=== PATIENT | female | born 1940 | race Caucasian/White ===

== ENCOUNTER → 2016-08-02 | Outpatient (CLI) | payer MEDICARE, BC ==
[2016-08-02 09:20] LABS: ANION GAP 12 (5-19); BLOOD UREA NITROGEN 14 mg/dL (7-20); CALCIUM 9.6 mg/dL (8.4-10.2); CARBON DIOXIDE 32 mmol/L (22-30); CHLORIDE 98 mmol/L (98-107); CHOLESTEROL 204.48 mg/dL (0-200); CREATININE RESULT 0.84 mg/dL (0.52-1.25); Direct HDL 38 mg/dL (>40); GLUCOSE 94 mg/dL (75-110); POTASSIUM 4.8 mmol/L (3.6-5.0); SODIUM 141.7 mmol/L (137-145); TRIGLYCERIDES 200 mg/dL (<150)
[2016-08-02 09:31] LABS: DIRECT LDL 125 mg/dL (<100)
== END ==
LOC: OD 07:58
PROVIDERS: ATTEND Family Medicine
DX: E03.9 Hypothyroidism, unspecified (principal); E78.5 Hyperlipidemia, unspecified; I10 Essential (primary) hypertension; Z79.899 Other long term (current) drug therapy
CPT/HCPCS: 36415; 80048; 80061; 83036; 84443

== ENCOUNTER → 2017-08-07 | Outpatient (CLI) | payer MEDICARE, BC ==
[2017-08-07 13:15] LABS: ANION GAP 13 (5-19); BLOOD UREA NITROGEN 18 mg/dL (7-20); CALCIUM 9.9 mg/dL (8.4-10.2); CARBON DIOXIDE 30 mmol/L (22-30); CHLORIDE 99 mmol/L (98-107); CHOLESTEROL 260.67 mg/dL (0-200); GLUCOSE 93 mg/dL (75-110); POTASSIUM 4.9 mmol/L (3.6-5.0); SODIUM 142.2 mmol/L (137-145); TRIGLYCERIDES 251 mg/dL (<150)
[2017-08-07 13:26] LABS: DIRECT LDL 156 mg/dL (<100)
[2017-08-07 13:31] LABS: VLDL CHOLESTEROL 50.2 mg/dL (10-31)
== END ==
LOC: OD 12:01
PROVIDERS: ATTEND Family Medicine
DX: E03.9 Hypothyroidism, unspecified (principal); E78.5 Hyperlipidemia, unspecified; I10 Essential (primary) hypertension; Z79.899 Other long term (current) drug therapy
CPT/HCPCS: 36415; 80048; 80061; 83036; 84443

== ENCOUNTER → 2018-05-07 | Outpatient (CLI) | payer MEDICARE, BC ==
--- NOTE | 2018-05-07 12:23 | RADIOLOGY REPORT (SQ) ---
EXAM DESCRIPTION: HIP LEFT AP/LATERAL COMPLETED DATE/TIME: 05/07/2018 11:46 am REASON FOR STUDY: PAIN IN LEFT HIP M25.552 PAIN IN LEFT HIP COMPARISON: 12/14/2006 NUMBER OF VIEWS: Two views. TECHNIQUE: AP pelvis and additional frog-leg view of the left hip. LIMITATIONS: None. FINDINGS: MINERALIZATION: Mild osteopenia. LEFT HIP: No fracture or dislocation. Mild hip joint narrowing is suggested. RIGHT HIP: Mild hip joint narrowing is suggested. No fracture or dislocation. PUBIS AND ISCHIUM: No fracture. PELVIS: No fracture. SACRUM: No fracture or dislocation. No worrisome bone lesions. LOWER LUMBAR SPINE: Interval placement of hardware with fusion visualized lower lumbosacral spine. Neural stimulating catheter, new finding on the right. SOFT TISSUES: No findings. OTHER: No other significant finding. IMPRESSION: 1. Since the previous examination dated 12/14/2006, interval placement of hardware with fusion visualized lower lumbosacral spine. Neural stimulating catheter, on the right. 2. Mild degenerative changes at the hips. 3. No acute osseous findings. TECHNICAL DOCUMENTATION: JOB ID: [id number] [employer]- All Rights Reserved Reading location - IP/workstation name: [email or web address]
== END ==
LOC: OD 11:19
PROVIDERS: ATTEND Physician Assistant Medical
DX: M16.0 Bilateral primary osteoarthritis of hip (principal); M25.552 Pain in left hip

== ENCOUNTER → 2018-08-08 | Outpatient (CLI) | payer MEDICARE, BC ==
[2018-08-08 12:33] LABS: ANION GAP 9 (5-19); BLOOD UREA NITROGEN 14 mg/dL (7-20); CALCIUM 9.4 mg/dL (8.4-10.2); CARBON DIOXIDE 26 mmol/L (22-30); CHLORIDE 104 mmol/L (98-107); CHOLESTEROL 247.72 mg/dL (0-200); GLUCOSE 88 mg/dL (75-110); SODIUM 139.1 mmol/L (137-145); TRIGLYCERIDES 174 mg/dL (<150)
[2018-08-08 12:44] LABS: DIRECT LDL 164 mg/dL (<100)
[2018-08-08 12:46] LABS: VLDL CHOLESTEROL 34.8 mg/dL (10-31)
== END ==
LOC: OD 10:56
PROVIDERS: ATTEND Family Medicine
DX: E03.9 Hypothyroidism, unspecified (principal); E78.5 Hyperlipidemia, unspecified; I10 Essential (primary) hypertension; Z79.899 Other long term (current) drug therapy
CPT/HCPCS: 36415; 80048; 80061; 83036; 84443

== ENCOUNTER → 2019-02-26 | Outpatient (CLI) | payer MEDICARE, BC ==
[2019-02-26 11:40] LABS: ABSOLUTE EOSINOPHILS # (AUTO) 0.1 10^3/uL (0.0-0.6); ABSOLUTE LYMPHOCYTES (AUTO) 1.8 10^3/uL (0.5-4.7); ABSOLUTE MONOCYTES (AUTO) 0.4 10^3/uL (0.1-1.4); ABSOLUTE NEUT (AUTO) 3.2 10^3/uL (1.7-8.2); BASOPHILS % (AUTO) 0.6 % (0-2); EOSINOPHILS % (AUTO) 1.6 % (0-6); HEMOGLOBIN 12.6 g/dL (12.0-15.5); LYMPHOCYTES % (AUTO) 33.1 % (13-45); MEAN CORPUSCULAR HEMOGLOBIN 29.8 pg (27.0-33.4); MEAN CORPUSCULAR VOLUME 88 fl (80-97); MONOCYTES % (AUTO) 7.7 % (3-13); PLATELET COUNT 183 10^3/uL (150-450); RED BLOOD COUNT 4.23 10^6/uL (3.72-5.28); TOTAL CELLS COUNTED % (AUTO) 100 %; WHITE BLOOD COUNT 5.6 10^3/uL (4.0-10.5)
[2019-02-26 12:08] LABS: ANION GAP 10 (5-19); BLOOD UREA NITROGEN 13 mg/dL (7-20); CALCIUM 8.5 mg/dL (8.4-10.2); CARBON DIOXIDE 33 mmol/L (22-30); CHLORIDE 101 mmol/L (98-107); GLUCOSE 90 mg/dL (75-110); POTASSIUM 3.5 mmol/L (3.6-5.0); URIC ACID 9.4 mg/dL (2.5-7.5)
[2019-02-26 12:12] LABS: ERYTHROCYTE SEDIMENTATION RATE 21 mm/hr (0-30)
[2019-02-26 12:23] LABS: C-REACTIVE PROTEIN < 5.0 mg/L (<10.0)
--- NOTE | 2019-02-26 16:19 | EKG REPORT ---
SEVERITY:- BORDERLINE ECG - SINUS RHYTHM BORDERLINE T ABNORMALITIES, ANT-LAT LEADS : Confirmed by: Bebe Castillo MD 26-Feb-2019 16:17:15
[2019-02-28 07:16] LABS: CYCLIC CITRUL PEPTIDE IGG/A AB 7 units (0-19)
== END ==
LOC: OD 10:25
PROVIDERS: ATTEND Orthopaedic Surgery
DX: Z01.810 Encounter for preprocedural cardiovascular examination (principal); Z01.812 Encounter for preprocedural laboratory examination; Z01.818 Encounter for other preprocedural examination; Z01.89 Encounter for other specified special examinations; M25.50 Pain in unspecified joint
CPT/HCPCS: 36415; 80048; 84550; 85025; 85652; 86038; 86140; 86200; 86430; 93005; 93010

== ENCOUNTER 2019-09-01 18:10 | Inpatient (IN) | payer MEDICARE, BC ==
[2019-09-01] MEDS ORDERED: PIPERACILLIN/TAZOBACTAM 4.5 GM VIAL IV ONE (18:32)
[2019-09-01] MEDS ORDERED: NORMAL SALINE 1000 ML 1,000 ML IV ONE (18:34)
--- NOTE | 2019-09-01 18:37 | ER Document Report ---
ED Medical Screen (RME) - General Chief Complaint: Altered Mental Status Stated Complaint: FALL/ALTERED MENTAL STATUS Time Seen by Provider: 09/01/19 18:32 Primary Care Provider: CARLOS COLLINS DO [Primary Care Provider] - Follow up as needed Mode of Arrival: Medic Information source: Emergency Med Personnel Notes: 78-year-old female presented to ED for altered mental status generalized weakness and foul-smelling urine. She states she has been weak and unsteady for about 3 days. She states she slid out of her recliner today with just before coming to the emergency room. She is able to answer some questions appropriately. According to the family she was having some drainage from her left ear no drainage noted at this time. She does have rhonchi throughout. O2 sats are between 86 and 90. Patient was started on septic protocol. I have greeted and performed a rapid initial assessment of this patient. A comprehensive ED assessment and evaluation of the patient, analysis of test results and completion of medical decision making process will be conducted by an additional ED providers. TRAVEL OUTSIDE OF THE [place] IN LAST 30 DAYS: No - Related Data Allergies/Adverse Reactions: hydromorphone HCl [From Dilaudid] Allergy (Severe, Verified 01/26/16 09:58) too sleepy lisinopril [Lisinopril] Allergy (Severe, Verified 01/26/16 09:58) heart races Past Medical History - Past Medical History Cardiac Medical History: Reports: Hx Hypercholesterolemia, Hx Hypertension - on meds Denies: Hx Coronary Artery Disease, Hx Heart Attack Pulmonary Medical History: Denies: Hx Asthma, Hx Bronchitis, Hx COPD, Hx Pneumonia Neurological Medical History: Denies: Hx Cerebrovascular Accident, Hx Seizures Musculoskeltal Medical History: Reports Hx Arthritis - back, hips Past Surgical History: Reports: Hx Genitourinary Surgery - bladder sling, Hx Hysterectomy, Hx Orthopedic Surgery - left knee replace left shoulder repair - Immunizations Hx Diphtheria, Pertussis, Tetanus Vaccination: Yes Doctor's Discharge - Discharge Referrals: CARLOS COLLINS DO [Primary Care Provider] - Follow up as needed
[2019-09-01 19:18] LABS: HEMATOCRIT 38.7 % (36.0-47.0); MEAN CORPUSCULAR HEMOGLOBIN 29.7 pg (27.0-33.4); MEAN CORPUSCULAR HGB CONC 33.7 g/dL (32.0-36.0); MEAN CORPUSCULAR VOLUME 88 fl (80-97); PLATELET COUNT 163 10^3/uL (150-450); RED BLOOD COUNT 4.39 10^6/uL (3.72-5.28); RED CELL DISTRIBUTION WIDTH 13.9 % (11.5-14.0); WHITE BLOOD COUNT 16.5 10^3/uL (4.0-10.5)
[2019-09-01 19:24] LABS: VENOUS BLOOD BASE EXCESS 6.2 mmol/L; VENOUS BLOOD HCO3 32.1 mmol/L (20-32); VENOUS BLOOD PCO2 51.1 mmHg (35-63); VENOUS BLOOD PH 7.42 (7.30-7.42)
--- NOTE | 2019-09-01 19:34 | RADIOLOGY REPORT (SQ) ---
EXAM DESCRIPTION: CHEST SINGLE VIEW IMAGES COMPLETED DATE/TIME: 09/01/2019 6:17 pm REASON FOR STUDY: fever short of breath ams COMPARISON: None. EXAM PARAMETERS: NUMBER OF VIEWS: One view. TECHNIQUE: Single frontal radiographic view of the chest acquired. RADIATION DOSE: NA LIMITATIONS: None. FINDINGS: LUNGS AND PLEURA: No opacities, masses or pneumothorax. No pleural effusion. MEDIASTINUM AND HILAR STRUCTURES: No masses. Contour normal. HEART AND VASCULAR STRUCTURES: Heart normal in size. Normal vasculature. BONES: No acute findings. HARDWARE: Spinal stimulator wires are noted. OTHER: Moderate hiatal hernia. IMPRESSION: No acute cardiopulmonary disease. Moderate hiatal hernia. TECHNICAL DOCUMENTATION: JOB ID: [id number] [employer]- All Rights Reserved Reading location - IP/workstation name: [email or web address]
[2019-09-01 19:36] LABS: INTERNATIONAL RATION (INR) 0.97; PROTHROMBIN TIME 12.9 SEC (11.4-15.4)
[2019-09-01 19:37] LABS: ALBUMIN 4.2 g/dL (3.5-5.0); ALKALINE PHOSPHATASE 74 U/L (38-126); ANION GAP 11 (5-19); ASPARTATE AMINO TRANSFERASE 22 U/L (14-36); BILIRUBIN,DIRECT 0.1 mg/dL (0.0-0.4); BLOOD UREA NITROGEN 17 mg/dL (7-20); CARBON DIOXIDE 31 mmol/L (22-30); CHLORIDE 96 mmol/L (98-107); GLUCOSE 141 mg/dL (75-110); POTASSIUM 3.5 mmol/L (3.6-5.0); TOTAL PROTEIN 7.1 g/dL (6.3-8.2)
[2019-09-01 19:39] LABS: ABSOLUTE LYMPHOCYTES# (MANUAL) 0.7 10^3/uL (0.5-4.7); ABSOLUTE MONOCYTES # (MANUAL) 0.7 10^3/uL (0.1-1.4); BAND NEUTROPHILS % (MANUAL) 2 % (3-5); BASOPHILS % (MANUAL) 0 % (0-2); EOSINOPHILS % (MANUAL) 0 % (0-6); LYMPHOCYTES % (MANUAL) 3 % (13-45); MONOCYTES % (MANUAL) 4 % (3-13); SEGMENTED NEUTROPHILS % (MAN) 90 % (42-78); TOTAL CELLS COUNTED 100
[2019-09-01 19:42] LABS: PLATELET COMMENT ADEQUATE; TOXIC GRANULATION SLIGHT
[2019-09-01 20:03] LABS: APPEARANCE,URINE SLIGHTLY-CLOUDY; BILIRUBIN,URINE NEGATIVE (NEGATIVE); COLOR,URINE YELLOW; GLUCOSE, URINE NEGATIVE (NEGATIVE); KETONES,URINE NEGATIVE (NEGATIVE); PROTEIN,URINE NEGATIVE (NEGATIVE); URINE SPECIFIC GRAVITY 1.008; UROBILINOGEN,URINE NEGATIVE mg/dL (<2.0)
[2019-09-01] MEDS ORDERED: NORMAL SALINE IV ONE (20:50)
--- NOTE | 2019-09-01 20:58 | ER Document Report ---
Entered by STEPAN PHILLIPS SCRIBE 09/01/192047 Acting as scribe for:BJ CEE IV, MD ED General - General Chief Complaint: General Weakness Stated Complaint: WEAKNESS Time Seen by Provider: 09/01/19 18:32 Mode of Arrival: Medic Information source: Patient, Emergency Med Personnel Notes: This 78 year old female patient with a history of septic shock due to UTI brought in by EMS from home presents to the ED today with complaints of altered mental status, generalized weakness, and foul-smelling urine for the past x3 days. EMS reports that the patient was sitting in the recliner and slid out, so the patient's called EMS. According to EMS, patient has had similar symptoms in the past and was diagnosed with an UTI. EMS states that the patient was febrile with a temperature of 100.4, so they administered x975 mg Tylenol en route. Patient also reports poor appetite, left ear discharge, and a blister to the left forearm that was noticed today. TRAVEL OUTSIDE OF THE [place] IN LAST 30 DAYS: No - Related Data Allergies/Adverse Reactions: hydromorphone HCl [From Dilaudid] Allergy (Severe, Verified 01/26/16 09:58) too sleepy lisinopril [Lisinopril] Allergy (Severe, Verified 01/26/16 09:58) heart races Past Medical History - General Information source: Emergency Med Personnel - Social History Smoking Status: Never Smoker Cigarette use (# per day): No Chew tobacco use (# tins/day): No Smoking Education Provided: No Frequency of alcohol use: None Drug Abuse: None Lives with: Spouse/Significant other Family History: Reviewed & Not Pertinent Patient has suicidal ideation: No Patient has homicidal ideation: No - Past Medical History Cardiac Medical History: Reports: Hx Hypercholesterolemia, Hx Hypertension - on meds Musculoskeletal Medical History: Reports Hx Arthritis - back, hips Past Surgical History: Reports: Hx Genitourinary Surgery - bladder sling, Hx Hysterectomy, Hx Orthopedic Surgery - left knee replace left shoulder repair - Immunizations Hx Diphtheria, Pertussis, Tetanus Vaccination: Yes Hx Pneumococcal Vaccination: 04/17/13 Review of Systems - Review of Systems Constitutional: See HPI, Weakness EENT: See HPI, Ear discharge Cardiovascular: No symptoms reported Respiratory: No symptoms reported Gastrointestinal: See HPI, Poor appetite Genitourinary: See HPI, Other - Foul-smelling urine Female Genitourinary: No symptoms reported Musculoskeletal: No symptoms reported Skin: See HPI, Other - Blister Hematologic/Lymphatic: No symptoms reported Neurological/Psychological: See HPI, Other - Altered mental status -: Yes All other systems reviewed and negative Physical Exam - Vital signs Vitals: Resp Pulse Ox 14 96 09/01/19 18:20 09/01/19 18:20 Interpretation: Normal - General General appearance: Alert In distress: None - HEENT Head: Normocephalic, Atraumatic Eyes: Normal Pupils: PERRL - Respiratory Respiratory status: Other - 4L O2 via NC Chest status: Nontender Breath sounds: Normal Chest palpation: Normal - Cardiovascular Rhythm: Regular Heart sounds: Normal auscultation Murmur: No Friction rub: No Gallop: None auscultated - Abdominal Inspection: Normal Distension: No distension Bowel sounds: Normal Tenderness: Nontender - Abdomen soft Organomegaly: No organomegaly - Back Back: Normal, Nontender - Extremities General upper extremity: Normal inspection General lower extremity: Normal inspection. No: Edema - Neurological Neuro grossly intact: Yes - Psychological Associated symptoms: Normal affect, Normal mood - Skin Skin irregularity: Erythema - Vesicular rash noted to dorsal surface of left forearm with surrounding erythema and warmth. No weeping Course - Re-evaluation Re-evalutation: 09/01/19 21:02 Results of ED MSE discussed with patient. All questions were answered. Patient advised admission is recommended for treatment of UTI with IV antibiotics given the patient's history of septic shock secondary to UTI in the past. Patient agreed with plan for admission. - Vital Signs Vital signs: Temp Pulse Resp BP Pulse Ox 97.5 F 88 11 L 102/64 100 09/01/19 21:58 09/01/19 18:21 09/01/19 21:01 09/01/19 21:00 09/01/19 21:01 - Laboratory Result Diagrams: 09/01/19 18:44 09/01/19 18:44 Laboratory results interpreted by me: 09/01/19 09/01/19 09/01/19 18:44 18:44 18:44 WBC 16.5 H Seg Neuts % (Manual) 90 H Band Neutrophils % 2 L Lymphocytes % (Manual) 3 L Abs Neuts (Manual) 15.2 H VBG HCO3 32.1 H Potassium 3.5 L Chloride 96 L Carbon Dioxide 31 H Est GFR ( Amer) 50 L Est GFR (MDRD) Non-Af 41 L Glucose 141 H POC Glucose Urine Nitrite (Reflex) Leukocyte Esterase Rfl 09/01/19 09/01/19 19:19 19:45 WBC Seg Neuts % (Manual) Band Neutrophils % Lymphocytes % (Manual) Abs Neuts (Manual) VBG HCO3 Potassium Chloride Carbon Dioxide Est GFR ( Amer) Est GFR (MDRD) Non-Af Glucose POC Glucose 133 H Urine Nitrite (Reflex) POSITIVE H Leukocyte Esterase Rfl MODERATE H - Diagnostic Test Radiology reviewed: Reports reviewed Discharge - Discharge Clinical Impression: SIRS (systemic inflammatory response syndrome) UTI (urinary tract infection) Qualifiers: Urinary tract infection type: site unspecified Hematuria presence: without hematuria Qualified Code(s): N39.0 - Urinary tract infection, site not specified Condition: Good Disposition: ADMITTED INPATIENT Admitting Provider: Waldo (Hospitalist) Unit Admitted: Medical Floor I personally performed the services described in the documentation, reviewed and edited the documentation which was dictated to the scribe in my presence, and it accurately records my words and actions.
[2019-09-01] MEDS ORDERED: ONDANSETRON HCL INJ/PF 4 MG/2 ML SDV IV PRN (21:29)
[2019-09-01] MEDS ORDERED: MAG HYDROX/AL HYDROX/SIMETH SUSP 30 ML UDCUP PO PRN (21:29)
[2019-09-01] MEDS ORDERED: MAGNESIUM HYDROXIDE SUSP 30 ML UDCUP PO PRN (21:29)
[2019-09-01] MEDS ORDERED: HYDRALAZINE HCL INJ/PF 20 MG/1 ML SDV IV PRN (21:34)
[2019-09-01] MEDS ORDERED: GUAIFENESIN SYRP 200 MG/10 ML UDC PO PRN (21:34)
[2019-09-01] MEDS ORDERED: MORPHINE SULFATE 10 MG/ML INJ IV PRN ×3 (21:34)
[2019-09-01] MEDS: HEPARIN SOD (PORCINE) 5,000 UNIT/ML 1 ML VIAL SUBCUT SCH (22:12)
[2019-09-01] MEDS: NEOMY SULF/POLYMYX B SULF/HC OTIC SUSP 10 ML AS SCH (22:13)
[2019-09-01] MEDS: CEFTRIAXONE 1 GM/D5W RTU 1 GM/50 ML RTUPB IV SCH (22:14)
--- NOTE | 2019-09-01 22:15 | EKG REPORT ---
SEVERITY:- ABNORMAL ECG - SINUS RHYTHM INFERIOR INFARCT, AGE INDETERMINATE BORDERLINE R WAVE PROGRESSION, ANTERIOR LEADS : Confirmed by: Julia Palomo 01-Sep-2019 22:14:54
[2019-09-01] MEDS: DEXTROSE 5%-LACTATED RINGERS 1,000 ML IV PRN (23:34)
--- NOTE | 2019-09-02 00:10 | PDOC H&P ---
History of Present Illness Admission Date/PCP: 09/01/2019 21:02 CARLOS COLLINS DO Patient complains of: Generalized weakness History of Present Illness: ANA CABRERA is a 78 year old female who presented to the emergency room via EMS from home with a 3-day history of generalized weakness. Patient is mildly lethargic but admits that she has experienced progressive generalized weakness over the last 3 days becoming severe today, when she could no longer get out of her chair at home. Her weakness has been accompanied by a decrease in appetite and an increase in lethargy/somnolence. Her weakness has been associated with foul-smelling urine. She denies any other accompanying or associated signs and symptoms. She admits that she has experienced numerous prior episodes in the past with urinary tract infections often resulting in sepsis. She has not identified any aggravating or ameliorating factors for her generalized weakness. EMS documented a fever of 100.4 F upon their arrival at the scene. In the emergency room the patient has been afebrile, however she was noted to have an elevated white blood count at 16.5 and urinalysis significant for pyuria and a positive nitrite. The patient was treated with empiric antibiotics in the emergency room and subsequently admitted to the hospital for further evaluation and treatment. Past Medical History Cardiac Medical History: Reports: Hyperlipidema, Hypertension - on meds Denies: Coronary Artery Disease, Myocardial Infarction Pulmonary Medical History: Denies: Asthma, Bronchitis, Chronic Obstructive Pulmonary Disease (COPD), Pneumonia EENT Medical History: Denies: Cataracts, Ears - Hearing aids Neurological Medical History: Denies: Hemorrhagic CVA, Ischemic CVA, Seizures Endocrine Medical History: Denies: Diabetes Mellitus Type 1, Diabetes Mellitus Type 2, Hyperthyroidism, Hypothyroidism, Obesity Renal/ Medical History: Reports: Other - Frequent urinary tract infections Denies: Chronic Kidney Disease, Nephrolithiasis Malignancy Medical History: Reports: None GI Medical History: Denies: Cirrhosis, Crohn's Disease, Hepatitis, Ulcerative Colitis Musculoskeltal Medical History: Reports: Arthritis - back, hips Denies: Gout Skin Medical History: Denies: Eczema, Psoriasis Psychiatric Medical History: Denies: Alcohol Dependency, Substance Abuse, Tobacco Dependency Traumatic Medical History: Reports: None Hematology: Denies: Anemia, Bleeding Tendencies Infectious Medical History: Reports: None Past Surgical History Past Surgical History: Reports: Hysterectomy, Knee Replacement, Orthopedic Surgery - Left knee replacement, left shoulder repair Social History Information Source: Patient, Relative - Lives with: Spouse/Significant other Smoking Status: Never Smoker Electronic Cigarette use?: No Frequency of Alcohol Use: None Hx Recreational Drug Use: No Drugs: None Hx Prescription Drug Abuse: No - Advance Directive Resuscitation Status: Full Code Surrogate healthcare decision maker:: Umesh Cabrera Family History Family History: CAD - Aunts, DM - Mother, Hypertension - Father, Malignancy - Brother Parental Family History Reviewed: Yes Children Family History Reviewed: No Sibling(s) Family History Reviewed.: Yes Medication/Allergy Home Medications: Lansoprazole 30 mg PO DAILY 06/30/12 Pregabalin [Lyrica 50 mg Capsule] 50 mg PO QHS 06/30/12 Levothyroxine Sodium 25 mcg PO DAILY #30 tablet 01/18/15 Celecoxib [Celebrex 200 mg Capsule] 200 mg PO DAILY 12/29/15 Cetirizine HCl/Pseudoephedrine [Zyrtec-D 12 Hour Tablet] 1 tab.sr PO Q12 12/29/15 Hydralazine HCl 50 mg PO BID 12/29/15 Hydrochlorothiazide 50 mg PO DAILY 12/29/15 Irbesartan [Avapro] 300 mg PO QHS 12/29/15 Lorazepam [Ativan 0.5 mg Tablet] 0.5 mg PO Q4 PRN 12/29/15 Oxycodone HCl/Acetaminophen [Oxycodone-Acetaminophen 5-325] 1 tab PO TID PRN 12/29/15 Sennosides [Natural Laxative] 25 mg PO DAILY 01/26/16 Simethicone [Gas-X Ultra Strength] 180 mg PO DAILY PRN 01/26/16 Allergies/Adverse Reactions: hydromorphone HCl [From Dilaudid] Allergy (Severe, Verified 01/26/16 09:58) too sleepy lisinopril [Lisinopril] Allergy (Severe, Verified 01/26/16 09:58) heart races Review of Systems Constitutional: PRESENT: as per HPI, weakness, other - Poor appetite and poor oral intake Eyes: ABSENT: visual disturbances, other - Eye pain Ears: PRESENT: other - Discharge from left ear. ABSENT: hearing changes Nose, Mouth, and Throat: ABSENT: headache(s), sore throat Cardiovascular: ABSENT: chest pain, palpitations Respiratory: ABSENT: cough, dyspnea Gastrointestinal: ABSENT: abdominal pain, constipation, diarrhea, nausea, vomiting Genitourinary: PRESENT: other - Foul-smelling urine. ABSENT: dysuria, hematuria Musculoskeletal: PRESENT: as per HPI, back pain - Chronic, muscle weakness, ot her - Uses a walker to ambulate at home. ABSENT: joint swelling Integumentary: PRESENT: other - "Blisters" on left forearm started this morning. ABSENT: pruritus, rash Neurological: ABSENT: confusion, convulsions, focal weakness, memory loss, synco pe Psychiatric: ABSENT: anxiety, depression Endocrine: ABSENT: cold intolerance, heat intolerance Hematologic/Lymphatic: ABSENT: easy bleeding, easy bruising Allergic/Immunologic: ABSENT: seasonal rhinorrhea Physical Exam Vital Signs: Temp Pulse Resp BP Pulse Ox 98.8 F 88 12 119/78 100 09/01/19 19:48 09/01/19 18:21 09/01/19 19:01 09/01/19 19:00 09/01/19 19:01 Intake & Output 08/30/19 08/31/19 09/01/19 23:59 23:59 23:59 Intake Total 1000 Balance 1000 Weight 69.1 kg General appearance: PRESENT: no acute distress, cooperative Head exam: PRESENT: atraumatic, normocephalic Eye exam: PRESENT: conjunctiva pink. ABSENT: conjunctival injection, scleral icterus Ear exam: PRESENT: drainage - Minimal nonpurulent drainage noted in the left EAC.. ABSENT: bleeding Mouth exam: PRESENT: dry mucosa, neck supple Neck exam: ABSENT: thyromegaly, tracheal deviation Respiratory exam: PRESENT: clear to auscultation deja, symmetrical, unlabored Cardiovascular exam: PRESENT: RRR. ABSENT: clicks, gallop, rubs Pulses: PRESENT: normal radial pulses, normal dorsalis pedis pul Vascular exam: PRESENT: normal capillary refill. ABSENT: pallor GI/Abdominal exam: PRESENT: normal bowel sounds, soft Rectal exam: PRESENT: deferred Extremities exam: ABSENT: joint swelling, pedal edema Musculoskeletal exam: ABSENT: deformity, dislocation Neurological exam: PRESENT: altered - Mildly somnolent and lethargic but arousable, oriented to person, oriented to place, oriented to time, oriented to situation, CN II-XII grossly intact. ABSENT: motor sensory deficit Psychiatric exam: PRESENT: appropriate affect, normal mood Skin exam: PRESENT: dry, intact, warm, other - Non-erythematous superficial papular/bullous 1.0 to 1.5 cm in diameter lesions, some with confluence, limited to the dorsal surface of the left forearm consistent with a localized allergic response/contact dermatitis. ABSENT: jaundice, rash Results Laboratory Results: 09/01/19 18:44 09/01/19 18:44 09/01/19 09/01/19 09/01/19 18:44 18:44 18:44 WBC 16.5 H RBC 4.39 Hgb 13.0 Hct 38.7 MCV 88 MCH 29.7 MCHC 33.7 RDW 13.9 Plt Count 163 Seg Neutrophils % Not Reportable VBG pH 7.42 VBG pCO2 51.1 VBG HCO3 32.1 H VBG Base Excess 6.2 Sodium 138.1 Potassium 3.5 L Chloride 96 L Carbon Dioxide 31 H Anion Gap 11 BUN 17 Creatinine 1.25 Est GFR ( Amer) 50 L Glucose 141 H Lactic Acid Calcium 9.0 Total Bilirubin 1.0 AST 22 Alkaline Phosphatase 74 Total Protein 7.1 Albumin 4.2 Urine Color Urine Appearance Urine pH Ur Specific [place] Urine Protein Urine Glucose (UA) Urine Ketones Urine Blood Urine RBC (Auto) 09/01/19 09/01/19 18:44 19:45 WBC RBC Hgb Hct MCV MCH MCHC RDW Plt Count Seg Neutrophils % VBG pH VBG pCO2 VBG HCO3 VBG Base Excess Sodium Potassium Chloride Carbon Dioxide Anion Gap BUN Creatinine Est GFR ( Amer) Glucose Lactic Acid 2.1 Calcium Total Bilirubin AST Alkaline Phosphatase Total Protein Albumin Urine Color YELLOW Urine Appearance SLIGHTLY-CLOUDY Urine pH 5.0 Ur Specific [place] 1.008 Urine Protein NEGATIVE Urine Glucose (UA) NEGATIVE Urine Ketones NEGATIVE Urine Blood NEGATIVE Urine RBC (Auto) 0 Impressions: Chest X-Ray 09/01/19 18:32 IMPRESSION: No acute cardiopulmonary disease. Moderate hiatal hernia. Assessment and Plan - Diagnosis (1) UTI (urinary tract infection) Qualifiers: Urinary tract infection type: site unspecified Hematuria presence: without hematuria Qualified Code(s): N39.0 - Urinary tract infection, site not specified Is this a current diagnosis for this admission?: Yes (2) RAMANA (acute kidney injury) Is this a current diagnosis for this admission?: Yes (3) SIRS (systemic inflammatory response syndrome) Is this a current diagnosis for this admission?: Yes (4) Leukocytosis Qualifiers: Leukocytosis type: unspecified Qualified Code(s): D72.829 - Elevated white blood cell count, unspecified Is this a current diagnosis for this admission?: Yes (5) Chronic renal insufficiency, stage III (moderate) Is this a current diagnosis for this admission?: Yes (6) Chronic low back pain Qualifiers: Back pain laterality: unspecified Sciatica presence: unspecified whether sciatica present Qualified Code(s): M54.5 - Low back pain; G89.29 - Other chronic pain Is this a current diagnosis for this admission?: Yes (7) Hypothyroid Qualifiers: Hypothyroidism type: unspecified Qualified Code(s): E03.9 - Hypothyroidism, unspecified Is this a current diagnosis for this admission?: Yes (8) Hypertension Qualifiers: Hypertension type: essential hypertension Qualified Code(s): I10 - Essential (primary) hypertension Is this a current diagnosis for this admission?: Yes - Plan Summary Summary: Patient is admitted to the medical floor where she received routine supportive and symptomatic cares. She will be treated with IV antibiotics utilizing Rocephin 1 g daily. She will receive IV fluids using D5 LR at 167 mL/h x 12 hours. Serial lactic acid levels will be obtained. Neurochecks will be obtained every 4 hours initially. CBCs, metabolic profiles, magnesium levels and additional radiographic evaluations will be obtained as appropriate. She will receive Ativan 1 mg IV every 4 hours as needed for anxiety or restlessness. To receive morphine sulfate 2 to 4 mg IV every 2 hours as needed for pain using a sliding scale for dosing. She will be given a cardiac diet as tolerated. Oral fluid intake will be encouraged. Her home medications will be resumed, as appropriate, once her medication list has been verified and reconciled. - Time Time Spent with patient: 15-24 minutes Medications reviewed and adjusted accordingly: Yes Anticipated discharge: Home - Inpatient Certification Based on my medical assessment, after consideration of the patient's comorbidities, presenting symptoms, or acuity I expect that the services needed warrant INPATIENT care.: Yes I certify that my determination is in accordance with my understanding of Medicare's requirements for reasonable and necessary INPATIENT services [42 CFR 412.3e].: Yes Medical Necessity: Need Close Monitoring Due to Risk of Patient Decompensation, Need For IV Fluids, Need for Neurological Checks, Need for IV Antibiotics, Risk of Complication if Not Cared For in Hospital
[2019-09-02] MEDS: HEPARIN SOD (PORCINE) 5,000 UNIT/ML 1 ML VIAL SUBCUT SCH ×3 (05:43→22:03)
[2019-09-02] MEDS: PANTOPRAZOLE SODIUM 40 MG TABLET.DR PO SCH (05:43)
[2019-09-02] MEDS: ACETAMINOPHEN 325 MG TABLET PO PRN (05:43)
[2019-09-02] MEDS: DEXTROSE 5%-LACTATED RINGERS 1,000 ML IV PRN (05:44)
[2019-09-02 06:08] LABS: HEMOGLOBIN 11.8 g/dL (12.0-15.5); MEAN CORPUSCULAR HEMOGLOBIN 29.6 pg (27.0-33.4); MEAN CORPUSCULAR HGB CONC 33.7 g/dL (32.0-36.0); MEAN CORPUSCULAR VOLUME 88 fl (80-97); PLATELET COUNT 124 10^3/uL (150-450); RED BLOOD COUNT 3.99 10^6/uL (3.72-5.28); RED CELL DISTRIBUTION WIDTH 13.4 % (11.5-14.0)
[2019-09-02 06:45] LABS: FREE T3 2.7 pg/mL (2.77-5.27)
[2019-09-02 06:49] LABS: ANION GAP 10 (5-19); BLOOD UREA NITROGEN 17 mg/dL (7-20); CALCIUM 7.9 mg/dL (8.4-10.2); CARBON DIOXIDE 25 mmol/L (22-30); CHLORIDE 104 mmol/L (98-107); GLUCOSE 145 mg/dL (75-110); POTASSIUM 3.5 mmol/L (3.6-5.0)
[2019-09-02 06:59] LABS: THYROID STIMULATING HORMONE 0.24 uIU/mL (0.47-4.68)
[2019-09-02] MEDS: MAGNESIUM SULFATE/D5W 1 GM/100 ML RTUPB IV SCH ×3 (08:45→12:29)
[2019-09-02] MEDS: LORAZEPAM INJ 2 MG/1 ML VIAL IV PRN (08:47)
[2019-09-02] MEDS: NEOMY SULF/POLYMYX B SULF/HC OTIC SUSP 10 ML AS SCH ×3 (09:15→17:42)
[2019-09-02] MEDS: DOCUSATE SODIUM 100 MG CAPSULE PO SCH ×2 (09:15→17:42)
--- NOTE | 2019-09-02 13:32 | PDOC PROGRESS REPORT ---
Subjective Progress Note for:: 09/02/19 Reason For Visit: UTI,SIRS,RAMANA 09/02/2019 She admitted to the hospital last night for generalized weakness for the last 3 days as well as mildly lethargic. Possible UTI and possible cellulitis of the left upper extremity Physical Exam Vital Signs: Temp Pulse Resp BP Pulse Ox 98.2 F 84 19 107/81 100 09/02/19 11:46 09/02/19 11:46 09/02/19 11:46 09/02/19 11:46 09/02/19 11:46 Intake & Output 09/01/19 09/02/19 09/03/19 06:59 06:59 06:59 Intake Total 3343 436 Output Total 500 Balance 2843 436 Weight 70 kg General appearance: PRESENT: no acute distress Respiratory exam: PRESENT: clear to auscultation deja. ABSENT: rales, rhonchi, wheezes Cardiovascular exam: PRESENT: RRR. ABSENT: diastolic murmur, rubs, systolic murmur Extremities exam: PRESENT: +1 edema, other - Weeping oozing pustules of the left upper extremity over the brachial radialis. Also edema and redness Neurological exam: PRESENT: alert, awake, oriented to person, oriented to place, oriented to time, oriented to situation, CN II-XII grossly intact. ABSENT: motor sensory deficit Psychiatric exam: PRESENT: appropriate affect, normal mood. ABSENT: homicidal ideation, suicidal ideation Results Laboratory Results: 09/02/19 05:37 09/02/19 05:37 09/01/19 09/01/19 09/01/19 18:44 18:44 18:44 WBC 16.5 H RBC 4.39 Hgb 13.0 Hct 38.7 MCV 88 MCH 29.7 MCHC 33.7 RDW 13.9 Plt Count 163 Seg Neutrophils % Not Reportable VBG pH 7.42 VBG pCO2 51.1 VBG HCO3 32.1 H VBG Base Excess 6.2 Sodium 138.1 Potassium 3.5 L Chloride 96 L Carbon Dioxide 31 H Anion Gap 11 BUN 17 Creatinine 1.25 Est GFR ( Amer) 50 L Glucose 141 H Lactic Acid Calcium 9.0 Magnesium Total Bilirubin 1.0 AST 22 Alkaline Phosphatase 74 Total Protein 7.1 Albumin 4.2 TSH Free T3 pg/mL Urine Color Urine Appearance Urine pH Ur Specific [place] Urine Protein Urine Glucose (UA) Urine Ketones Urine Blood Urine RBC (Auto) 09/01/19 09/01/19 09/01/19 18:44 19:45 21:15 WBC RBC Hgb Hct MCV MCH MCHC RDW Plt Count Seg Neutrophils % VBG pH VBG pCO2 VBG HCO3 VBG Base Excess Sodium Potassium Chloride Carbon Dioxide Anion Gap BUN Creatinine Est GFR ( Amer) Glucose Lactic Acid 2.1 1.7 Calcium Magnesium Total Bilirubin AST Alkaline Phosphatase Total Protein Albumin TSH Free T3 pg/mL Urine Color YELLOW Urine Appearance SLIGHTLY-CLOUDY Urine pH 5.0 Ur Specific [place] 1.008 Urine Protein NEGATIVE Urine Glucose (UA) NEGATIVE Urine Ketones NEGATIVE Urine Blood NEGATIVE Urine RBC (Auto) 0 09/02/19 09/02/19 09/02/19 01:30 05:37 05:37 WBC 15.0 H RBC 3.99 Hgb 11.8 L Hct 35.0 L MCV 88 MCH 29.6 MCHC 33.7 RDW 13.4 Plt Count 124 L Seg Neutrophils % VBG pH VBG pCO2 VBG HCO3 VBG Base Excess Sodium Potassium Chloride Carbon Dioxide Anion Gap BUN Creatinine Est GFR ( Amer) Glucose Lactic Acid 1.9 2.1 Calcium Magnesium Total Bilirubin AST Alkaline Phosphatase Total Protein Albumin TSH Free T3 pg/mL Urine Color Urine Appearance Urine pH Ur Specific [place] Urine Protein Urine Glucose (UA) Urine Ketones Urine Blood Urine RBC (Auto) 09/02/19 09/02/19 09/02/19 05:37 05:37 10:52 WBC RBC Hgb Hct MCV MCH MCHC RDW Plt Count Seg Neutrophils % VBG pH VBG pCO2 VBG HCO3 VBG Base Excess Sodium 138.6 Potassium 3.5 L Chloride 104 Carbon Dioxide 25 Anion Gap 10 BUN 17 Creatinine 0.99 Est GFR ( Amer) > 60 Glucose 145 H Lactic Acid 2.1 Calcium 7.9 L Magnesium 1.1 L* Total Bilirubin AST Alkaline Phosphatase Total Protein Albumin TSH 0.24 L Free T3 pg/mL 2.70 L Urine Color Urine Appearance Urine pH Ur Specific [place] Urine Protein Urine Glucose (UA) Urine Ketones Urine Blood Urine RBC (Auto) Impressions: Chest X-Ray 09/01/19 18:32 IMPRESSION: No acute cardiopulmonary disease. Moderate hiatal hernia. Assessment and Plan - Diagnosis (1) Hypo-magnesium Is this a current diagnosis for this admission?: Yes (2) Cellulitis Is this a current diagnosis for this admission?: Yes (3) Chronic renal insufficiency, stage III (moderate) Is this a current diagnosis for this admission?: Yes (4) Leukocytosis Qualifiers: Leukocytosis type: unspecified Qualified Code(s): D72.829 - Elevated white blood cell count, unspecified Is this a current diagnosis for this admission?: Yes (5) SIRS (systemic inflammatory response syndrome) Is this a current diagnosis for this admission?: Yes (6) RAMANA (acute kidney injury) Is this a current diagnosis for this admission?: Yes (7) Bacteremia due to Gram-negative bacteria Is this a current diagnosis for this admission?: Yes (8) UTI (urinary tract infection) Qualifiers: Urinary tract infection type: site unspecified Hematuria presence: without hematuria Qualified Code(s): N39.0 - Urinary tract infection, site not specified Is this a current diagnosis for this admission?: Yes - Plan Summary Summary: Patient is admitted to the medical floor where she received routine supportive and symptomatic cares. She will be treated with IV antibiotics utilizing Rocephin 1 g daily. She will receive IV fluids using D5 LR at 167 mL/h x 12 hours. Serial lactic acid levels will be obtained. Neurochecks will be obtained every 4 hours initially. CBCs, metabolic profiles, magnesium levels and additional radiographic evaluations will be obtained as appropriate. She will receive Ativan 1 mg IV every 4 hours as needed for anxiety or restlessness. To receive morphine sulfate 2 to 4 mg IV every 2 hours as needed for pain using a sliding scale for dosing. She will be given a cardiac diet as tolerated. Oral fluid intake will be encouraged. Her home medications will be resumed, as appropriate, once her medication list has been verified and reconciled. 09/02/2019 Impression 98 5 pulse 78 blood pressure 122/76. Count is still elevated 15,000 sodium 138 potassium 3.5 BUN is 17 creatinine 0.99 Museum low at 1.1 TSH low at 0.24 Chest x-ray is negative Patient has a weeping oozing left upper extremity apparent cellulitis. Have ordered wound cultures and got add vancomycin. Nurse and I expressed some purulent material from her left upper extremity Patient has been getting magnesium replacements Patient is awake alert talking states that her arm started with just a small abrasion, evidently has been scratching and picking at it and it is worsened. UA does appear to be infected. Currently patient does not appear to be septic - Time Time Spent with patient: 25-34 minutes
[2019-09-02] MEDS ORDERED: VANCOMYCIN HCL 0 MG in DEXTROSE 5%-WATER 250 ML IV NR (18:15)
[2019-09-02] MEDS: VANCOMYCIN HCL 1,000 MG in DEXTROSE 5%-WATER 250 ML IV SCH (21:30)
[2019-09-02] MEDS: ONDANSETRON HCL INJ/PF 4 MG/2 ML SDV IV PRN (22:55)
[2019-09-02] MEDS: CEFTRIAXONE 1 GM/D5W RTU 1 GM/50 ML RTUPB IV SCH (23:31)
[2019-09-03] MEDS: LORAZEPAM INJ 2 MG/1 ML VIAL IV PRN ×2 (01:46→21:35)
[2019-09-03] MEDS: HEPARIN SOD (PORCINE) 5,000 UNIT/ML 1 ML VIAL SUBCUT SCH ×3 (05:39→21:32)
[2019-09-03] MEDS: PANTOPRAZOLE SODIUM 40 MG TABLET.DR PO SCH (05:40)
[2019-09-03] MEDS: ONDANSETRON HCL INJ/PF 4 MG/2 ML SDV IV PRN ×2 (05:42→07:49)
[2019-09-03 07:13] LABS: ABSOLUTE BASOPHILS # (AUTO) 0.1 10^3/uL (0.0-0.2); ABSOLUTE EOSINOPHILS # (AUTO) 0.1 10^3/uL (0.0-0.6); ABSOLUTE LYMPHOCYTES (AUTO) 1.5 10^3/uL (0.5-4.7); ABSOLUTE MONOCYTES (AUTO) 0.8 10^3/uL (0.1-1.4); ABSOLUTE NEUT (AUTO) 13.3 10^3/uL (1.7-8.2); BASOPHILS % (AUTO) 0.8 % (0-2); EOSINOPHILS % (AUTO) 0.3 % (0-6); HEMATOCRIT 31.5 % (36.0-47.0); HEMOGLOBIN 10.9 g/dL (12.0-15.5); LYMPHOCYTES % (AUTO) 9.7 % (13-45); MEAN CORPUSCULAR HEMOGLOBIN 29.7 pg (27.0-33.4); MEAN CORPUSCULAR HGB CONC 34.5 g/dL (32.0-36.0); MEAN CORPUSCULAR VOLUME 86 fl (80-97); MONOCYTES % (AUTO) 4.9 % (3-13); PLATELET COUNT 132 10^3/uL (150-450); RED BLOOD COUNT 3.66 10^6/uL (3.72-5.28); RED CELL DISTRIBUTION WIDTH 13.3 % (11.5-14.0); SEGMENTED NEUTROPHILS % (AUTO) 84.3 % (42-78); TOTAL CELLS COUNTED % (AUTO) 100 %; WHITE BLOOD COUNT 15.7 10^3/uL (4.0-10.5)
[2019-09-03 07:31] LABS: ANION GAP 7 (5-19); BLOOD UREA NITROGEN 10 mg/dL (7-20); CALCIUM 8.6 mg/dL (8.4-10.2); CARBON DIOXIDE 29 mmol/L (22-30); CHLORIDE 102 mmol/L (98-107); GLUCOSE 94 mg/dL (75-110); POTASSIUM 3.5 mmol/L (3.6-5.0)
[2019-09-03] MEDS: NEOMY SULF/POLYMYX B SULF/HC OTIC SUSP 10 ML AS SCH ×3 (09:54→18:05)
[2019-09-03] MEDS: DOCUSATE SODIUM 100 MG CAPSULE PO SCH ×2 (09:56→18:06)
[2019-09-03] MEDS ORDERED: MORPHINE SULFATE 10 MG/ML INJ IV PRN (14:34)
--- NOTE | 2019-09-03 14:34 | PDOC PROGRESS REPORT ---
Subjective Progress Note for:: 09/03/19 Subjective:: Patient feels well today but still having some pain in her left upper extremity with persistent purulent drainage. Denies fever or chills. Reason For Visit: UTI,SIRS,RAMANA Physical Exam Vital Signs: Temp Pulse Resp BP Pulse Ox 97.3 F 88 16 141/77 H 98 09/03/19 12:06 09/03/19 12:06 09/03/19 12:06 09/03/19 12:06 09/03/19 12:06 Intake & Output 09/02/19 09/03/19 09/04/19 06:59 06:59 06:59 Intake Total 3343 2292 Output Total 500 Balance 2843 2292 Weight 70 kg 70.4 kg General appearance: PRESENT: no acute distress, cooperative Neck exam: ABSENT: JVD Respiratory exam: PRESENT: symmetrical, unlabored. ABSENT: accessory muscle use, retraction, tachypnea GI/Abdominal exam: PRESENT: soft. ABSENT: rebound, rigid, tenderness Extremities exam: PRESENT: other - Redness in the left upper extremity stretch ing from biceps region to just proximal to the wrist. Induration noted in the middle of forearm with expression of purulent substance which drains when pressure is applied. Small pustules also present. Neurological exam: PRESENT: alert, awake, oriented to person, oriented to place, oriented to time, oriented to situation Results Laboratory Results: 09/03/19 06:55 09/03/19 06:55 09/03/19 09/03/19 09/03/19 06:55 06:55 10:33 WBC 15.7 H RBC 3.66 L Hgb 10.9 L Hct 31.5 L MCV 86 MCH 29.7 MCHC 34.5 RDW 13.3 Plt Count 132 L Seg Neutrophils % 84.3 H Sodium 137.5 Potassium 3.5 L Chloride 102 Carbon Dioxide 29 Anion Gap 7 BUN 10 Creatinine 0.83 Est GFR ( Amer) > 60 Glucose 94 Calcium 8.6 Magnesium 1.9 Free T4 1.75 09/01/19 19:45 Catheterized Urine Urine Culture - Final Klebsiella Pneumoniae Impressions: Chest X-Ray 09/01/19 18:32 IMPRESSION: No acute cardiopulmonary disease. Moderate hiatal hernia. Assessment and Plan - Diagnosis (1) Abscess of left upper extremity Is this a current diagnosis for this admission?: Yes (2) Cellulitis Is this a current diagnosis for this admission?: Yes (3) UTI due to Klebsiella species Is this a current diagnosis for this admission?: Yes (4) Hypo-magnesium Is this a current diagnosis for this admission?: Yes - Plan Summary Summary: Patient is admitted to the medical floor where she received routine supportive and symptomatic cares. She will be treated with IV antibiotics utilizing Rocephin 1 g daily. She will receive IV fluids using D5 LR at 167 mL/h x 12 hours. Serial lactic acid levels will be obtained. Neurochecks will be obtained every 4 hours initially. CBCs, metabolic profiles, magnesium levels and additional radiographic evaluations will be obtained as appropriate. She will receive Ativan 1 mg IV every 4 hours as needed for anxiety or restlessness. To receive morphine sulfate 2 to 4 mg IV every 2 hours as needed for pain using a sliding scale for dosing. She will be given a cardiac diet as tolerated. Oral fluid intake will be encouraged. Her home medications will be resumed, as appropriate, once her medication list has been verified and reconciled. 09/02/2019 Impression 98 5 pulse 78 blood pressure 122/76. Count is still elevated 15,000 sodium 138 potassium 3.5 BUN is 17 creatinine 0.99 Museum low at 1.1 TSH low at 0.24 Chest x-ray is negative Patient has a weeping oozing left upper extremity apparent cellulitis. Have ordered wound cultures and got add vancomycin. Nurse and I expressed some purulent material from her left upper extremity Patient has been getting magnesium replacements Patient is awake alert talking states that her arm started with just a small abrasion, evidently has been scratching and picking at it and it is worsened. UA does appear to be infected. Currently patient does not appear to be septic 09/03/2019 Vancomycin started yesterday evening in addition to ceftriaxone. However this morning leukocytosis still persist without any improvement. Erythema in left upper extremity seems to have improved however still clearly expressing purulence substance on palpation. Continue vancomycin for treatment of complicated left upper extremity cellulitis likely with abscess. Will consult orthopedics for possible incision and drainage. Continue to follow blood cultures. Continue ceftriaxone for treatment of Klebsiella UTI. Sensitivities reviewed. Continue to monitor CBC. - Time Time Spent with patient: Less than 15 minutes
--- NOTE | 2019-09-03 15:18 | PDOC CONSULTATION ---
Consultation Consult Date: 09/03/19 Attending physician:: ANDRE RUSSELL Provider Consulted: CARLOS COLLINS Consult reason:: left arm cellulitis History of Present Illness Admission Date/PCP: 09/01/19 21:37 FABIAN BLISS MD Patient complains of: Left arm swelling History of Present Illness: ANA FELTON is a 78 year old female who was originally made on 09/01/2019 with lethargy, generalized weakness and also was found to have urinary tract infection. Patient also noted to have decreased appetite. Over the past 48 hours she has developed redness and swelling of her left arm which has somewhat improved. Denies significant pain or discomfort of the left arm outside of the swelling. Pain 2/10. Denies numbness or tingling. Past Medical History Cardiac Medical History: Reports: Hyperlipidema, Hypertension - on meds Denies: Coronary Artery Disease, Myocardial Infarction Pulmonary Medical History: Denies: Asthma, Bronchitis, Chronic Obstructive Pulmonary Disease (COPD), Pneumonia EENT Medical History: Denies: Cataracts, Ears - Hearing aids Neurological Medical History: Denies: Hemorrhagic CVA, Ischemic CVA, Seizures Endocrine Medical History: Denies: Diabetes Mellitus Type 1, Diabetes Mellitus Type 2, Hyperthyroidism, Hypothyroidism, Obesity Renal/ Medical History: Reports: Other - Frequent urinary tract infections Denies: Chronic Kidney Disease, Nephrolithiasis Malignancy Medical History: Reports: None GI Medical History: Denies: Cirrhosis, Crohn's Disease, Hepatitis, Ulcerative Colitis Musculoskeltal Medical History: Reports: Arthritis - back, hips Denies: Gout Skin Medical History: Denies: Eczema, Psoriasis Psychiatric Medical History: Denies: Alcohol Dependency, Depression, Substance Abuse, Tobacco Dependency Traumatic Medical History: Reports: None Hematology: Denies: Anemia, Bleeding Tendencies Infectious Medical History: Reports: None Past Surgical History Past Surgical History: Reports: Hysterectomy, Knee Replacement, Orthopedic Surgery - Left knee replacement, left shoulder repair Social History Lives with: Spouse/Significant other Smoking Status: Never Smoker Electronic Cigarette use?: No Frequency of Alcohol Use: None Hx Recreational Drug Use: No Drugs: None Hx Prescription Drug Abuse: No - Advance Directive Resuscitation Status: Full Code Family History Family History: CAD - Aunts, DM - Mother, Hypertension - Father, Malignancy - Brother Parental Family History Reviewed: No Children Family History Reviewed: No Sibling(s) Family History Reviewed.: No Medication/Allergy Home Medications: Lansoprazole 25 mg PO Q6AM 06/30/12 Pregabalin [Lyrica 50 mg Capsule] 75 mg PO BID 06/30/12 Celecoxib [Celebrex 200 mg Capsule] 200 mg PO DAILY 12/29/15 Hydralazine HCl 50 mg PO BID 12/29/15 Hydrochlorothiazide 50 mg PO BID 12/29/15 Irbesartan [Avapro] 300 mg PO QHS 12/29/15 Oxycodone HCl/Acetaminophen [Oxycodone-Acetaminophen 5-325] 1 tab PO QIDP PRN 12/29/15 Sennosides [Natural Laxative] 25 mg PO DAILY 01/26/16 Atenolol [Tenormin] 25 mg PO DAILY 09/03/19 Fish Oil/Dha/Epa [Fish Oil 1,200 mg Fish Oil] 1 tab PO DAILY 09/03/19 Levothyroxine Sodium 0.05 mg PO Q6AM 09/03/19 Allergies/Adverse Reactions: hydromorphone HCl [From Dilaudid] Allergy (Severe, Verified 01/26/16 09:58) too sleepy lisinopril [Lisinopril] Allergy (Severe, Verified 01/26/16 09:58) heart races Review of Systems Constitutional: PRESENT: fatigue, weakness. ABSENT: chills, fever(s), headache(s), weight gain, weight loss Eyes: ABSENT: visual disturbances Ears: ABSENT: hearing changes Cardiovascular: ABSENT: chest pain, dyspnea on exertion, edema, orthropnea, palpitations Respiratory: ABSENT: cough, hemoptysis Gastrointestinal: ABSENT: abdominal pain, constipation, diarrhea, hematemesis, hematochezia, nausea, vomiting Genitourinary: PRESENT: as per HPI, difficulty urinating. ABSENT: dysuria, hematuria Musculoskeletal: PRESENT: as per HPI Integumentary: PRESENT: as per HPI. ABSENT: rash, wounds Neurological: ABSENT: abnormal gait, abnormal speech, confusion, dizziness, focal weakness, syncope Psychiatric: ABSENT: anxiety, depression, homidical ideation, suicidal ideation Endocrine: ABSENT: cold intolerance, heat intolerance, menstrual abnormalities, polydipsia, polyuria Hematologic/Lymphatic: ABSENT: easy bleeding, easy bruising, lymphadenopathy Physical Exam Vital Signs: Temp Pulse Resp BP Pulse Ox 97.3 F 88 16 141/77 H 98 09/03/19 12:06 09/03/19 12:06 09/03/19 12:06 09/03/19 12:06 09/03/19 12:06 Intake & Output 09/02/19 09/03/19 09/04/19 06:59 06:59 06:59 Intake Total 3343 2292 Output Total 500 Balance 2843 2292 Weight 70 kg 70.4 kg General appearance: PRESENT: no acute distress, well-developed, well-nourished Head exam: PRESENT: atraumatic, normocephalic Eye exam: PRESENT: conjunctiva pink, EOMI, PERRLA. ABSENT: scleral icterus Ear exam: PRESENT: normal external ear exam Mouth exam: PRESENT: moist, tongue midline Neck exam: PRESENT: full ROM. ABSENT: carotid bruit, JVD, lymphadenopathy, thyromegaly Respiratory exam: PRESENT: unlabored Cardiovascular exam: PRESENT: RRR. ABSENT: diastolic murmur, rubs, systolic murmur Pulses: PRESENT: normal dorsalis pedis pul, +2 pedal pulses bilateral Vascular exam: PRESENT: normal capillary refill GI/Abdominal exam: PRESENT: normal bowel sounds, soft. ABSENT: distended, guarding, mass, organolmegaly, rebound, tenderness Rectal exam: PRESENT: deferred Musculoskeletal exam: PRESENT: other - Left upper extremity: Erythema noted along the mid humerus extending to the wrist with associated swelling. Superficial skin lesion noted along the dorsal aspect of the midforearm with small skin changes. No expressible purulent drainage. Serosanguineous drainage noted. No palpable fluctuance. Full digit range of motion. CMC arthritis noted along the thumb with mild tenderness to palpation. Neurological exam: PRESENT: alert, awake, oriented to person, oriented to place, oriented to time, oriented to situation, CN II-XII grossly intact. ABSENT: motor sensory deficit Psychiatric exam: PRESENT: appropriate affect, normal mood. ABSENT: homicidal ideation, suicidal ideation Skin exam: PRESENT: dry, intact, warm. ABSENT: cyanosis, rash Results Laboratory Results: 09/03/19 06:55 09/03/19 06:55 09/03/19 09/03/19 09/03/19 06:55 06:55 10:33 WBC 15.7 H RBC 3.66 L Hgb 10.9 L Hct 31.5 L MCV 86 MCH 29.7 MCHC 34.5 RDW 13.3 Plt Count 132 L Seg Neutrophils % 84.3 H Sodium 137.5 Potassium 3.5 L Chloride 102 Carbon Dioxide 29 Anion Gap 7 BUN 10 Creatinine 0.83 Est GFR ( Amer) > 60 Glucose 94 Calcium 8.6 Magnesium 1.9 Free T4 1.75 09/01/19 19:45 Catheterized Urine Urine Culture - Final Klebsiella Pneumoniae Impressions: Chest X-Ray 09/01/19 18:32 IMPRESSION: No acute cardiopulmonary disease. Moderate hiatal hernia. Assessment & Plan - Diagnosis (1) Cellulitis Qualifiers: Site of cellulitis of extremity: upper extremity Laterality: left Is this a current diagnosis for this admission?: Yes Plan: On examination I was unable to express purulent drainage according to nursing staff the drainage has essentially subsided compared to yesterday and her erythema is also improved which is noted on demarcation of the extremity. Patient has no pain with wrist or elbow range of motion. Given these findings I feel this is likely underlying cellulitis and deep abscess is less likely diagnosis however there shortly the possibility that it does progress in the future at this point I have recommended clinical monitoring if symptoms worsen would suggest more advanced imaging. In the meantime we will obtain radiographs to confirm no evidence of osseous abnormality.
--- NOTE | 2019-09-03 16:00 | RADIOLOGY REPORT (SQ) ---
EXAM DESCRIPTION: FOREARM LEFT COMPLETED DATE/TIME: 09/03/2019 3:51 pm REASON FOR STUDY: arm swelling COMPARISON: None. NUMBER OF VIEWS: Two views. TECHNIQUE: Two radiographic images acquired of the left forearm, including elbow and wrist in at [address] one projection. LIMITATIONS: None. FINDINGS: MINERALIZATION: Normal. BONES: No acute fracture. No worrisome bone lesions. SOFT TISSUES: Soft tissue swelling the proximal forearm. 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 IMPRESSION: No fracture. Soft tissue swelling. Degenerative joint disease. TECHNICAL DOCUMENTATION: JOB ID: [id number] 2010 [employer]- All Rights Reserved Reading location - IP/workstation name: [email or web address]
[2019-09-03] MEDS: VANCOMYCIN HCL 1,000 MG in DEXTROSE 5%-WATER 250 ML IV SCH (18:05)
[2019-09-03] MEDS: ATENOLOL 50 MG TABLET PO SCH (21:12)
[2019-09-03] MEDS: HYDROCHLOROTHIAZIDE 25 MG TABLET PO SCH (21:33)
[2019-09-03] MEDS: PREGABALIN 75 MG CAPSULE PO SCH (21:33)
[2019-09-03] MEDS: HYDRALAZINE HCL 50 MG TABLET PO SCH (21:33)
[2019-09-03] MEDS: CEFTRIAXONE 1 GM/D5W RTU 1 GM/50 ML RTUPB IV SCH (21:34)
[2019-09-03] MEDS ORDERED: PREGABALIN 50 MG CAPSULE PO SCH (22:00)
[2019-09-04] MEDS: HEPARIN SOD (PORCINE) 5,000 UNIT/ML 1 ML VIAL SUBCUT SCH ×3 (05:51→21:16)
[2019-09-04 05:56] LABS: HEMATOCRIT 29.7 % (36.0-47.0); HEMOGLOBIN 10.2 g/dL (12.0-15.5); MEAN CORPUSCULAR HEMOGLOBIN 29.6 pg (27.0-33.4); MEAN CORPUSCULAR HGB CONC 34.3 g/dL (32.0-36.0); MEAN CORPUSCULAR VOLUME 86 fl (80-97); PLATELET COUNT 156 10^3/uL (150-450); RED BLOOD COUNT 3.44 10^6/uL (3.72-5.28); RED CELL DISTRIBUTION WIDTH 13.1 % (11.5-14.0); WHITE BLOOD COUNT 12.5 10^3/uL (4.0-10.5)
[2019-09-04] MEDS ORDERED: LEVOTHYROXINE SODIUM 0.025 MG TABLET PO SCH (06:00)
[2019-09-04] MEDS: PANTOPRAZOLE SODIUM 40 MG TABLET.DR PO SCH (07:00)
[2019-09-04] MEDS: LEVOTHYROXINE SODIUM 0.05 MG TABLET PO SCH (07:00)
[2019-09-04] MEDS: DOCUSATE SODIUM 100 MG CAPSULE PO SCH ×2 (10:09→17:27)
[2019-09-04] MEDS: HYDROCHLOROTHIAZIDE 25 MG TABLET PO SCH ×2 (10:09→21:17)
[2019-09-04] MEDS: ATENOLOL 50 MG TABLET PO SCH (10:10)
[2019-09-04] MEDS: PREGABALIN 75 MG CAPSULE PO SCH ×2 (10:10→21:17)
[2019-09-04] MEDS: HYDRALAZINE HCL 50 MG TABLET PO SCH ×2 (10:10→21:16)
[2019-09-04] MEDS: NEOMY SULF/POLYMYX B SULF/HC OTIC SUSP 10 ML AS SCH ×3 (10:13→17:27)
--- NOTE | 2019-09-04 14:06 | PDOC PROGRESS REPORT ---
Subjective Progress Note for:: 09/04/19 Subjective:: Patient was a little confused this morning as she thought she was going home. States that she had thought that somebody had mentioned that to her but may be she might have been dreaming. After discussion patient understand necessity of staying for more IV antibiotics. She denies any pain at this time. Denies fevers. Reason For Visit: UTI,SIRS,RAMANA Physical Exam Vital Signs: Temp Pulse Resp BP Pulse Ox 98.1 F 62 15 107/58 L 98 09/04/19 11:23 09/04/19 11:23 09/04/19 11:23 09/04/19 11:23 09/04/19 11:23 Intake & Output 09/03/19 09/04/19 09/05/19 06:59 06:59 06:59 Intake Total 2292 1018 Balance 2292 1018 Weight 70.4 kg 70.4 kg General appearance: PRESENT: no acute distress, cooperative Neck exam: ABSENT: JVD Extremities exam: PRESENT: other - Improvement of left arm erythema Neurological exam: PRESENT: alert, awake, oriented to person, oriented to place, oriented to time Results Laboratory Results: 09/04/19 04:54 09/03/19 06:55 09/04/19 04:54 WBC 12.5 H RBC 3.44 L Hgb 10.2 L Hct 29.7 L MCV 86 MCH 29.6 MCHC 34.3 RDW 13.1 Plt Count 156 09/02/19 13:10 Arm - Forearm Gram Stain - Final 09/02/19 13:10 Arm - Forearm Wound Culture - Final Mrsa (Meth Resis Staph Aureus) Impressions: Chest X-Ray 09/01/19 18:32 IMPRESSION: No acute cardiopulmonary disease. Moderate hiatal hernia. Forearm X-Ray 09/03/19 00:00 IMPRESSION: No fracture. Soft tissue swelling. Degenerative joint disease. Assessment and Plan - Diagnosis (1) Abscess of left upper extremity Is this a current diagnosis for this admission?: Yes (2) Cellulitis Qualifiers: Site of cellulitis of extremity: upper extremity Laterality: left Is this a current diagnosis for this admission?: Yes (3) UTI due to Klebsiella species Is this a current diagnosis for this admission?: Yes (4) Hypo-magnesium Is this a current diagnosis for this admission?: Yes - Plan Summary Summary: Patient is admitted to the medical floor where she received routine supportive and symptomatic cares. She will be treated with IV antibiotics utilizing Rocephin 1 g daily. She will receive IV fluids using D5 LR at 167 mL/h x 12 hours. Serial lactic acid levels will be obtained. Neurochecks will be obtained every 4 hours initially. CBCs, metabolic profiles, magnesium levels and additional radiographic evaluations will be obtained as appropriate. She will receive Ativan 1 mg IV every 4 hours as needed for anxiety or restlessness. To receive morphine sulfate 2 to 4 mg IV every 2 hours as needed for pain using a sliding scale for dosing. She will be given a cardiac diet as tolerated. Oral fluid intake will be encouraged. Her home medications will be resumed, as appropriate, once her medication list has been verified and reconciled. 09/02/2019 Impression 98 5 pulse 78 blood pressure 122/76. Count is still elevated 15,000 sodium 138 potassium 3.5 BUN is 17 creatinine 0.99 Museum low at 1.1 TSH low at 0.24 Chest x-ray is negative Patient has a weeping oozing left upper extremity apparent cellulitis. Have ordered wound cultures and got add vancomycin. Nurse and I expressed some purulent material from her left upper extremity Patient has been getting magnesium replacements Patient is awake alert talking states that her arm started with just a small ab rasion, evidently has been scratching and picking at it and it is worsened. UA does appear to be infected. Currently patient does not appear to be septic 09/03/2019 Vancomycin started yesterday evening in addition to ceftriaxone. However this morning leukocytosis still persist without any improvement. Erythema in left upper extremity seems to have improved however still clearly expressing purulence substance on palpation. Continue vancomycin for treatment of complicated left upper extremity cellulitis likely with abscess. Will consult orthopedics for possible incision and drainage. Continue to follow blood cultures. Continue ceftriaxone for treatment of Klebsiella UTI. Sensitivities reviewed. Continue to monitor CBC. 09/04/2019 Continue vancomycin and ceftriaxone. Vancomycin for MRSA coverage for complicated cellulitis and ceftriaxone for UTI. Evaluated by orthopedics and patient does not need I&D. Blood cultures remain negative. Leukocytosis improving. We will continue to monitor CBC. - Time Time Spent with patient: Less than 15 minutes - Inpatient Certification Medical Necessity: Need for IV Antibiotics
[2019-09-04] MEDS: VANCOMYCIN HCL 1,000 MG in DEXTROSE 5%-WATER 250 ML IV SCH (17:27)
[2019-09-04] MEDS: CEFTRIAXONE 1 GM/D5W RTU 1 GM/50 ML RTUPB IV SCH (21:17)
[2019-09-05] MEDS: HEPARIN SOD (PORCINE) 5,000 UNIT/ML 1 ML VIAL SUBCUT SCH ×2 (05:14→13:07)
[2019-09-05] MEDS: ACETAMINOPHEN 325 MG TABLET PO PRN (05:16)
[2019-09-05] MEDS: LEVOTHYROXINE SODIUM 0.05 MG TABLET PO SCH (05:16)
[2019-09-05] MEDS: PANTOPRAZOLE SODIUM 40 MG TABLET.DR PO SCH (05:17)
[2019-09-05 05:34] LABS: HEMATOCRIT 30.3 % (36.0-47.0); HEMOGLOBIN 10.3 g/dL (12.0-15.5); MEAN CORPUSCULAR HEMOGLOBIN 29.6 pg (27.0-33.4); MEAN CORPUSCULAR HGB CONC 34.1 g/dL (32.0-36.0); MEAN CORPUSCULAR VOLUME 87 fl (80-97); PLATELET COUNT 164 10^3/uL (150-450); RED BLOOD COUNT 3.49 10^6/uL (3.72-5.28); RED CELL DISTRIBUTION WIDTH 13.2 % (11.5-14.0); WHITE BLOOD COUNT 8.4 10^3/uL (4.0-10.5)
[2019-09-05] MEDS: PREGABALIN 75 MG CAPSULE PO SCH (10:02)
[2019-09-05] MEDS: HYDROCHLOROTHIAZIDE 25 MG TABLET PO SCH (10:02)
[2019-09-05] MEDS: HYDRALAZINE HCL 50 MG TABLET PO SCH (10:02)
[2019-09-05] MEDS: ATENOLOL 50 MG TABLET PO SCH (10:02)
[2019-09-05] MEDS: NEOMY SULF/POLYMYX B SULF/HC OTIC SUSP 10 ML AS SCH ×2 (10:02→13:42)
[2019-09-05] MEDS: DOCUSATE SODIUM 100 MG CAPSULE PO SCH (10:03)
[2019-09-05 12:35] VITALS: BP 131/54
--- NOTE | 2019-09-05 15:32 | PDOC DISCHARGE SUMMARY ---
Impression - Admit/DC Date/PCP Admission Date/Primary Care Provider: 09/01/19 21:37 FABIAN BLISS MD Discharge Date: 09/05/19 - Discharge Diagnosis (1) Abscess of left upper extremity Is this a current diagnosis for this admission?: Yes (2) Cellulitis Is this a current diagnosis for this admission?: Yes (3) UTI due to Klebsiella species Is this a current diagnosis for this admission?: Yes (4) Hypo-magnesium Is this a current diagnosis for this admission?: Yes - Assessment Summary: Patient is admitted to the medical floor where she received routine supportive and symptomatic cares. She will be treated with IV antibiotics utilizing Alvaro ephin 1 g daily. She will receive IV fluids using D5 LR at 167 mL/h x 12 hours. Serial lactic acid levels will be obtained. Neurochecks will be obtained every 4 hours initially. CBCs, metabolic profiles, magnesium levels and additional radiographic evaluations will be obtained as appropriate. She will receive Ativan 1 mg IV every 4 hours as needed for anxiety or restlessness. To receive morphine sulfate 2 to 4 mg IV every 2 hours as needed for pain using a sliding scale for dosing. She will be given a cardiac diet as tolerated. Oral fluid intake will be encouraged. Her home medications will be resumed, as appropriate, once her medication list has been verified and reconciled. 09/02/2019 Impression 98 5 pulse 78 blood pressure 122/76. Count is still elevated 15,000 sodium 138 potassium 3.5 BUN is 17 creatinine 0.99 Museum low at 1.1 TSH low at 0.24 Chest x-ray is negative Patient has a weeping oozing left upper extremity apparent cellulitis. Have ordered wound cultures and got add vancomycin. Nurse and I expressed some purulent material from her left upper extremity Patient has been getting magnesium replacements Patient is awake alert talking states that her arm started with just a small abrasion, evidently has been scratching and picking at it and it is worsened. UA does appear to be infected. Currently patient does not appear to be septic 09/03/2019 Vancomycin started yesterday evening in addition to ceftriaxone. However this morning leukocytosis still persist without any improvement. Erythema in left upper extremity seems to have improved however still clearly expressing purulence substance on palpation. Continue vancomycin for treatment of complicated left upper extremity cellulitis likely with abscess. Will consult orthopedics for possible incision and drainage. Continue to follow blood cultures. Continue ceftriaxone for treatment of Klebsiella UTI. Sensitivities reviewed. Continue to monitor CBC. 09/04/2019 Continue vancomycin and ceftriaxone. Vancomycin for MRSA coverage for complicated cellulitis and ceftriaxone for UTI. Evaluated by orthopedics and patient does not need I&D. Blood cultures remain negative. Leukocytosis improving. We will continue to monitor CBC. - Additional Information Resuscitation Status: Full Code Discharge Diet: As Tolerated Discharge Activity: Activity As Tolerated Referrals: FABIAN BLISS MD [Primary Care Provider] - 09/12/19 2:15 pm CARLOS COLLINS DO [ACTIVE STAFF] - 09/13/19 9:00 am Prescriptions: Amoxicillin/Potassium Clav [Augmentin 875-125 Tablet] 1 tab PO Q12 5 Days tablet Doxycycline Monohydrate 100 mg PO Q12 10 Days tablet Home Medications: Lansoprazole 25 mg PO Q6AM 06/30/12 Pregabalin [Lyrica 50 mg Capsule] 75 mg PO BID 06/30/12 Celecoxib [Celebrex 200 mg Capsule] 200 mg PO DAILY 12/29/15 Hydralazine HCl 50 mg PO BID 12/29/15 Hydrochlorothiazide 50 mg PO BID 12/29/15 Irbesartan [Avapro] 300 mg PO QHS 12/29/15 Oxycodone HCl/Acetaminophen [Oxycodone-Acetaminophen 5-325] 1 tab PO QIDP PRN 12/29/15 Sennosides [Natural Laxative] 25 mg PO DAILY 01/26/16 Atenolol [Tenormin] 25 mg PO DAILY 09/03/19 Fish Oil/Dha/Epa [Fish Oil 1,200 mg Fish Oil] 1 tab PO DAILY 09/03/19 Levothyroxine Sodium 0.05 mg PO Q6AM 09/03/19 Amoxicillin/Potassium Clav [Augmentin 875-125 Tablet] 1 tab PO Q12 5 Days tablet 09/05/19 Doxycycline Monohydrate 100 mg PO Q12 10 Days tablet 09/05/19 History of Present Illiness History of Present Illness: According to admitting provider: ANA FELTON is a 78 year old female who presented to the emergency room via EMS from home with a 3-day history of generalized weakness. Patient is mildly lethargic but admits that she has experienced progressive generalized weakness over the last 3 days becoming severe today, when she could no longer get out of her chair at home. Her weakness has been accompanied by a decrease in appetite and an increase in lethargy/somnolence. Her weakness has been associated with foul-smelling urine. She denies any other accompanying or associated signs and symptoms. She admits that she has experienced numerous prior episodes in the past with urinary tract infections often resulting in sepsis. She has not identified any aggravating or ameliorating factors for her generalized weakness. EMS documented a fever of 100.4 F upon their arrival at the scene. In the emergency room the patient has been afebrile, however she was noted to have an elevated white blood count at 16.5 and urinalysis significant for pyuria and a positive nitrite. The patient was treated with empiric antibiotics in the emergency room and subsequently admitted to the hospital for further evaluation and treatment. Hospital Course Hospital Course: Patient was admitted to the hospital for treatment of cellulitis in the left arm which was extending from just above her left wrist to her left upper arm. She was also diagnosed with a urinary tract infection. Urine cultures grew K lebsiella. She was treated with ceftriaxone for the UTI. Blood culture was negative. Ergas the patient cellulitis, patient was noted to have complicated cellulitis with purulence. Orthopedics was consulted for evaluation of patient for possible I&D but deemed that patient did not require I&D. Treatment was continued with vancomycin IV. Culture has obtained from wound was not a deep tissue culture was read as superficial but did however grow MRSA. Given purulent cellulitis, patient was discharged with doxycycline and Augmentin to complete duration of antibiotic treatment. Physical Exam Vital Signs: Temp Pulse Resp BP Pulse Ox 98.4 F 50 L 16 131/54 H 94 09/05/19 12:32 09/05/19 12:32 09/05/19 12:32 09/05/19 12:32 09/05/19 12:32 Intake & Output 09/04/19 09/05/19 09/06/19 06:59 06:59 06:59 Intake Total 1018 780 863 Balance 1018 780 620 Weight 70.4 kg 71.5 kg General appearance: PRESENT: no acute distress, cooperative Neurological exam: PRESENT: alert, awake Results Laboratory Results: WBC 8.4 10^3/uL (4.0-10.5) 09/05/19 04:45 RBC 3.49 10^6/uL (3.72-5.28) L 09/05/19 04:45 Hgb 10.3 g/dL (12.0-15.5) L 09/05/19 04:45 Hct 30.3 % (36.0-47.0) L 09/05/19 04:45 MCV 87 fl (80-97) 09/05/19 04:45 MCH 29.6 pg (27.0-33.4) 09/05/19 04:45 MCHC 34.1 g/dL (32.0-36.0) 09/05/19 04:45 RDW 13.2 % (11.5-14.0) 09/05/19 04:45 Plt Count 164 10^3/uL (150-450) 09/05/19 04:45 Lymph % (Auto) 9.7 % (13-45) L 09/03/19 06:55 [place] % (Auto) 4.9 % (3-13) 09/03/19 06:55 Eos % (Auto) 0.3 % (0-6) 09/03/19 06:55 Baso % (Auto) 0.8 % (0-2) 09/03/19 06:55 Absolute Neuts (auto) 13.3 10^3/uL (1.7-8.2) H 09/03/19 06:55 Absolute Lymphs (auto) 1.5 10^3/uL (0.5-4.7) 09/03/19 06:55 Absolute Monos (auto) 0.8 10^3/uL (0.1-1.4) 09/03/19 06:55 Absolute Eos (auto) 0.1 10^3/uL (0.0-0.6) 09/03/19 06:55 Absolute Basos (auto) 0.1 10^3/uL (0.0-0.2) 09/03/19 06:55 Total Counted 100 09/01/19 18:44 Seg Neutrophils % 84.3 % (42-78) H 09/03/19 06:55 Seg Neuts % (Manual) 90 % (42-78) H 09/01/19 18:44 Band Neutrophils % 2 % (3-5) L 09/01/19 18:44 Lymphocytes % (Manual) 3 % (13-45) L 09/01/19 18:44 Atypical Lymphs % 1 % (0) 09/01/19 18:44 Monocytes % (Manual) 4 % (3-13) 09/01/19 18:44 Eosinophils % (Manual) 0 % (0-6) 09/01/19 18:44 Basophils % (Manual) 0 % (0-2) 09/01/19 18:44 Abs Neuts (Manual) 15.2 10^3/uL (1.7-8.2) H 09/01/19 18:44 Abs Lymphs (Manual) 0.7 10^3/uL (0.5-4.7) 09/01/19 18:44 Abs Monocytes (Manual) 0.7 10^3/uL (0.1-1.4) 09/01/19 18:44 Absolute Eos (Manual) 0.0 10^3/uL (0.0-0.6) 09/01/19 18:44 Abs Basophils (Manual) 0.0 10^3/uL (0.0-0.2) 09/01/19 18:44 Toxic Granulation SLIGHT 09/01/19 18:44 Platelet Comment ADEQUATE 09/01/19 18:44 PT 12.9 SEC (11.4-15.4) 09/01/19 18:44 INR 0.97 09/01/19 18:44 VBG pH 7.42 (7.30-7.42) 09/01/19 18:44 VBG pCO2 51.1 mmHg (35-63) 09/01/19 18:44 VBG HCO3 32.1 mmol/L (20-32) H 09/01/19 18:44 VBG Base Excess 6.2 mmol/L 09/01/19 18:44 Sodium 137.5 mmol/L (137-145) 09/03/19 06:55 Potassium 3.5 mmol/L (3.6-5.0) L 09/03/19 06:55 Chloride 102 mmol/L (98-107) 09/03/19 06:55 Carbon Dioxide 29 mmol/L (22-30) 09/03/19 06:55 Anion Gap 7 (5-19) 09/03/19 06:55 BUN 10 mg/dL (7-20) 09/03/19 06:55 Creatinine 0.83 mg/dL (0.52-1.25) 09/03/19 06:55 Est GFR ( Amer) > 60 (>60) 09/03/19 06:55 Est GFR (MDRD) Non-Af > 60 (>60) 09/03/19 06:55 Glucose 94 mg/dL (75-110) 09/03/19 06:55 POC Glucose 133 mg/dL (70-110) H 09/01/19 19:19 Lactic Acid 2.1 mmol/L (0.7-2.1) 09/02/19 10:52 Calcium 8.6 mg/dL (8.4-10.2) 09/03/19 06:55 Magnesium 1.9 mg/dL (1.6-2.3) 09/03/19 06:55 Total Bilirubin 1.0 mg/dL (0.2-1.3) 09/01/19 18:44 Direct Bilirubin 0.1 mg/dL (0.0-0.4) 09/01/19 18:44 Neonat Total Bilirubin Not Reportable 09/01/19 18:44 Neonat Direct Bilirubin Not Reportable 09/01/19 18:44 Neonat Indirect Bili Not Reportable 09/01/19 18:44 AST 22 U/L (14-36) 09/01/19 18:44 ALT 13 U/L (<35) 09/01/19 18:44 Alkaline Phosphatase 74 U/L (38-126) 09/01/19 18:44 Total Protein 7.1 g/dL (6.3-8.2) 09/01/19 18:44 Albumin 4.2 g/dL (3.5-5.0) 09/01/19 18:44 TSH 0.24 uIU/mL (0.47-4.68) L 09/02/19 05:37 Free T4 1.75 ng/dL (0.78-2.19) 09/03/19 10:33 Free T3 pg/mL 2.70 pg/mL (2.77-5.27) L 09/02/19 05:37 Urine Color YELLOW 09/01/19 19:45 Urine Appearance SLIGHTLY-CLOUDY 09/01/19 19:45 Urine pH 5.0 (5.0-9.0) 09/01/19 19:45 Ur Specific [place] 1.008 09/01/19 19:45 Urine Protein NEGATIVE mg/dL (NEGATIVE) 09/01/19 19:45 Urine Glucose (UA) NEGATIVE mg/dL (NEGATIVE) 09/01/19 19:45 Urine Ketones NEGATIVE mg/dL (NEGATIVE) 09/01/19 19:45 Urine Blood NEGATIVE (NEGATIVE) 09/01/19 19:45 Urine Nitrite (Reflex) POSITIVE (NEGATIVE) H 09/01/19 19:45 Urine Bilirubin NEGATIVE (NEGATIVE) 09/01/19 19:45 Urine Urobilinogen NEGATIVE mg/dL (<2.0) 09/01/19 19:45 Leukocyte Esterase Rfl MODERATE (NEGATIVE) H 09/01/19 19:45 Urine RBC (Auto) 0 /HPF 09/01/19 19:45 U Hyaline Cast (Auto) 5 /LPF 09/01/19 19:45 Urine Bacteria (Auto) TRACE /HPF 09/01/19 19:45 Urine WBC (Reflex) 58 /HPF 09/01/19 19:45 Urine Mucus (Auto) RARE /LPF 09/01/19 19:45 Urine Ascorbic Acid NEGATIVE (NEGATIVE) 09/01/19 19:45 Impressions: Chest X-Ray 09/01/19 18:32 IMPRESSION: No acute cardiopulmonary disease. Moderate hiatal hernia. Forearm X-Ray 09/03/19 00:00 IMPRESSION: No fracture. Soft tissue swelling. Degenerative joint disease. Plan Time Spent: Less than 30 Minutes Stroke Is this a Stroke Patient?: No Acute Heart Failure - Is this a Heart Failure Patient?: No
== END 2019-09-05 14:34 | disposition home or self-care (01) | DRG 603 ==
LOC: EDBD → ER 18:10 → EH 21:37 → 3W 23:51 → 4N 09-03 15:54
PROVIDERS: ADMIT Emergency Medicine; ATTEND Internal Medicine
DX: L03.114 Cellulitis of left upper limb (principal); N39.0 Urinary tract infection, site not specified; N17.9 Acute kidney failure, unspecified; L02.414 Cutaneous abscess of left upper limb; E83.42 Hypomagnesemia; B95.62 Methicillin resistant Staphylococcus aureus infection as the cause of diseases classified elsewhere; I12.9 Hypertensive chronic kidney disease with stage 1 through stage 4 chronic kidney disease, or unspecified chronic kidney disease; N18.3 Chronic kidney disease, stage 3 (moderate); E03.9 Hypothyroidism, unspecified; M54.5 Low back pain; Z96.652 Presence of left artificial knee joint; B96.1 Klebsiella pneumoniae [K. pneumoniae] as the cause of diseases classified elsewhere; G89.29 Other chronic pain; D72.829 Elevated white blood cell count, unspecified; E78.5 Hyperlipidemia, unspecified; Z87.440 Personal history of urinary (tract) infections; Z88.5 Allergy status to narcotic agent; Z79.899 Other long term (current) drug therapy; Z88.8 Allergy status to other drugs, medicaments and biological substances
CPT/HCPCS: 36415; 51701; 71045; 80048; 80053; 81001; 82803; 82962; 83605; 83735; 84439; 84443; 84481; 85025; 85027; 85610; 87040; 87070; 87077; 87086; 87088; 87186; 87205; 93005; 93010; 96361; 96365; 99285; J0696; J1644; J2060; J2270; J2405; J2543; J3370; J3475; J3490; J7030; J7060; J7121

== ENCOUNTER → 2019-09-13 | Outpatient (CLI) | payer MEDICARE, BC ==
[2019-09-13 08:44] LABS: ANION GAP 11 (5-19); BLOOD UREA NITROGEN 18 mg/dL (7-20); CALCIUM 8.9 mg/dL (8.4-10.2); CARBON DIOXIDE 31 mmol/L (22-30); CHLORIDE 97 mmol/L (98-107); CHOLESTEROL 150.42 mg/dL (0-200); GLUCOSE 94 mg/dL (75-110); POTASSIUM 4.1 mmol/L (3.6-5.0); TRIGLYCERIDES 156 mg/dL (<150)
[2019-09-13 08:55] LABS: DIRECT LDL 101 mg/dL (<100)
[2019-09-13 08:58] LABS: VLDL CHOLESTEROL 31.2 mg/dL (10-31)
== END ==
LOC: OD 07:26
PROVIDERS: ATTEND Family Medicine
DX: E03.9 Hypothyroidism, unspecified (principal); E78.5 Hyperlipidemia, unspecified; I10 Essential (primary) hypertension; Z79.899 Other long term (current) drug therapy
CPT/HCPCS: 36415; 80048; 80061; 83036; 84443

== ENCOUNTER 2020-01-30 17:36 | Observation (INO) | payer MEDICARE, BC ==
[2020-01-30 18:59] LABS: ABSOLUTE BASOPHILS # (AUTO) 0.1 10^3/uL (0.0-0.2); ABSOLUTE EOSINOPHILS # (AUTO) 0.1 10^3/uL (0.0-0.6); ABSOLUTE LYMPHOCYTES (AUTO) 2.5 10^3/uL (0.5-4.7); ABSOLUTE MONOCYTES (AUTO) 0.5 10^3/uL (0.1-1.4); ABSOLUTE NEUT (AUTO) 4.6 10^3/uL (1.7-8.2); BASOPHILS % (AUTO) 0.7 % (0-2); EOSINOPHILS % (AUTO) 1.8 % (0-6); HEMATOCRIT 41.3 % (36.0-47.0); HEMOGLOBIN 13.8 g/dL (12.0-15.5); LYMPHOCYTES % (AUTO) 31.8 % (13-45); MEAN CORPUSCULAR HEMOGLOBIN 28.9 pg (27.0-33.4); MEAN CORPUSCULAR HGB CONC 33.4 g/dL (32.0-36.0); MEAN CORPUSCULAR VOLUME 87 fl (80-97); MONOCYTES % (AUTO) 6.5 % (3-13); PLATELET COUNT 214 10^3/uL (150-450); RED BLOOD COUNT 4.76 10^6/uL (3.72-5.28); RED CELL DISTRIBUTION WIDTH 14.8 % (11.5-14.0); SEGMENTED NEUTROPHILS % (AUTO) 59.2 % (42-78); TOTAL CELLS COUNTED % (AUTO) 100 %; WHITE BLOOD COUNT 7.8 10^3/uL (4.0-10.5)
[2020-01-30 19:17] LABS: ALBUMIN 4.2 g/dL (3.5-5.0); ALKALINE PHOSPHATASE 81 U/L (38-126); ANION GAP 12 (5-19); ASPARTATE AMINO TRANSFERASE 24 U/L (14-36); BILIRUBIN,DIRECT 0.4 mg/dL (0.0-0.4); BILIRUBIN,TOTAL 0.5 mg/dL (0.2-1.3); BLOOD UREA NITROGEN 40 mg/dL (7-20); CALCIUM 9.6 mg/dL (8.4-10.2); CARBON DIOXIDE 27 mmol/L (22-30); CHLORIDE 98 mmol/L (98-107); GLUCOSE 97 mg/dL (75-110); POTASSIUM 4.8 mmol/L (3.6-5.0); TOTAL PROTEIN 7.1 g/dL (6.3-8.2)
[2020-01-30] MEDS ORDERED: NORMAL SALINE 1000 ML 1,000 ML IV ONE (19:31)
--- NOTE | 2020-01-30 19:43 | ER Document Report ---
ED General - General Chief Complaint: Low Blood Pressure Stated Complaint: PAINFUL URINATION Time Seen by Provider: 01/30/20 18:14 Primary Care Provider: FABIAN BLISS MD [Primary Care Provider] - Follow up as needed TRAVEL OUTSIDE OF THE [place] IN LAST 30 DAYS: No - HPI Notes: Patient is an 79-year-old female with a past medical history of chronic pain who presents with low blood pressure. States that she measured her blood pressure low at home today. She is unsure of what it was. Patient reports she went to her pain management appointment. There, her blood pressure was low and they called EMS. Patient said that she became very lightheaded the past several days. She states that she was presyncopal and her caught her and lowered her to the ground. States that her left hip hurts but her hip was not injured during the fall. Patient denies any chest pain or shortness of breath. She does mention dysuria for the past several days. She had a urinalysis done outpatient and states that it was positive. She does not think she is on any antibiotics right now. - Related Data Allergies/Adverse Reactions: hydromorphone HCl [From Dilaudid] Allergy (Severe, Verified 01/26/16 09:58) too sleepy lisinopril [Lisinopril] Allergy (Severe, Verified 01/26/16 09:58) heart races Home Medications: Lyrica, [place], Atenolol, Celebrex, Hydralazine, HCTZ, Levothyroxine, Lorazepam, Voltaren, Zyrtec, Quinine, Lansoprazole Past Medical History - Social History Smoking Status: Never Smoker Family History: CAD - Aunts, DM - Mother, Hypertension - Father, Malignancy - Brother - Past Medical History Cardiac Medical History: Reports: Hx Hypercholesterolemia, Hx Hypertension - on meds Denies: Hx Coronary Artery Disease, Hx Heart Attack Pulmonary Medical History: Denies: Hx Asthma, Hx Bronchitis, Hx COPD, Hx Pneumonia Neurological Medical History: Denies: Hx Cerebrovascular Accident, Hx Seizures Endocrine Medical History: Denies: Hx Diabetes Mellitus Type 1, Hx Diabetes Mellitus Type 2, Hx Hyperthyroidism, Hx Hypothyroidism GI Medical History: Denies: Hx Cirrhosis, Hx Crohn's Disease, Hx Hepatitis, Hx Ulcerative Colitis Musculoskeletal Medical History: Reports Hx Arthritis - back, hips, Denies Hx Gout Skin Medical History: Denies Hx Eczema, Denies Hx Psoriasis Psychiatric Medical History: Denies: Hx Depression Infectious Medical History: Denies: Hx Hepatitis Past Surgical History: Reports: Hx Genitourinary Surgery - bladder sling, Hx Hysterectomy, Hx Orthopedic Surgery - Left knee replacement, left shoulder repair - Immunizations Hx Diphtheria, Pertussis, Tetanus Vaccination: Yes Hx Pneumococcal Vaccination: 04/17/13 Review of Systems - Review of Systems Notes: CONSTITUTIONAL: No fever, fatigue or weight loss. SKIN: No rash. HENT: No congestion, ear pain, or sore throat. EYES: No recent vision problems or eye pain. ENDOCRINE: No polyuria or polydipsia. CARDIOVASCULAR: No chest pain or edema. RESPIRATORY: No cough, shortness of breath, congestion, or wheezing. GASTROINTESTINAL: No abdominal pain, nausea, vomiting, bloody stools or diarrhea. GENITOURINARY: Positive for dysuria. MUSCULOSKELETAL: No joint pain or swelling. Pain to left hip. LYMPHATIC: No swollen glands. NEUROLOGIC: No seizures. No headache, focal weakness or sensory changes. HEMATOLOGIC: No unusual bruising or bleeding. PSYCHIATRIC: No depression or anxiety. Physical Exam - Vital signs Vitals: Temp 97.8 F 01/30/20 18:11 - General General appearance: Appears well Notes: VITAL SIGNS: Within normal limits. GENERAL: No acute distress, non-toxic appearance. HEAD: Normal with no signs of head trauma. EYES: EOMI, conjunctiva normal, no discharge. EARS: Hearing grossly intact. NOSE: Normal. THROAT: Oropharynx is normal. NECK: Normal range of motion, no tenderness, supple, no lymphadenopathy, No adenopathy, no JVD. CHEST: Clear breath sounds bilaterally. No wheezes, rales, or rhonchi. CARDIAC: Regular rate and rhythm. S1 and S2, without murmurs, gallops, or rubs. VASCULAR: No Edema. Peripheral pulses normal and equal in all extremities. ABDOMEN: Normal and soft with no tenderness, no masses or pulsatile masses. GENITOURINARY: Normal, No tenderness LYMPATHTIC: No lymphadenopathy noted. MUSCULOSKELETAL: No ecchymosis to left hip. Left leg is not shortened. Range of motion is intact. NEUROLOGICAL: Alert and oriented x 3. No focal sensory or strength deficits. Speech normal. Follows commands appropriately. PSYCHIATRIC: Normal Affect, judgement and mood. SKIN: Normal appearance with no rashes or lesions. Course - Re-evaluation Re-evalutation: 01/30/20 20:39 Patient was given a fluid bolus. I did obtain x-rays of the hip as she mentioned it hurt. I do not suspect a hip fracture. We will obtain urinalysis and evaluate. Son is in the room. He provides more of a history. Son states that her was helping her go to the bathroom from her chair when she lightly fell onto her left hip. Patient states that it was a very light fall. Complaining of left hip pain and low back pain. Did ambulate her but patient was very weak. She was able to stand but became shaky and was unable to walk. I am concerned that the UTI is causing her weakness. I discussed with the hospitalist for admission. Given Rocephin. 01/31/20 01:34 01/31/20 01:36 - Vital Signs Vital signs: Temp Pulse Resp BP Pulse Ox 97.8 F 62 18 126/85 H 97 01/30/20 23:30 01/30/20 18:29 01/31/20 00:00 01/31/20 00:00 01/31/20 00:00 - Laboratory Result Diagrams: 01/30/20 18:26 01/30/20 18:26 Laboratory results interpreted by me: 01/30/20 01/30/20 01/30/20 18:26 18:26 21:25 RDW 14.8 H BUN 40 H Creatinine 1.34 H Est GFR ( Amer) 46 L Est GFR (MDRD) Non-Af 38 L Urine Nitrite POSITIVE H Ur Leukocyte Esterase MODERATE H Discharge - Discharge Clinical Impression: Weakness Urinary tract infection Qualifiers: Urinary tract infection type: site unspecified Hematuria presence: without hematuria Qualified Code(s): N39.0 - Urinary tract infection, site not specified Hypotension Qualifiers: Hypotension type: unspecified hypotension type Qualified Code(s): I95.9 - Hypotension, unspecified Disposition: ADMITTED OBSERVATION Admitting Provider: Waldo (Hospitalist) Unit Admitted: Medical Floor Referrals: FABIAN BLISS MD [Primary Care Provider] - Follow up as needed
--- NOTE | 2020-01-30 19:49 | RADIOLOGY REPORT (SQ) ---
EXAM DESCRIPTION: HIP LEFT AP/LATERAL IMAGES COMPLETED DATE/TIME: 01/30/2020 7:24 pm REASON FOR STUDY: hip pain, fall COMPARISON: 05/07/2018 NUMBER OF VIEWS: Two views. TECHNIQUE: AP and frog-leg view of the left hip. LIMITATIONS: None. FINDINGS: MINERALIZATION: Osteopenia. LEFT HIP: No fracture or dislocation. No worrisome bone lesions. OPPOSITE HIP: No fracture or dislocation. No worrisome bone lesions. SOFT TISSUES: No findings. OTHER: Lower lumbar fusion hardware appears intact. IMPRESSION: No fractures identified. COMMENT: Pelvic fractures are often occult on plain radiographs. If strong clinical suspicion for f racture, recommend CT or MR. TECHNICAL DOCUMENTATION: JOB ID: [id number] 2010 [employer]- All Rights Reserved Reading location - IP/workstation name: [email or web address]
--- NOTE | 2020-01-30 19:51 | RADIOLOGY REPORT (SQ) ---
EXAM DESCRIPTION: CHEST 2 VIEWS IMAGES COMPLETED DATE/TIME: 01/30/2020 7:24 pm REASON FOR STUDY: weakness COMPARISON: 09/01/2019 TECHNIQUE: Frontal and lateral radiographic views of the chest acquired. NUMBER OF VIEWS: Two view. LIMITATIONS: None. FINDINGS: LUNGS AND PLEURA: No pneumothorax. No consolidation or pleural effusion. MEDIASTINUM AND HILAR STRUCTURES: Stable. HEART AND VASCULAR STRUCTURES: Stable. BONES: No acute findings. HARDWARE: Thoracic spinal nerve stimulator. Thoracolumbar fusion hardware. OTHER: No other significant finding. IMPRESSION: NO ACUTE FINDINGS. TECHNICAL DOCUMENTATION: JOB ID: [id number] [id number] 2010 [employer]- All Rights Reserved Reading location - IP/workstation name: [employer]
[2020-01-30] MEDS ORDERED: HYDROCODONE/ACETAMINOPHEN 5-325 MG TABLET PO ONE (21:41)
[2020-01-30 21:56] LABS: APPEARANCE,URINE SLIGHTLY-CLOUDY; BILIRUBIN,URINE NEGATIVE (NEGATIVE); COLOR,URINE YELLOW; GLUCOSE, URINE NEGATIVE (NEGATIVE); KETONES,URINE NEGATIVE (NEGATIVE); LEUKOCYTE ESTERASE,URINE MODERATE (NEGATIVE); NITRITE,URINE POSITIVE (NEGATIVE); PROTEIN,URINE NEGATIVE (NEGATIVE); URINE SPECIFIC GRAVITY 1.013; UROBILINOGEN,URINE NEGATIVE mg/dL (<2.0)
[2020-01-30] MEDS ORDERED: CEFTRIAXONE 1 GM/D5W RTU 1 GM/50 ML RTUPB IV ONE (22:41)
[2020-01-30] MEDS ORDERED: MAG HYDROX/AL HYDROX/SIMETH SUSP 30 ML UDCUP PO PRN (23:23)
[2020-01-30] MEDS ORDERED: ONDANSETRON HCL INJ/PF 4 MG/2 ML SDV IV PRN (23:23)
[2020-01-30] MEDS ORDERED: GUAIFENESIN SYRP 200 MG/10 ML UDC PO PRN (23:28)
[2020-01-30] MEDS ORDERED: LORAZEPAM INJ 2 MG/1 ML VIAL IV PRN (23:28)
[2020-01-30] MEDS ORDERED: MORPHINE SULFATE 10 MG/ML INJ IV PRN ×2 (23:28→23:55)
[2020-01-30] MEDS ORDERED: ACETAMINOPHEN 325 MG TABLET PO PRN (23:28)
[2020-01-30] MEDS ORDERED: MELATONIN 5 MG TABLET PO PRN (23:28)
[2020-01-30] MEDS ORDERED: FAMOTIDINE 20 MG TABLET PO SCH (23:30)
[2020-01-30] MEDS ORDERED: MORPHINE SULFATE 10 MG/ML INJ INJ PRN ×3 (23:42→23:44)
[2020-01-30] MEDS ORDERED: FAMOTIDINE 20 MG TABLET PO ONE (23:45)
[2020-01-31] MEDS: DEXTROSE 5%-LACTATED RINGERS 1,000 ML IV PRN ×2 (02:06→08:26)
[2020-01-31] MEDS: HEPARIN SOD (PORCINE) 5,000 UNIT/ML 1 ML VIAL SUBCUT SCH ×3 (06:31→21:46)
--- NOTE | 2020-01-31 06:36 | PDOC H&P ---
History of Present Illness Admission Date/PCP: 01/30/2020 23:22 FABIAN BLISS MD Patient complains of: Generalized weakness History of Present Illness: ANA CABRERA is a 79 year old female who presented to the emergency room with a 4-day history of generalized weakness. She admits progressively worsening generalized weakness accompanied by progressively worsening dysuria and associated with progressively worsening orthostatic lightheadedness over the last 4 days. When she was seen at the pain management clinic today her blood pressure was 90/50 and she was transported to the ER via EMS. Her generalized weakness and other symptoms have become severe today. She denies other a ssociated or accompanying signs and symptoms. She admits prior similar episodes with urinary tract infections. She has not identified any aggravating or ameliorating factors for her generalized weakness. In the emergency room she was found to have pyuria with a positive leukocyte esterase and a positive nitrite. Empiric antibiotic therapy was initiated with Rocephin and she received 1 L of IV fluids. After initial treatment patient was still too weak to be able to walk and was subsequently admitted observation status for further treatment and evaluation. Past Medical History Cardiac Medical History: Reports: Hyperlipidema, Hypertension - on meds Denies: Coronary Artery Disease, Myocardial Infarction Pulmonary Medical History: Denies: Asthma, Bronchitis, Chronic Obstructive Pulmonary Disease (COPD), Pneumonia EENT Medical History: Denies: Cataracts, Ears - Hearing aids Neurological Medical History: Denies: Hemorrhagic CVA, Ischemic CVA, Seizures Endocrine Medical History: Denies: Diabetes Mellitus Type 1, Diabetes Mellitus Type 2, Hyperthyroidism, Hypothyroidism Renal/ Medical History: Reports: Other - Frequent urinary tract infections Denies: Chronic Kidney Disease, Nephrolithiasis Malignancy Medical History: Reports: None GI Medical History: Denies: Cirrhosis, Crohn's Disease, Hepatitis, Ulcerative Colitis Musculoskeltal Medical History: Reports: Arthritis - back, hips, Other - Chronic pain syndrome Denies: Gout Skin Medical History: Denies: Eczema, Psoriasis Psychiatric Medical History: Denies: Alcohol Dependency, Depression, Substance Abuse, Tobacco Dependency Traumatic Medical History: Reports: None Hematology: Denies: Anemia, Bleeding Tendencies Infectious Medical History: Reports: None Past Surgical History Past Surgical History: Reports: Hysterectomy, Orthopedic Surgery - Left knee replacement, left shoulder repair Social History Information Source: Patient Lives with: Spouse/Significant other Smoking Status: Never Smoker Electronic Cigarette use?: No Frequency of Alcohol Use: None Hx Recreational Drug Use: No Drugs: None Hx Prescription Drug Abuse: No - Advance Directive Resuscitation Status: Full Code Surrogate healthcare decision maker:: Umesh Cabrera Family History Family History: CAD - Aunts, DM - Mother, Hypertension - Father, Malignancy - Brother Parental Family History Reviewed: Yes Children Family History Reviewed: No Sibling(s) Family History Reviewed.: Yes Medication/Allergy Home Medications: Lansoprazole 25 mg PO Q6AM 06/30/12 Pregabalin [Lyrica 50 mg Capsule] 75 mg PO BID 06/30/12 Celecoxib [Celebrex 200 mg Capsule] 200 mg PO DAILY 12/29/15 Hydralazine HCl 50 mg PO BID 12/29/15 Hydrochlorothiazide 50 mg PO BID 12/29/15 Irbesartan [Avapro] 300 mg PO QHS 12/29/15 Oxycodone HCl/Acetaminophen [Oxycodone-Acetaminophen 5-325] 1 tab PO QIDP PRN 12/29/15 Sennosides [Natural Laxative] 25 mg PO DAILY 01/26/16 Atenolol [Tenormin] 25 mg PO DAILY 09/03/19 Fish Oil/Dha/Epa [Fish Oil 1,200 mg Fish Oil] 1 tab PO DAILY 09/03/19 Levothyroxine Sodium 0.05 mg PO Q6AM 09/03/19 Amoxicillin/Potassium Clav [Augmentin 875-125 Tablet] 1 tab PO Q12 5 Days tablet 09/05/19 Doxycycline Monohydrate 100 mg PO Q12 10 Days tablet 09/05/19 Allergies/Adverse Reactions: hydromorphone HCl [From Dilaudid] Allergy (Severe, Verified 01/26/16 09:58) too sleepy lisinopril [Lisinopril] Allergy (Severe, Verified 01/26/16 09:58) heart races Review of Systems Constitutional: PRESENT: as per HPI, weakness. ABSENT: chills, fever(s) Eyes: ABSENT: visual disturbances, other - Eye pain Ears: ABSENT: hearing changes, other - Ear pain Nose, Mouth, and Throat: ABSENT: headache(s), sore throat Cardiovascular: PRESENT: other - Orthostatic lightheadedness. ABSENT: chest pain, palpitations Respiratory: ABSENT: cough, dyspnea Gastrointestinal: ABSENT: abdominal pain, constipation, diarrhea, nausea, vomiting Genitourinary: PRESENT: as per HPI, dysuria. ABSENT: hematuria Musculoskeletal: PRESENT: back pain - Chronic, other - Left hip pain. ABSENT: deformity, joint swelling Integumentary: ABSENT: pruritus, rash Neurological: PRESENT: weakness - Generalized. ABSENT: confusion, convulsions, focal weakness, memory loss, syncope Psychiatric: ABSENT: anxiety, depression Endocrine: ABSENT: cold intolerance, heat intolerance Hematologic/Lymphatic: ABSENT: easy bleeding, easy bruising Allergic/Immunologic: ABSENT: seasonal rhinorrhea Physical Exam Vital Signs: Temp Pulse Resp BP Pulse Ox 97.9 F 62 17 132/94 H 98 01/30/20 21:00 01/30/20 18:29 01/30/20 22:00 01/30/20 22:00 01/30/20 22:00 Intake & Output 01/28/20 01/29/20 01/30/20 23:59 23:59 23:59 Intake Total 1000 Balance 1000 Weight 65.3 kg General appearance: PRESENT: no acute distress, cooperative Head exam: PRESENT: atraumatic, normocephalic Eye exam: PRESENT: conjunctiva pink. ABSENT: conjunctival injection, scleral icterus Ear exam: PRESENT: normal external ear exam. ABSENT: bleeding, drainage Mouth exam: PRESENT: dry mucosa, neck supple Neck exam: ABSENT: thyromegaly, tracheal deviation Respiratory exam: PRESENT: clear to auscultation deja, symmetrical, unlabored Cardiovascular exam: PRESENT: RRR. ABSENT: clicks, gallop, rubs Pulses: PRESENT: normal radial pulses, normal dorsalis pedis pul Vascular exam: PRESENT: normal capillary refill. ABSENT: pallor GI/Abdominal exam: PRESENT: normal bowel sounds, soft. ABSENT: tenderness Rectal exam: PRESENT: deferred Extremities exam: ABSENT: joint swelling, pedal edema Musculoskeletal exam: ABSENT: deformity, dislocation Neurological exam: PRESENT: alert, oriented to person, oriented to place, oriented to time, oriented to situation, CN II-XII grossly intact. ABSENT: motor sensory deficit Psychiatric exam: PRESENT: appropriate affect, normal mood Skin exam: PRESENT: dry, intact, warm. ABSENT: jaundice, rash, urticaria Results Laboratory Results: 01/30/20 18:26 01/30/20 18:26 01/30/20 01/30/20 01/30/20 18:26 18:26 19:11 WBC 7.8 RBC 4.76 Hgb 13.8 Hct 41.3 MCV 87 MCH 28.9 MCHC 33.4 RDW 14.8 H Plt Count 214 Seg Neutrophils % 59.2 Sodium 137.0 Potassium 4.8 Chloride 98 Carbon Dioxide 27 Anion Gap 12 BUN 40 H Creatinine 1.34 H Est GFR ( Amer) 46 L Glucose 97 Lactic Acid 1.4 Calcium 9.6 Total Bilirubin 0.5 AST 24 Alkaline Phosphatase 81 Total Protein 7.1 Albumin 4.2 Urine Color Urine Appearance Urine pH Ur Specific [place] Urine Protein Urine Glucose (UA) Urine Ketones Urine Blood Urine Nitrite Ur Leukocyte Esterase Urine WBC (Auto) Urine RBC (Auto) 01/30/20 21:25 WBC RBC Hgb Hct MCV MCH MCHC RDW Plt Count Seg Neutrophils % Sodium Potassium Chloride Carbon Dioxide Anion Gap BUN Creatinine Est GFR ( Amer) Glucose Lactic Acid Calcium Total Bilirubin AST Alkaline Phosphatase Total Protein Albumin Urine Color YELLOW Urine Appearance SLIGHTLY-CLOUDY Urine pH 5.0 Ur Specific [place] 1.013 Urine Protein NEGATIVE Urine Glucose (UA) NEGATIVE Urine Ketones NEGATIVE Urine Blood NEGATIVE Urine Nitrite POSITIVE H Ur Leukocyte Esterase MODERATE H Urine WBC (Auto) 41 Urine RBC (Auto) 0 01/30/20 18:26 Troponin I < 0.012 Impressions: Hip X-Ray 01/30/20 18:41 IMPRESSION: No fractures identified. Chest X-Ray 01/30/20 18:44 IMPRESSION: NO ACUTE FINDINGS. Assessment and Plan - Diagnosis (1) Urinary tract infection with pyuria Is this a current diagnosis for this admission?: Yes (2) Hypotension due to hypovolemia Is this a current diagnosis for this admission?: Yes (3) Weakness Is this a current diagnosis for this admission?: Yes (4) Dysuria Is this a current diagnosis for this admission?: Yes (5) Chronic low back pain Qualifiers: Back pain laterality: unspecified Sciatica presence: unspecified whether sciatica present Qualified Code(s): M54.5 - Low back pain; G89.29 - Other chronic pain Is this a current diagnosis for this admission?: Yes (6) Hypothyroid Qualifiers: Hypothyroidism type: unspecified Qualified Code(s): E03.9 - Hypothyroidism, unspecified Is this a current diagnosis for this admission?: Yes - Plan Summary Summary: Patient is admitted to observation status on the medical floor where she received routine supportive and symptomatic cares. She will initially be treated with IV Rocephin with conversion to oral antibiotics prior to discharge. She received IV fluids utilizing LR at 167 mL/h x 12 hours. A physical therapy consultation will be obtained. A case management consultation will be obtained. She will receive morphine sulfate 2 to 4 mg IV every 2 hours as needed for pain. She will receive Ativan 1 mg IV every 4 hours as needed for anxiety or restlessness. She will be treated with a cardiac diet. Additional laboratory and/or radiographic evaluations will be obtained as appropriate. A TSH will be obtained. - Time Time Spent with patient: Less than 15 minutes Anticipated Discharge Disposition: Home with Home Health Anticipated Discharge Timeframe: within 24 hours - Inpatient Certification Based on my medical assessment, after consideration of the patient's comorbi dities, presenting symptoms, or acuity I expect that the services needed warrant INPATIENT care.: No I certify that my determination is in accordance with my understanding of Medicare's requirements for reasonable and necessary INPATIENT services [42 CFR 412.3e].: No
[2020-01-31] MEDS: MORPHINE SULFATE 10 MG/ML INJ IV PRN ×4 (08:47→21:56)
[2020-01-31 10:43] LABS: ANION GAP 10 (5-19); BLOOD UREA NITROGEN 28 mg/dL (7-20); CALCIUM 9.2 mg/dL (8.4-10.2); CARBON DIOXIDE 24 mmol/L (22-30); CHLORIDE 105 mmol/L (98-107); GLUCOSE 154 mg/dL (75-110); POTASSIUM 4.6 mmol/L (3.6-5.0)
[2020-01-31] MEDS: DOCUSATE SODIUM 100 MG CAPSULE PO SCH ×2 (12:48→17:39)
[2020-01-31] MEDS ORDERED: (PENDING PHARMACY ID) (Sennosides [Senna] 8.6 MG) PO PRN (16:44)
--- NOTE | 2020-01-31 17:06 | PDOC PROGRESS REPORT ---
Subjective Progress Note for:: 01/31/20 Subjective:: Patient complaining of severe right hip pain. Physical therapy reports that stand pivot transfer to the commode required significant assistance. Reason For Visit: GENERALIZED WEAKENESS,URINARY TRACT INFECTION, Physical Exam Vital Signs: Temp Pulse Resp BP Pulse Ox 97.4 F 76 17 123/80 94 01/31/20 11:47 01/31/20 14:00 01/31/20 11:47 01/31/20 11:47 01/31/20 11:47 Intake & Output 01/30/20 01/31/20 02/01/20 06:59 06:59 06:59 Intake Total 1050 1480 Balance 1050 1480 Weight 66.6 kg General appearance: PRESENT: cooperative, well-developed, other - Moderate distress Head exam: PRESENT: atraumatic, normocephalic Respiratory exam: PRESENT: clear to auscultation deja, symmetrical, unlabored. ABSENT: prolonged expiratory phas, rales, rhonchi, tachypnea, wheezes Cardiovascular exam: PRESENT: RRR, +S1, +S2. ABSENT: diastolic murmur, irregular rhythm, systolic murmur, tachycardia GI/Abdominal exam: PRESENT: normal bowel sounds, soft. ABSENT: distended, guarding, tenderness Rectal exam: PRESENT: deferred Gentrourinary exam: ABSENT: indwelling catheter Extremities exam: ABSENT: pedal edema Musculoskeletal exam: PRESENT: normal inspection. ABSENT: deformity, dislocation Neurological exam: PRESENT: alert, awake, oriented to person, oriented to place, oriented to time, oriented to situation, CN II-XII grossly intact. ABSENT: altered Psychiatric exam: PRESENT: flat affect. ABSENT: agitated, anxious Focused psych exam: ABSENT: delusional, paranoid, restlessness Skin exam: PRESENT: dry, normal color, warm. ABSENT: cyanosis, erythema, rash Results Laboratory Results: 01/30/20 18:26 01/31/20 10:07 01/30/20 01/30/20 01/30/20 18:26 18:26 19:11 WBC 7.8 RBC 4.76 Hgb 13.8 Hct 41.3 MCV 87 MCH 28.9 MCHC 33.4 RDW 14.8 H Plt Count 214 Seg Neutrophils % 59.2 Sodium 137.0 Potassium 4.8 Chloride 98 Carbon Dioxide 27 Anion Gap 12 BUN 40 H Creatinine 1.34 H Est GFR ( Amer) 46 L Glucose 97 Lactic Acid 1.4 Calcium 9.6 Total Bilirubin 0.5 AST 24 Alkaline Phosphatase 81 Total Protein 7.1 Albumin 4.2 TSH Urine Color Urine Appearance Urine pH Ur Specific [place] Urine Protein Urine Glucose (UA) Urine Ketones Urine Blood Urine Nitrite Ur Leukocyte Esterase Urine WBC (Auto) Urine RBC (Auto) 01/30/20 01/31/20 01/31/20 21:25 10:07 10:07 WBC RBC Hgb Hct MCV MCH MCHC RDW Plt Count Seg Neutrophils % Sodium 139.1 Potassium 4.6 Chloride 105 Carbon Dioxide 24 Anion Gap 10 BUN 28 H Creatinine 0.95 Est GFR ( Amer) > 60 Glucose 154 H Lactic Acid Calcium 9.2 Total Bilirubin AST Alkaline Phosphatase Total Protein Albumin TSH 1.37 Urine Color YELLOW Urine Appearance SLIGHTLY-CLOUDY Urine pH 5.0 Ur Specific [place] 1.013 Urine Protein NEGATIVE Urine Glucose (UA) NEGATIVE Urine Ketones NEGATIVE Urine Blood NEGATIVE Urine Nitrite POSITIVE H Ur Leukocyte Esterase MODERATE H Urine WBC (Auto) 41 Urine RBC (Auto) 0 01/30/20 18:26 Troponin I < 0.012 Impressions: Hip X-Ray 01/30/20 18:41 IMPRESSION: No fractures identified. Chest X-Ray 01/30/20 18:44 IMPRESSION: NO ACUTE FINDINGS. Assessment and Plan - Diagnosis (1) Urinary tract infection with pyuria Is this a current diagnosis for this admission?: Yes (2) Hypotension due to hypovolemia Is this a current diagnosis for this admission?: Yes (3) RAMANA (acute kidney injury) Is this a current diagnosis for this admission?: Yes (4) Hip pain, bilateral Is this a current diagnosis for this admission?: Yes (5) Osteoarthritis Qualifiers: Osteoarthritis location: hip Osteoarthritis type: primary Laterality: bilateral Qualified Code(s): M16.0 - Bilateral primary osteoarthritis of hip Is this a current diagnosis for this admission?: Yes (6) Chronic pain syndrome Is this a current diagnosis for this admission?: Yes (7) Weakness Is this a current diagnosis for this admission?: Yes (8) Hypothyroid Qualifiers: Hypothyroidism type: unspecified Qualified Code(s): E03.9 - Hypothyroidism, unspecified Is this a current diagnosis for this admission?: Yes (9) Dysuria Is this a current diagnosis for this admission?: Yes - Plan Summary Summary: Patient is admitted to observation status on the medical floor where she received routine supportive and symptomatic cares. She will initially be treated with IV Rocephin with conversion to oral antibiotics prior to discharge. She received IV fluids utilizing LR at 167 mL/h x 12 hours. A physical therapy consultation will be obtained. A case management consultation will be obtained. She will receive morphine sulfate 2 to 4 mg IV every 2 hours as needed for pain. She will receive Ativan 1 mg IV every 4 hours as needed for anxiety or restlessness. She will be treated with a cardiac diet. Additional laboratory and/or radiographic evaluations will be obtained as appropriate. A TSH will be obtained. 01/31/2020 Urinary tract infection with [id number] bacilli growing in the urine culture. Final identification and sensitivity should be available tomorrow. Continue ceftriaxone. Hypotension due to hypovolemia-patient's blood pressure was low. Responded nicely to fluids and is improved this morning. I am not going to restart all of her antihypertensive medications at this point as it will surely bottom her pressure out. Resume medications slowly. Hypertension-the patient has essential hypertension. She is on multiple me dications. Due to the transient hypo-tension I will be holding some of her medications. These will resume as her blood pressure can tolerate it. Acute kidney injury-secondary to hypovolemia and likely urinary tract infection. Numbers significantly improved with IV fluids. Continue to monitor renal function. Hypothyroidism-continue patient's levothyroxine Chronic pain: Chronic back pain-the patient has had multiple disc fusions. Hardware is in place. She has a neural stimulator as well. She reports that she still has chronic pain and she does work with [facility] pain management. Hip pain-the patient has bilateral hip pain. The right is worse than left. She was told that she would benefit from total hip arthroplasty several years ago but declined. Unfortunately arthritic changes have progressed. Weakness-due to a constellation of factors including her infection and hypovolemia the patient is quite weak. Physical therapy will be working with the patient. Her pain also affects her mobility. We will continue medications for arthritis and chronic pain. - Time Time Spent with patient: 15-24 minutes Medications reviewed and adjusted accordingly: Yes Anticipated Discharge Disposition: Home with Home Health Anticipated Discharge Timeframe: within 72 hours
[2020-01-31] MEDS: FAMOTIDINE 20 MG TABLET PO SCH (21:27)
[2020-01-31] MEDS: PREGABALIN 75 MG CAPSULE PO SCH (21:27)
[2020-01-31] MEDS: NORMAL SALINE 1000 ML 1,000 ML IV PRN (21:32)
[2020-01-31] MEDS: CEFTRIAXONE 1 GM/D5W RTU 1 GM/50 ML RTUPB IV SCH (21:33)
[2020-01-31] MEDS: PANTOT AC/MIN OIL/PET HY-PHL OINT 50 GM TOP SCH (22:09)
[2020-01-31] MEDS: HYDROCORTISONE 1% OINTMENT 28.35 GM TP SCH (22:10)
[2020-02-01] MEDS: MORPHINE SULFATE 10 MG/ML INJ IV PRN (00:52)
[2020-02-01] MEDS: LEVOTHYROXINE SODIUM 0.025 MG TABLET PO SCH (05:44)
[2020-02-01] MEDS: HEPARIN SOD (PORCINE) 5,000 UNIT/ML 1 ML VIAL SUBCUT SCH ×3 (05:46→22:51)
[2020-02-01] MEDS: NORMAL SALINE 1000 ML 1,000 ML IV PRN (05:51)
[2020-02-01] MEDS ORDERED: (PENDING PHARMACY ID) (Atenolol [Tenormin] 25 MG) PO SCH (10:00)
[2020-02-01] MEDS: QUININE SULFATE 324 MG CAPSULE PO SCH (10:54)
[2020-02-01] MEDS: CELECOXIB 200 MG CAPSULE PO SCH (10:54)
[2020-02-01] MEDS: ATENOLOL 50 MG TABLET PO SCH (10:54)
[2020-02-01] MEDS: DOCUSATE SODIUM 100 MG CAPSULE PO SCH ×2 (10:54→17:55)
[2020-02-01] MEDS: PREGABALIN 75 MG CAPSULE PO SCH ×2 (10:54→22:47)
[2020-02-01] MEDS: HYDROCORTISONE 1% OINTMENT 28.35 GM TP SCH ×2 (10:57→17:54)
[2020-02-01] MEDS: PANTOT AC/MIN OIL/PET HY-PHL OINT 50 GM TOP SCH ×2 (10:59→17:53)
--- NOTE | 2020-02-01 13:06 | PDOC PROGRESS REPORT ---
Subjective Progress Note for:: 02/01/20 Subjective:: The patient is somewhat difficult to arouse. Nurses report that she has been sleeping most of the day. When asked she states that she sleeps most of the day when she is home as well. Reason For Visit: GENERALIZED WEAKENESS,URINARY TRACT INFECTION, Physical Exam Vital Signs: Temp Pulse Resp BP Pulse Ox 97.5 F 64 18 139/67 H 98 02/01/20 12:08 02/01/20 12:08 02/01/20 12:08 02/01/20 12:08 02/01/20 12:08 Intake & Output 01/31/20 02/01/20 02/02/20 06:59 06:59 06:59 Intake Total 1050 3602 Balance 1050 3602 Weight 66.6 kg 64.9 kg General appearance: PRESENT: no acute distress, cooperative, well-developed Head exam: PRESENT: atraumatic, normocephalic Ear exam: PRESENT: normal external ear exam. ABSENT: bleeding, drainage Respiratory exam: PRESENT: clear to auscultation deja, symmetrical, unlabored. ABSENT: prolonged expiratory phas, rales, rhonchi, tachypnea, wheezes Cardiovascular exam: PRESENT: RRR, +S1, +S2. ABSENT: bradycardia, diastolic murmur, irregular rhythm, systolic murmur, tachycardia GI/Abdominal exam: PRESENT: normal bowel sounds, soft. ABSENT: distended, guarding, tenderness Rectal exam: PRESENT: deferred Gentrourinary exam: ABSENT: indwelling catheter Neurological exam: ABSENT: awake - Very somnolent Psychiatric exam: PRESENT: other - Somnolent. ABSENT: agitated, anxious Focused psych exam: ABSENT: delusional, paranoid, restlessness Skin exam: PRESENT: dry, normal color, warm Results Laboratory Results: 01/30/20 18:26 01/31/20 10:07 01/30/20 21:25 Catheterized Urine Urine Culture - Final Escherichia Coli 01/30/20 18:26 Troponin I < 0.012 Impressions: Hip X-Ray 01/30/20 18:41 IMPRESSION: No fractures identified. Chest X-Ray 01/30/20 18:44 IMPRESSION: NO ACUTE FINDINGS. Assessment and Plan - Diagnosis (1) Urinary tract infection with pyuria Is this a current diagnosis for this admission?: Yes (2) Hypotension due to hypovolemia Is this a current diagnosis for this admission?: Yes (3) RAMANA (acute kidney injury) Is this a current diagnosis for this admission?: Yes (4) Hip pain, bilateral Is this a current diagnosis for this admission?: Yes (5) Osteoarthritis Qualifiers: Osteoarthritis location: hip Osteoarthritis type: primary Laterality: bilateral Qualified Code(s): M16.0 - Bilateral primary osteoarthritis of hip Is this a current diagnosis for this admission?: Yes (6) Chronic pain syndrome Is this a current diagnosis for this admission?: Yes (7) Weakness Is this a current diagnosis for this admission?: Yes (8) Hypothyroid Qualifiers: Hypothyroidism type: unspecified Qualified Code(s): E03.9 - Hypothyroidism, unspecified Is this a current diagnosis for this admission?: Yes (9) Dysuria Is this a current diagnosis for this admission?: Yes (10) Hypertension Qualifiers: Hypertension type: essential hypertension Qualified Code(s): I10 - Essential (primary) hypertension Is this a current diagnosis for this admission?: Yes - Plan Summary Summary: Patient is admitted to observation status on the medical floor where she received routine supportive and symptomatic cares. She will initially be topher martha with IV Rocephin with conversion to oral antibiotics prior to discharge. She received IV fluids utilizing LR at 167 mL/h x 12 hours. A physical therapy consultation will be obtained. A case management consultation will be obtained. She will receive morphine sulfate 2 to 4 mg IV every 2 hours as needed for pain. She will receive Ativan 1 mg IV every 4 hours as needed for anxiety or restlessness. She will be treated with a cardiac diet. Additional laboratory and/or radiographic evaluations will be obtained as appropriate. A TSH will be obtained. 01/31/2020 Urinary tract infection with [id number]-[id number] bacilli growing in the urine culture. Final identification and sensitivity should be available tomorrow. Continue ceftriaxone. Hypotension due to hypovolemia-patient's blood pressure was low. Responded nicely to fluids and is improved this morning. I am not going to restart all of her antihypertensive medications at this point as it will surely bottom her pressure out. Resume medications slowly. Hypertension-the patient has essential hypertension. She is on multiple medications. Due to the transient hypo-tension I will be holding some of her medications. These will resume as her blood pressure can tolerate it. Acute kidney injury-secondary to hypovolemia and likely urinary tract infection. Numbers significantly improved with IV fluids. Continue to monitor renal function. Hypothyroidism-continue patient's levothyroxine Chronic pain: Chronic back pain-the patient has had multiple disc fusions. Hardware is in place. She has a neural stimulator as well. She reports that she still has chronic pain and she does work with [employer] management. Hip pain-the patient has bilateral hip pain. The right is worse than left. She was told that she would benefit from total hip arthroplasty several years ago but declined. Unfortunately arthritic changes have progressed. Weakness-due to a constellation of factors including her infection and hypovolemia the patient is quite weak. Physical therapy will be working with the patient. Her pain also affects her mobility. We will continue medications for arthritis and chronic pain. 02/01/2020 Culture reveals E. coli sensitive to ceftriaxone. Continue same. Hypotension resolved with fluids GFR is back greater than 60. Continue levothyroxine. Patient with longstanding severe musculoskeletal/arthritic issues. We briefly discussed reevaluation for hip surgery once she is recovered from this infection. We can provide a list of orthopedic surgeons for them to see as an outpatient. It is likely that her somnolence is related to medication. I will discontinue the intravenous pain medication and continue her home regimen. - Time Time Spent with patient: Less than 15 minutes Medications reviewed and adjusted accordingly: Yes Anticipated Discharge Disposition: Home, Self Care Anticipated Discharge Timeframe: within 48 hours
[2020-02-01] MEDS ORDERED: BISACODYL 5 MG TABEC PO PRN (17:40)
[2020-02-01] MEDS: LORAZEPAM 0.5 MG TABLET PO SCH (17:54)
[2020-02-01] MEDS: FAMOTIDINE 20 MG TABLET PO SCH (22:47)
[2020-02-01] MEDS: CEFTRIAXONE 1 GM/D5W RTU 1 GM/50 ML RTUPB IV SCH (22:47)
[2020-02-01] MEDS: SENNOSIDES/DOCUSATE 8.6-50 MG 1 EACH TABLET PO SCH (22:50)
[2020-02-01] MEDS: LUBIPROSTONE 8 MCG CAPSULE PO SCH (22:52)
[2020-02-01] MEDS: HYDROCODONE/ACETAMINOPHEN 5-325 MG TABLET PO PRN (23:28)
[2020-02-02] MEDS: MORPHINE SULFATE 10 MG/ML INJ IV PRN ×2 (03:09→10:07)
[2020-02-02] MEDS: LEVOTHYROXINE SODIUM 0.025 MG TABLET PO SCH (06:22)
[2020-02-02] MEDS: HEPARIN SOD (PORCINE) 5,000 UNIT/ML 1 ML VIAL SUBCUT SCH ×2 (06:22→15:05)
[2020-02-02] MEDS: NORMAL SALINE 1000 ML 1,000 ML IV PRN ×2 (06:34→10:21)
[2020-02-02] MEDS: HYDROCODONE/ACETAMINOPHEN 5-325 MG TABLET PO PRN ×2 (06:35→17:20)
[2020-02-02] MEDS: QUININE SULFATE 324 MG CAPSULE PO SCH (09:35)
[2020-02-02] MEDS: CELECOXIB 200 MG CAPSULE PO SCH (09:35)
[2020-02-02] MEDS: LORAZEPAM 0.5 MG TABLET PO SCH ×2 (09:35→17:20)
[2020-02-02] MEDS: DOCUSATE SODIUM 100 MG CAPSULE PO SCH ×2 (09:35→17:21)
[2020-02-02] MEDS: PREGABALIN 75 MG CAPSULE PO SCH (09:35)
[2020-02-02] MEDS: ATENOLOL 50 MG TABLET PO SCH (09:36)
[2020-02-02] MEDS: SENNOSIDES/DOCUSATE 8.6-50 MG 1 EACH TABLET PO SCH ×2 (09:36→17:20)
[2020-02-02] MEDS: HYDROCORTISONE 1% OINTMENT 28.35 GM TP SCH ×2 (09:37→17:48)
[2020-02-02] MEDS: PANTOT AC/MIN OIL/PET HY-PHL OINT 50 GM TOP SCH ×2 (09:38→17:47)
[2020-02-02] MEDS: LUBIPROSTONE 8 MCG CAPSULE PO SCH ×2 (10:09→17:20)
--- NOTE | 2020-02-02 13:49 | PDOC DISCHARGE SUMMARY ---
Impression - Admit/DC Date/PCP Admission Date/Primary Care Provider: 01/30/20 23:21 FAIBAN BLISS MD Discharge Date: 02/02/20 - Discharge Diagnosis (1) Urinary tract infection with pyuria Is this a current diagnosis for this admission?: Yes (2) Hypotension due to hypovolemia Is this a current diagnosis for this admission?: Yes (3) RAMANA (acute kidney injury) Is this a current diagnosis for this admission?: Yes (4) Hip pain, bilateral Is this a current diagnosis for this admission?: Yes (5) Osteoarthritis Is this a current diagnosis for this admission?: Yes (6) Chronic pain syndrome Is this a current diagnosis for this admission?: Yes (7) Weakness Is this a current diagnosis for this admission?: Yes (8) Hypothyroid Is this a current diagnosis for this admission?: Yes (9) Dysuria Is this a current diagnosis for this admission?: Yes (10) Hypertension Is this a current diagnosis for this admission?: Yes - Assessment Summary: Patient is admitted to observation status on the medical floor where she received routine supportive and symptomatic cares. She will initially be treated with IV Rocephin with conversion to oral antibiotics prior to discharge. She received IV fluids utilizing LR at 167 mL/h x 12 hours. A physical therapy consultation will be obtained. A case management consultation will be obtained. She will receive morphine sulfate 2 to 4 mg IV every 2 hours as needed for pain. She will receive Ativan 1 mg IV every 4 hours as needed for anxiety or restlessness. She will be treated with a cardiac diet. Additional laboratory and/or radiographic evaluations will be obtained as appropriate. A TSH will be obtained. 01/31/2020 Urinary tract infection with [id number] bacilli growing in the urine culture. Final identification and sensitivity should be available tomorrow. Continue ceftriaxone. Hypotension due to hypovolemia-patient's blood pressure was low. Responded nicely to fluids and is improved this morning. I am not going to restart all of her antihypertensive medications at this point as it will surely bottom her pressure out. Resume medications slowly. Hypertension-the patient has essential hypertension. She is on multiple medications. Due to the transient hypo-tension I will be holding some of her medications. These will resume as her blood pressure can tolerate it. Acute kidney injury-secondary to hypovolemia and likely urinary tract infection. Numbers significantly improved with IV fluids. Continue to monitor renal function. Hypothyroidism-continue patient's levothyroxine Chronic pain: Chronic back pain-the patient has had multiple disc fusions. Hardware is in place. She has a neural stimulator as well. She reports that she still has chronic pain and she does work with [employer] management. Hip pain-the patient has bilateral hip pain. The right is worse than left. She was told that she would benefit from total hip arthroplasty several years ago but declined. Unfortunately arthritic changes have progressed. Weakness-due to a constellation of factors including her infection and hypovolemia the patient is quite weak. Physical therapy will be working with the patient. Her pain also affects her mobility. We will continue medications for arthritis and chronic pain. 02/01/2020 Culture reveals E. coli sensitive to ceftriaxone. Continue same. Hypotension resolved with fluids GFR is back greater than 60. Continue levothyroxine. Patient with longstanding severe musculoskeletal/arthritic issues. We briefly discussed reevaluation for hip surgery once she is recovered from this infection. We can provide a list of orthopedic surgeons for them to see as an outpatient. It is likely that her somnolence is related to medication. I will discontinue the intravenous pain medication and continue her home regimen. - Additional Information Resuscitation Status: Full Code Referrals: FABIAN BLISS MD [Primary Care Provider] - Prescriptions: Cefdinir 300 mg PO Q12 5 Days #10 capsule Home Medications: Lansoprazole 30 mg PO Q6AM 06/30/12 Celecoxib [Celebrex 200 mg Capsule] 200 mg PO DAILY 12/29/15 Atenolol [Tenormin] 25 mg PO DAILY 09/03/19 Levothyroxine Sodium 25 mcg PO Q6AM 09/03/19 Diclofenac Sodium 100 gm TP ASDIR PRN 01/31/20 Hydrocodone/Acetaminophen [Cylinder 5-325 mg Tablet] 1 tab PO QIDP PRN 01/31/20 Lorazepam [Ativan 0.5 mg Tablet] 0.5 mg PO BID 01/31/20 Pregabalin [Lyrica 75 mg Capsule] 75 mg PO Q12 01/31/20 Quinine Sulfate 324 mg PO DAILY 01/31/20 Sennosides [Senna] 8.6 mg PO DAILYP PRN 01/31/20 Simethicone [Gas-X] 125 mg PO DAILYP PRN 01/31/20 Cefdinir 300 mg PO Q12 5 Days #10 capsule 02/02/20 Hydrocortisone [Hydrocortisone 1% Ointment 28.35 gm] 1 applic TP BID tube 02/02/20 Pantot AC/Min Oil/Pet Hy-Phl [Aquaphor W-Jane Heal Oint 50 gm] 1 applic TOP BID tube 02/02/20 History of Present Illiness History of Present Illness: ANA FELTON is a 79 year old female who presented to the emergency room with a 4-day history of generalized weakness. She admits progressively worsening generalized weakness accompanied by progressively worsening dysuria and associated with progressively worsening orthostatic lightheadedness over the last 4 days. When she was seen at the pain management clinic today her blood pressure was 90/50 and she was transported to the ER via EMS. Her generalized weakness and other symptoms have become severe today. She denies other associated or accompanying signs and symptoms. She admits prior similar episodes with urinary tract infections. She has not identified any aggravating or ameliorating factors for her generalized weakness. In the emergency room she was found to have pyuria with a positive leukocyte esterase and a positive nitrite. Empiric antibiotic therapy was initiated with Rocephin and she received 1 L of IV fluids. After initial treatment patient was still too weak to be able to walk and was subsequently admitted observation status for further treatment and evaluation. Hospital Course Hospital Course: Please also see above The patient's significant pain from polyarthropathy as well as a bad back limited her mobility. Unfortunately this is her baseline at home. She also has had a marginal appetite with limited fluid intake. I explained how important it was to drink adequate fluids especially in light of her acute kidney injury and hypotension. With regard to her urinary tract infection, the patient has Pseudomonas in her urine. It is resistant to the majority of first-line medications. It is sensitive to third-generation cephalosporins. I explained to the patient and her that it is possible that the Pseudomonas has become resistant to medications that she has been given for urinary tract infections recently. This might explain the recurrent infections. Now that we have a sensitivity to work from I will move her ceftriaxone dose up early and discharge with oral third-generation cephalosporin therapy as an outpatient. With IV fluids her blood pressure and acute kidney injury improved. She is still not on all of her antihypertensive medications. Physical Exam Vital Signs: Temp Pulse Resp BP Pulse Ox 97.9 F 65 18 146/84 H 97 02/02/20 10:00 02/02/20 07:19 02/02/20 07:19 02/02/20 07:19 02/02/20 07:19 Intake & Output 02/01/20 02/02/20 02/03/20 06:59 06:59 06:59 Intake Total 3602 1680 378 Balance 3602 1680 378 Weight 64.9 kg 64.9 kg General appearance: PRESENT: no acute distress, cooperative Mouth exam: PRESENT: dry mucosa, tongue midline Teeth exam: PRESENT: poor dentation Cardiovascular exam: PRESENT: RRR, +S1, +S2. ABSENT: bradycardia, diastolic murmur, irregular rhythm, systolic murmur, tachycardia GI/Abdominal exam: PRESENT: normal bowel sounds, soft. ABSENT: tenderness Rectal exam: PRESENT: deferred Neurological exam: PRESENT: alert, awake, oriented to person, oriented to place, oriented to time, oriented to situation, CN II-XII grossly intact Psychiatric exam: PRESENT: appropriate affect. ABSENT: agitated, anxious Focused psych exam: ABSENT: delusional, paranoid, restlessness Results Laboratory Results: WBC 7.8 10^3/uL (4.0-10.5) 01/30/20 18:26 RBC 4.76 10^6/uL (3.72-5.28) 01/30/20 18:26 Hgb 13.8 g/dL (12.0-15.5) 01/30/20 18:26 Hct 41.3 % (36.0-47.0) 01/30/20 18:26 MCV 87 fl (80-97) 01/30/20 18:26 MCH 28.9 pg (27.0-33.4) 01/30/20 18:26 MCHC 33.4 g/dL (32.0-36.0) 01/30/20 18:26 RDW 14.8 % (11.5-14.0) H 01/30/20 18:26 Plt Count 214 10^3/uL (150-450) 01/30/20 18:26 Lymph % (Auto) 31.8 % (13-45) 01/30/20 18:26 Logan % (Auto) 6.5 % (3-13) 01/30/20 18:26 Eos % (Auto) 1.8 % (0-6) 01/30/20 18:26 Baso % (Auto) 0.7 % (0-2) 01/30/20 18: Absolute Neuts (auto) 4.6 10^3/uL (1.7-8.2) 01/30/20 18: Absolute Lymphs (auto) 2.5 10^3/uL (0.5-4.7) 01/30/20 18:26 Absolute Monos (auto) 0.5 10^3/uL (0.1-1.4) 01/30/20 18: Absolute Eos (auto) 0.1 10^3/uL (0.0-0.6) 01/30/20 18: Absolute Basos (auto) 0.1 10^3/uL (0.0-0.2) 01/30/20 18: Seg Neutrophils % 59.2 % (42-78) 01/30/20 18:26 Sodium 139.1 mmol/L (137-145) 01/31/20 10:07 Potassium 4.6 mmol/L (3.6-5.0) 01/31/20 10:07 Chloride 105 mmol/L (98-107) 01/31/20 10:07 Carbon Dioxide 24 mmol/L (22-30) 01/31/20 10:07 Anion Gap 10 (5-19) 01/31/20 10:07 BUN 28 mg/dL (7-20) H 01/31/20 10:07 Creatinine 0.95 mg/dL (0.52-1.25) 01/31/20 10:07 Est GFR ( Amer) > 60 (>60) 01/31/20 10:07 Est GFR (MDRD) Non-Af 57 (>60) L 01/31/20 10:07 Glucose 154 mg/dL (75-110) H 01/31/20 10:07 Lactic Acid 1.4 mmol/L (0.7-2.1) 01/30/20 19:11 Calcium 9.2 mg/dL (8.4-10.2) 01/31/20 10:07 Total Bilirubin 0.5 mg/dL (0.2-1.3) 01/30/20 18: Direct Bilirubin 0.4 mg/dL (0.0-0.4) 01/30/20 18:26 Neonat Total Bilirubin Not Reportable 01/30/20 18:26 Neonat Direct Bilirubin Not Reportable 01/30/20 18: Neonat Indirect Bili Not Reportable 01/30/20 18: AST 24 U/L (14-36) 01/30/20 18: ALT 14 U/L (<35) 01/30/20 18: Alkaline Phosphatase 81 U/L (38-126) 01/30/20 18: Troponin I < 0.012 ng/mL 01/30/20 18: Total Protein 7.1 g/dL (6.3-8.2) 01/30/20 18: Albumin 4.2 g/dL (3.5-5.0) 01/30/20 18: TSH 1.37 uIU/mL (0.47-4.68) 01/31/20 10:07 Urine Color YELLOW 01/30/20 21: Urine Appearance SLIGHTLY-CLOUDY 01/30/20 21:25 Urine pH 5.0 (5.0-9.0) 01/30/20 21:25 Ur Specific [place] 1.013 01/30/20 21: Urine Protein NEGATIVE mg/dL (NEGATIVE) 01/30/20 21: Urine Glucose (UA) NEGATIVE mg/dL (NEGATIVE) 01/30/20 21: Urine Ketones NEGATIVE mg/dL (NEGATIVE) 01/30/20 21: Urine Blood NEGATIVE (NEGATIVE) 01/30/20 21:25 Urine Nitrite POSITIVE (NEGATIVE) H 01/30/20 21:25 Urine Bilirubin NEGATIVE (NEGATIVE) 01/30/20 21: Urine Urobilinogen NEGATIVE mg/dL (<2.0) 01/30/20 21:25 Ur Leukocyte Esterase MODERATE (NEGATIVE) H 01/30/20 21:25 Urine WBC (Auto) 41 /HPF 01/30/20 21:25 Urine RBC (Auto) 0 /HPF 01/30/20 21:25 U Hyaline Cast (Auto) 1 /LPF 01/30/20 21:25 Urine Bacteria (Auto) 1+ /HPF 01/30/20 21:25 Squamous Epi Cells Auto <1 /HPF 01/30/20 21:25 Urine Ascorbic Acid NEGATIVE (NEGATIVE) 01/30/20:25 01/30/20 18:26 Troponin I < 0.012 Impressions: Hip X-Ray 01/30/20 18:41 IMPRESSION: No fractures identified. Chest X-Ray 01/30/20 18:44 IMPRESSION: NO ACUTE FINDINGS. 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
[2020-02-02 15:51] VITALS: BP 147/78
[2020-02-02] MEDS ORDERED: CEFTRIAXONE 1 GM/D5W RTU 1 GM/50 ML RTUPB IV ONE (16:00)
[2020-02-02] MEDS ORDERED: MINERAL OIL ENEMA 133 ML PR ONE ×2 (17:00→17:16)
== END 2020-02-02 18:30 | disposition home or self-care (01) ==
LOC: ER 17:36 → EH 23:21 → 3S 01-31 00:49
PROVIDERS: ADMIT Emergency Medicine; ATTEND Hospitalist
DX: R82.81 Pyuria (principal); I95.9 Hypotension, unspecified; E86.1 Hypovolemia; N17.9 Acute kidney failure, unspecified; M16.0 Bilateral primary osteoarthritis of hip; M25.551 Pain in right hip; M25.552 Pain in left hip; G89.4 Chronic pain syndrome; R53.1 Weakness; E03.9 Hypothyroidism, unspecified; R30.0 Dysuria; I10 Essential (primary) hypertension; K59.03 Drug induced constipation; R42 Dizziness and giddiness; W19.XXXA Unspecified fall, initial encounter; Z88.8 Allergy status to other drugs, medicaments and biological substances; Z79.899 Other long term (current) drug therapy
CPT/HCPCS: 99285; 96361; 96365; 36415 ×2; 87040; 87086; 83605; 84443; 85025; 87088; 80048; 80053; 81001; 84484; 87186; 71046; 73502; 97116; 97163; G0378 ×5; A9270 ×27; J1644 ×3; J2270 ×3; J2060; J3490 ×3; J7121; J7030 ×4; J0696 ×4

== ENCOUNTER 2020-02-16 15:03 | Inpatient (IN) | payer MEDICARE, BC ==
[2020-02-16] MEDS ORDERED: NORMAL SALINE 1000 ML 1,000 ML IV ONE (15:42)
--- NOTE | 2020-02-16 15:44 | ER Document Report ---
ED General - General Chief Complaint: Nausea/Vomiting Stated Complaint: VOMITING Time Seen by Provider: 02/16/20 15:29 Mode of Arrival: Medic Information source: Patient Notes: 79-year-old female patient presented to the emergency department with complaints of decreased oral intake, cough and vomiting. Patient reports she started vomiting this morning. She has vomited twice. She reports the cough also started today. It is a wet sounding cough. She lives at home with her . Her urged her to come to the emergency department after she appeared very weak to him. She was recently discharged from our facility for a urinary tract infection. Patient denies any current dysuria. She does report generalized malaise. Denies any fever or chills. Patient is hypotensive on arrival. TRAVEL OUTSIDE OF THE [place] IN LAST 30 DAYS: No - Related Data Allergies/Adverse Reactions: hydromorphone HCl [From Dilaudid] Allergy (Severe, Verified 01/26/16 09:58) too sleepy lisinopril [Lisinopril] Allergy (Severe, Verified 01/26/16 09:58) heart races Past Medical History - General Information source: Patient, [facility] Records - Social History Smoking Status: Never Smoker Family History: CAD - Aunts, DM - Mother, Hypertension - Father, Malignancy - Brother - Past Medical History Cardiac Medical History: Reports: Hx Hypercholesterolemia, Hx Hypertension - on meds Musculoskeletal Medical History: Reports Hx Arthritis - back, hips Past Surgical History: Reports: Hx Genitourinary Surgery - bladder sling, Hx Hysterectomy, Hx Orthopedic Surgery - Left knee replacement, left shoulder repair - Immunizations Hx Diphtheria, Pertussis, Tetanus Vaccination: Yes Hx Pneumococcal Vaccination: 04/17/13 Review of Systems - Review of Systems Constitutional: Malaise. denies: Fever EENT: No symptoms reported Cardiovascular: No symptoms reported Respiratory: Cough Gastrointestinal: Nausea, Vomiting - x2 this am Genitourinary: denies: Dysuria Musculoskeletal: Back pain -: Yes All other systems reviewed and negative Physical Exam - Vital signs Vitals: Temp 98.1 F 02/16/20 15:03 - Notes Notes: GENERAL: No acute distress, non-toxic appearance. HEAD: Normal with no signs of head trauma. EYES: EOMI, conjunctiva normal, no discharge. EARS: Hearing grossly intact. NOSE: Normal. THROAT: Oropharynx is normal. Dry mucous membranes. NECK: Normal range of motion, no tenderness, supple, no lymphadenopathy, No adenopathy, no JVD. CHEST: Clear breath sounds bilaterally. No wheezes, scattered rhonchi. CARDIAC: Regular rate and rhythm. S1 and S2, without murmurs, gallops, or rubs. VASCULAR: No Edema. Peripheral pulses normal and equal in all extremities. ABDOMEN: Normal and soft with no tenderness, no masses or pulsatile masses. GENITOURINARY: Normal, No tenderness LYMPATHTIC: No lymphadenopathy noted. MUSCULOSKELETAL: Normal range of motion, tenderness in the lumbar spinal region. NEUROLOGICAL: Alert and oriented x 3. No focal sensory or strength deficits. Speech normal. Follows commands appropriately. PSYCHIATRIC: Normal Affect, judgement and mood. SKIN: Normal appearance with no rashes or lesions. Course - Re-evaluation Re-evalutation: 02/16/20 16:[address] Tidwell. 02/16/20 17:42 Patient had approximately 800 cc of yellow urine output upon insertion of the Henderson catheter. She has received a total of 2 L of IV fluids in the emergency department. This has brought her maps above 70. She is still hypotensive. Patient remains alert, oriented, answering all questions appropriately. We are pending urinalysis at this time. It has just been sent to the lab. I did call and speak with the hospitalist, Dr. Ribera regarding patient's hypotension, RAMANA and leukocytosis. He agrees the patient should be admitted to the hospital, I will call him as soon as we have urinalysis resulted. 02/16/20 18:05 Dr. Ribera came to the bedside and evaluated the patient. Her urinalysis has returned and has no acute abnormalities. She will be admitted for RAMANA and dehydration. - Vital Signs Vital signs: Temp Pulse Resp BP Pulse Ox 98.1 F 9 L 88/63 L 95 02/16/20 15:03 02/16/20 17:30 02/16/20 17:31 02/16/20 17:31 - Laboratory Result Diagrams: 02/16/20 15:20 02/16/20 15:20 Laboratory results interpreted by me: 02/16/20 02/16/20 02/16/20 15:20 15:20 15:20 WBC 15.7 H RDW 14.1 H Lymph % (Auto) 11.6 L Absolute Neuts (auto) 13.0 H Seg Neutrophils % 82.8 H Sodium 128.6 L Chloride 87 L BUN 38 H Creatinine 2.58 H Est GFR ( Amer) 22 L Est GFR (MDRD) Non-Af 18 L Glucose 119 H Creatine Kinase 369 H CK-MB (CK-2) 5.64 H Total Protein 6.2 L Discharge - Discharge Clinical Impression: Hypovolemia due to dehydration, Hypotension due to hypovolemia Leukocytosis Qualifiers: Leukocytosis type: unspecified Qualified Code(s): D72.829 - Elevated white blood cell count, unspecified Condition: Stable Disposition: ADMITTED INPATIENT Admitting Provider: Mounika (Hospitalist) Unit Admitted: Medical Floor
[2020-02-16 15:46] LABS: ABSOLUTE BASOPHILS # (AUTO) 0.1 10^3/uL (0.0-0.2); ABSOLUTE EOSINOPHILS # (AUTO) 0.2 10^3/uL (0.0-0.6); ABSOLUTE LYMPHOCYTES (AUTO) 1.8 10^3/uL (0.5-4.7); ABSOLUTE MONOCYTES (AUTO) 0.6 10^3/uL (0.1-1.4); BASOPHILS % (AUTO) 0.3 % (0-2); EOSINOPHILS % (AUTO) 1.5 % (0-6); HEMATOCRIT 37.3 % (36.0-47.0); HEMOGLOBIN 12.6 g/dL (12.0-15.5); LYMPHOCYTES % (AUTO) 11.6 % (13-45); MEAN CORPUSCULAR HEMOGLOBIN 29.1 pg (27.0-33.4); MEAN CORPUSCULAR HGB CONC 33.7 g/dL (32.0-36.0); MEAN CORPUSCULAR VOLUME 86 fl (80-97); MONOCYTES % (AUTO) 3.8 % (3-13); PLATELET COUNT 340 10^3/uL (150-450); RED BLOOD COUNT 4.32 10^6/uL (3.72-5.28); RED CELL DISTRIBUTION WIDTH 14.1 % (11.5-14.0); SEGMENTED NEUTROPHILS % (AUTO) 82.8 % (42-78); TOTAL CELLS COUNTED % (AUTO) 100 %; WHITE BLOOD COUNT 15.7 10^3/uL (4.0-10.5)
[2020-02-16 15:54] LABS: ALBUMIN 3.7 g/dL (3.5-5.0); ALKALINE PHOSPHATASE 84 U/L (38-126); ANION GAP 16 (5-19); ASPARTATE AMINO TRANSFERASE 33 U/L (14-36); BILIRUBIN,DIRECT 0.3 mg/dL (0.0-0.4); BILIRUBIN,TOTAL 0.7 mg/dL (0.2-1.3); BLOOD UREA NITROGEN 38 mg/dL (7-20); CALCIUM 9.2 mg/dL (8.4-10.2); CARBON DIOXIDE 26 mmol/L (22-30); CHLORIDE 87 mmol/L (98-107); CREATINE KINASE 369 U/L (30-135); GLUCOSE 119 mg/dL (75-110); TOTAL PROTEIN 6.2 g/dL (6.3-8.2)
--- NOTE | 2020-02-16 16:02 | RADIOLOGY REPORT (SQ) ---
EXAM DESCRIPTION: CHEST SINGLE VIEW IMAGES COMPLETED DATE/TIME: 02/16/2020 3:54 pm REASON FOR STUDY: cough COMPARISON: 01/30/2020 EXAM PARAMETERS: NUMBER OF VIEWS: One view. TECHNIQUE: Single frontal radiographic view of the chest acquired. RADIATION DOSE: NA LIMITATIONS: None. FINDINGS: LUNGS AND PLEURA: Chronic elevation right diaphragm. No opacities, masses or pneumothorax . No pleural effusion. MEDIASTINUM AND HILAR STRUCTURES: No masses. Contour normal. HEART AND VASCULAR STRUCTURES: Heart normal in size. Normal vasculature. BONES: No acute findings. HARDWARE: Thoracic neurostimulator. OTHER: Hiatal hernia. IMPRESSION: NO ACUTE RADIOGRAPHIC FINDING IN THE CHEST. TECHNICAL DOCUMENTATION: JOB ID: [id number] 2010 [employer]- All Rights Reserved Reading location - IP/workstation name: [email or web address]
[2020-02-16 16:12] LABS: CREATINE KINASE MB 5.64 ng/mL (<4.55); TROPONIN I 0.028 ng/mL
[2020-02-16] MEDS ORDERED: NORMAL SALINE 1000 ML 1,000 ML IV PRN ×2 (16:25→17:36)
[2020-02-16 18:05] LABS: APPEARANCE,URINE CLEAR; BILIRUBIN,URINE NEGATIVE (NEGATIVE); COLOR,URINE YELLOW; GLUCOSE, URINE NEGATIVE (NEGATIVE); KETONES,URINE NEGATIVE (NEGATIVE); LEUKOCYTE ESTERASE,URINE NEGATIVE (NEGATIVE); NITRITE,URINE NEGATIVE (NEGATIVE); PROTEIN,URINE NEGATIVE (NEGATIVE); URINE SPECIFIC GRAVITY 1.011; UROBILINOGEN,URINE NEGATIVE mg/dL (<2.0)
[2020-02-16] MEDS ORDERED: ONDANSETRON HCL INJ/PF 4 MG/2 ML SDV IV PRN (18:25)
--- NOTE | 2020-02-16 18:55 | PDOC H&P ---
History of Present Illness Admission Date/PCP: 02/16/20 18:18 FABIAN BLISS MD History of Present Illness: ANA FELTON is a 79 year old female who has been admitted a couple of times this year for an infectious process, and typically whenever she comes in this way she feels poorly and she is dehydrated. She was just discharged from this hospital about 2 weeks ago after being admitted for UTI and dehydration. She went home and completed a course of antibiotics. Its not on her medication list, but she says she takes a "fluid pill "at home because she says her feet swell sometimes. She could not remember the name of it, but she says that she takes it in about an hour later she winds up having to urinate. She said her primary care doctor gave it to her. She does have a history of grade 2 diastolic dysfunction and increased right ventricular systolic pressure indicative of mild pulmonary hypertension along with a mildly dilated right ventricle on her echocardiogram that was done here about 5 years ago and so she may take a diuretic for this purpose. She said she ate a sausage biscuit with gravy yesterday morning and her had the same thing. She said she ate it fine, but she did not eat anything for lunch and she did not eat anything for dinner. She said yesterday evening she started to feel poorly and has vomited a couple times overnight. She has not run a fever. She is not had any cough or shortness of breath. She has not noticed any breaks in her skin or anything that would be consistent with a cellulitis. She does not have any sacral butto cks sores. She was hypotensive when she came in via EMS and her blood pressure has responded to some IV fluids. She initially did not put out any urine but after couple liters of fluid she produced a little bit of urine. Her chest x- ray and urinalysis were unremarkable. She did have a leukocytosis but after some fluid her vital signs were otherwise stable. She had an elevated BUN and creatinine substantially elevated above her baseline at 2.58. Her sodium was down to 128. She has not had any diarrhea. No abdominal pain. She says she is generally weak and was getting physical therapy at home. Past Medical History Cardiac Medical History: Reports: Hyperlipidema, Hypertension - on meds Denies: Coronary Artery Disease, Myocardial Infarction Pulmonary Medical History: Denies: Asthma, Bronchitis, Chronic Obstructive Pulmonary Disease (COPD), Pneumonia Neurological Medical History: Denies: Seizures Endocrine Medical History: Denies: Diabetes Mellitus Type 1, Diabetes Mellitus Type 2, Hyperthyroidism, Hypothyroidism GI Medical History: Denies: Cirrhosis, Crohn's Disease, Hepatitis, Ulcerative Colitis Musculoskeltal Medical History: Reports: Arthritis - back, hips Denies: Gout Skin Medical History: Denies: Eczema, Psoriasis Psychiatric Medical History: Denies: Depression Hematology: Denies: Anemia, Bleeding Tendencies Past Surgical History Past Surgical History: Reports: Hysterectomy, Orthopedic Surgery - Left knee replacement, left shoulder repair Social History Smoking Status: Never Smoker Electronic Cigarette use?: No Frequency of Alcohol Use: None Hx Recreational Drug Use: No Drugs: None Hx Prescription Drug Abuse: No Family History Family History: CAD - Aunts, DM - Mother, Hypertension - Father, Malignancy - Brother Parental Family History Reviewed: Yes Children Family History Reviewed: Yes Sibling(s) Family History Reviewed.: Yes Medication/Allergy Home Medications: Lansoprazole 30 mg PO Q6AM 06/30/12 Celecoxib [Celebrex 200 mg Capsule] 200 mg PO DAILY 12/29/15 Atenolol [Tenormin] 25 mg PO DAILY 09/03/19 Levothyroxine Sodium 25 mcg PO Q6AM 09/03/19 Diclofenac Sodium 100 gm TP ASDIR PRN 01/31/20 Hydrocodone/Acetaminophen [Clyde 5-325 mg Tablet] 1 tab PO QIDP PRN 01/31/20 Lorazepam [Ativan 0.5 mg Tablet] 0.5 mg PO BID 01/31/20 Pregabalin [Lyrica 75 mg Capsule] 75 mg PO Q12 01/31/20 Quinine Sulfate 324 mg PO DAILY 01/31/20 Sennosides [Senna] 8.6 mg PO DAILYP PRN 01/31/20 Simethicone [Gas-X] 125 mg PO DAILYP PRN 01/31/20 Cefdinir 300 mg PO Q12 5 Days #10 capsule 02/02/20 Hydrocortisone [Hydrocortisone 1% Ointment 28.35 gm] 1 applic TP BID tube 02/02/20 Lubiprostone [Amitiza 8 Mcg Capsule] 1 cap PO BID #14 capsule 02/02/20 Pantot AC/Min Oil/Pet Hy-Phl [Aquaphor W-Jane Heal Oint 50 gm] 1 applic TOP BID tube 02/02/20 Allergies/Adverse Reactions: hydromorphone HCl [From Dilaudid] Allergy (Severe, Verified 01/26/16 09:58) too sleepy lisinopril [Lisinopril] Allergy (Severe, Verified 01/26/16 09:58) heart races Review of Systems All systems: reviewed and no additional remarkable complaints except as stated - All systems were reviewed and were negative except as noted in HPI Physical Exam Vital Signs: Temp Pulse Resp BP Pulse Ox 98.1 F 9 L 88/63 L 95 02/16/20 15:03 02/16/20 17:30 02/16/20 17:31 02/16/20 17:31 Intake & Output 02/15/20 02/16/20 02/17/20 07:59 06:59 06:59 Intake Total 1999 Balance 1999 Weight 64.2 kg General appearance: PRESENT: no acute distress, cooperative, disheveled Head exam: PRESENT: atraumatic, normocephalic Eye exam: PRESENT: EOMI, PERRLA. ABSENT: conjunctival injection, nystagmus, scleral icterus Mouth exam: PRESENT: dry mucosa, neck supple Teeth exam: PRESENT: poor dentation Throat exam: ABSENT: post pharyngeal erythema, tonsillar erythema, tonsillar exudate Neck exam: PRESENT: full ROM. ABSENT: carotid bruit, JVD, lymphadenopathy, meningismus, tenderness, thyromegaly Respiratory exam: PRESENT: clear to auscultation deja, symmetrical, unlabored. ABSENT: accessory muscle use, chest wall tenderness, crackles, prolonged expiratory phas, rhonchi, tachypnea, wheezes Cardiovascular exam: PRESENT: RRR, +S1, +S2 Pulses: PRESENT: normal carotid pulses Vascular exam: PRESENT: normal capillary refill GI/Abdominal exam: PRESENT: normal bowel sounds, soft. ABSENT: distended, guarding, rebound, tenderness Extremities exam: ABSENT: clubbing, pedal edema Musculoskeletal exam: PRESENT: normal inspection. ABSENT: deformity Neurological exam: PRESENT: awake, oriented to person, oriented to place, oriented to situation, CN II-XII grossly intact. ABSENT: motor sensory deficit Psychiatric exam: PRESENT: flat affect Skin exam: PRESENT: dry, warm, other - Very wrinkly with diminished turgor Results Laboratory Results: 02/16/20 15:20 02/16/20 15:20 02/16/20 02/16/20 02/16/20 15:20 15:20 15:20 WBC 15.7 H RBC 4.32 Hgb 12.6 Hct 37.3 MCV 86 MCH 29.1 MCHC 33.7 RDW 14.1 H Plt Count 340 Seg Neutrophils % 82.8 H Sodium 128.6 L Potassium 4.0 Chloride 87 L Carbon Dioxide 26 Anion Gap 16 BUN 38 H Creatinine 2.58 H Est GFR ( Amer) 22 L Glucose 119 H Lactic Acid 1.4 Calcium 9.2 Total Bilirubin 0.7 AST 33 Alkaline Phosphatase 84 Total Protein 6.2 L Albumin 3.7 Urine Color Urine Appearance Urine pH Ur Specific [place] Urine Protein Urine Glucose (UA) Urine Ketones Urine Blood Urine Nitrite Ur Leukocyte Esterase Urine WBC (Auto) 02/16/20 17:35 WBC RBC Hgb Hct MCV MCH MCHC RDW Plt Count Seg Neutrophils % Sodium Potassium Chloride Carbon Dioxide Anion Gap BUN Creatinine Est GFR ( Amer) Glucose Lactic Acid Calcium Total Bilirubin AST Alkaline Phosphatase Total Protein Albumin Urine Color YELLOW Urine Appearance CLEAR Urine pH 5.0 Ur Specific [place] 1.011 Urine Protein NEGATIVE Urine Glucose (UA) NEGATIVE Urine Ketones NEGATIVE Urine Blood NEGATIVE Urine Nitrite NEGATIVE Ur Leukocyte Esterase NEGATIVE Urine WBC (Auto) 0 02/16/20 02/16/20 15:20 15:20 Creatine Kinase 369 H CK-MB (CK-2) 5.64 H Troponin I 0.028 Impressions: Chest X-Ray 02/16/20 15:25 IMPRESSION: NO ACUTE RADIOGRAPHIC FINDING IN THE CHEST. Assessment and Plan - Diagnosis (1) Hypotension due to hypovolemia Is this a current diagnosis for this admission?: Yes (2) Hypovolemia due to dehydration Is this a current diagnosis for this admission?: Yes (3) RAMANA (acute kidney injury) Is this a current diagnosis for this admission?: Yes (4) Chronic low back pain Qualifiers: Back pain laterality: bilateral Sciatica presence: without sciatica Qualified Code(s): M54.5 - Low back pain; G89.29 - Other chronic pain Is this a current diagnosis for this admission?: Yes (5) Hip pain, bilateral Is this a current diagnosis for this admission?: Yes (6) Hypothyroid Qualifiers: Hypothyroidism type: unspecified Qualified Code(s): E03.9 - Hypothyroidism, unspecified Is this a current diagnosis for this admission?: Yes (7) Osteoarthritis Qualifiers: Osteoarthritis location: hip Osteoarthritis type: primary Laterality: bilateral Qualified Code(s): M16.0 - Bilateral primary osteoarthritis of hip Is this a current diagnosis for this admission?: Yes (8) Weakness Is this a current diagnosis for this admission?: Yes - Plan Summary Summary: Dictations. We will get a try to avoid anything that is going to lower her blood pressure at this point.She has a lot of chronic health problems which will be managed her blood pressure has responded to IV fluids and so I think she is merely volume depleted. We cannot find a source for an infection at this time. As previously noted, she says that she takes what sounds like a diuretic medication at home but it is not listed on her medication list. I suspect that with her decreased mobility, she has been taking her medication but is probably been not been drinking enough water because she is not wanting to get up to go to the bathroom. This is led to dehydration and renal failure which has led to her nausea and vomiting. She has not been nauseated or vomited in the ER. She feels better after getting some fluid. Going to hydrate her overnight and have physical therapy come see her and will follow up repeat blood work in the mo rning. - Time Time Spent with patient: 35 or more minutes Anticipated Discharge Disposition: Home with Home Health Anticipated Discharge Timeframe: within 72 hours - Inpatient Certification Based on my medical assessment, after consideration of the patient's comorbidities, presenting symptoms, or acuity I expect that the services needed warrant INPATIENT care.: Yes I certify that my determination is in accordance with my understanding of Medicare's requirements for reasonable and necessary INPATIENT services [42 CFR 412.3e].: Yes Medical Necessity: Significant Comorbidiites Make Outpatient Treatment Too Risky, Need Close Monitoring Due to Risk of Patient Decompensation, Need For IV Fluids, Need For Continuous Telemetry Monitoring, Risk of Complication if Not Cared For in Hospital
[2020-02-16] MEDS: HEPARIN SOD (PORCINE) 5,000 UNIT/ML 1 ML VIAL SUBCUT SCH (21:49)
[2020-02-16] MEDS: NORMAL SALINE 1000 ML 1,000 ML IV PRN (21:49)
[2020-02-17] MEDS: HYDROCODONE/ACETAMINOPHEN 5-325 MG TABLET PO PRN ×4 (02:52→21:35)
[2020-02-17] MEDS: HEPARIN SOD (PORCINE) 5,000 UNIT/ML 1 ML VIAL SUBCUT SCH ×3 (05:29→21:22)
[2020-02-17 05:34] LABS: HEMOGLOBIN 11.4 g/dL (12.0-15.5); MEAN CORPUSCULAR HEMOGLOBIN 28.8 pg (27.0-33.4); MEAN CORPUSCULAR HGB CONC 33.4 g/dL (32.0-36.0); MEAN CORPUSCULAR VOLUME 86 fl (80-97); PLATELET COUNT 225 10^3/uL (150-450); RED BLOOD COUNT 3.94 10^6/uL (3.72-5.28); RED CELL DISTRIBUTION WIDTH 14.3 % (11.5-14.0); WHITE BLOOD COUNT 12.7 10^3/uL (4.0-10.5)
--- NOTE | 2020-02-17 06:25 | EKG REPORT ---
SEVERITY:- BORDERLINE ECG - SINUS RHYTHM CONSIDER ANTERIOR INFARCT BORDERLINE T ABNORMALITIES, ANTERIOR LEADS : Confirmed by: Kurtis Hill MD 17-Feb-2020 06:23:02
[2020-02-17 08:20] LABS: ANION GAP 10 (5-19); BLOOD UREA NITROGEN 25 mg/dL (7-20); CARBON DIOXIDE 23 mmol/L (22-30); CHLORIDE 102 mmol/L (98-107); GLUCOSE 86 mg/dL (75-110); POTASSIUM 3.8 mmol/L (3.6-5.0)
[2020-02-17] MEDS ORDERED: HYDROCODONE/ACETAMINOPHEN 5-325 MG TABLET PO PRN (11:14)
[2020-02-17] MEDS ORDERED: (PENDING PHARMACY ID) (Sennosides [Senna] 8.6 MG) PO PRN (11:14)
[2020-02-17] MEDS ORDERED: SENNOSIDES/DOCUSATE 8.6-50 MG 1 EACH TABLET PO PRN (11:32)
--- NOTE | 2020-02-17 16:37 | PDOC PROGRESS REPORT ---
Subjective Progress Note for:: 02/17/20 Subjective:: No adverse events overnight. No new complaints. Her home medications have been restarted. Her appetite has not been great but she is not been nauseated and she has been eating some of her meals. Urine output has been good. Reason For Visit: RAMANA,DEHYDRATION Physical Exam Vital Signs: Temp Pulse Resp BP Pulse Ox 98.6 F 79 17 126/71 H 88 L 02/17/20 15:38 02/17/20 15:38 02/17/20 15:38 02/17/20 15:38 02/17/20 15:38 Intake & Output 02/16/20 02/17/20 02/18/20 06:59 06:59 06:59 Intake Total 3000 Output Total 1325 Balance 1675 Weight 64 kg General appearance: PRESENT: no acute distress, cooperative, disheveled Respiratory exam: PRESENT: clear to auscultation deja, symmetrical, unlabored. ABSENT: accessory muscle use, chest wall tenderness, crackles, prolonged expiratory phas, rhonchi, tachypnea, wheezes Cardiovascular exam: PRESENT: RRR, +S1, +S2 Pulses: PRESENT: normal carotid pulses Vascular exam: PRESENT: normal capillary refill GI/Abdominal exam: PRESENT: normal bowel sounds, soft. ABSENT: distended, guarding, rebound, tenderness Extremities exam: ABSENT: clubbing, pedal edema Musculoskeletal exam: PRESENT: normal inspection. ABSENT: deformity Neurological exam: PRESENT: awake, oriented to person, oriented to place, oriented to situation Psychiatric exam: PRESENT: flat affect Skin exam: PRESENT: dry, warm, other - Very wrinkly Results Laboratory Results: 02/17/20 05:06 02/17/20 07:34 02/16/20 02/16/20 02/17/20 15:20 17:35 05:06 WBC 12.7 H RBC 3.94 Hgb 11.4 L Hct 34.0 L MCV 86 MCH 28.8 MCHC 33.4 RDW 14.3 H Plt Count 225 Sodium Potassium Chloride Carbon Dioxide Anion Gap BUN Creatinine Est GFR ( Amer) Glucose Lactic Acid 1.4 Calcium Urine Color YELLOW Urine Appearance CLEAR Urine pH 5.0 Ur Specific [place] 1.011 Urine Protein NEGATIVE Urine Glucose (UA) NEGATIVE Urine Ketones NEGATIVE Urine Blood NEGATIVE Urine Nitrite NEGATIVE Ur Leukocyte Esterase NEGATIVE Urine WBC (Auto) 0 02/17/20 07:34 WBC RBC Hgb Hct MCV MCH MCHC RDW Plt Count Sodium 135.1 L Potassium 3.8 Chloride 102 Carbon Dioxide 23 Anion Gap 10 BUN 25 H Creatinine 1.23 Est GFR ( Amer) 51 L Glucose 86 Lactic Acid Calcium 8.0 L Urine Color Urine Appearance Urine pH Ur Specific [place] Urine Protein Urine Glucose (UA) Urine Ketones Urine Blood Urine Nitrite Ur Leukocyte Esterase Urine WBC (Auto) 02/16/20 02/16/20 02/16/20 15:20 15:20 18:00 Creatine Kinase 369 H CK-MB (CK-2) 5.64 H Troponin I 0.028 0.018 Impressions: Chest X-Ray 02/16/20 15:25 IMPRESSION: NO ACUTE RADIOGRAPHIC FINDING IN THE CHEST. Assessment and Plan - Diagnosis (1) Hypotension due to hypovolemia Is this a current diagnosis for this admission?: Yes (2) Hypovolemia due to dehydration Is this a current diagnosis for this admission?: Yes (3) RAMANA (acute kidney injury) Is this a current diagnosis for this admission?: Yes (4) Chronic low back pain Qualifiers: Back pain laterality: bilateral Sciatica presence: without sciatica Qualified Code(s): M54.5 - Low back pain; G89.29 - Other chronic pain Is this a current diagnosis for this admission?: Yes (5) Hip pain, bilateral Is this a current diagnosis for this admission?: Yes (6) Hypothyroid Qualifiers: Hypothyroidism type: unspecified Qualified Code(s): E03.9 - Hypothyroidism, unspecified Is this a current diagnosis for this admission?: Yes (7) Osteoarthritis Qualifiers: Osteoarthritis location: hip Osteoarthritis type: primary Laterality: bilateral Qualified Code(s): M16.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 She has had good urine output. She once again reiterated that she does take a "fluid pill" and I asked her to get her to bring all of her medications to the hospital so that we can take a look at them. She said that she would call him and have him do so. White blood cell count came down without us giving her any antibiotics and none of her cultures returned positive and there is no source of infection or suspicion of infection at this time. We will order a physical therapy evaluation. She was getting PT at home. - Time Time Spent with patient: 15-24 minutes Anticipated Discharge Disposition: Home with Home Health Anticipated Discharge Timeframe: within 72 hours
[2020-02-17] MEDS: NORMAL SALINE 1000 ML 1,000 ML IV PRN (17:04)
[2020-02-17] MEDS: LORAZEPAM 0.5 MG TABLET PO SCH (17:33)
[2020-02-17] MEDS: LUBIPROSTONE 8 MCG CAPSULE PO SCH (17:33)
[2020-02-17] MEDS: PREGABALIN 75 MG CAPSULE PO SCH (21:22)
[2020-02-18] MEDS: HYDROCODONE/ACETAMINOPHEN 5-325 MG TABLET PO PRN ×2 (02:42→10:39)
[2020-02-18] MEDS: HEPARIN SOD (PORCINE) 5,000 UNIT/ML 1 ML VIAL SUBCUT SCH ×2 (05:04→14:32)
[2020-02-18] MEDS ORDERED: (PENDING PHARMACY ID) (Lansoprazole [Lansoprazole] 30 MG) PO SCH (06:00)
[2020-02-18] MEDS ORDERED: LEVOTHYROXINE SODIUM 0.025 MG TABLET PO SCH (06:00)
[2020-02-18] MEDS ORDERED: PANTOPRAZOLE SODIUM 40 MG TABLET.DR PO SCH (06:00)
[2020-02-18 07:29] LABS: HEMATOCRIT 31.1 % (36.0-47.0); HEMOGLOBIN 10.6 g/dL (12.0-15.5); MEAN CORPUSCULAR HEMOGLOBIN 29.3 pg (27.0-33.4); MEAN CORPUSCULAR HGB CONC 34.1 g/dL (32.0-36.0); MEAN CORPUSCULAR VOLUME 86 fl (80-97); PLATELET COUNT 241 10^3/uL (150-450); RED BLOOD COUNT 3.63 10^6/uL (3.72-5.28); RED CELL DISTRIBUTION WIDTH 14.2 % (11.5-14.0)
[2020-02-18 07:52] LABS: ANION GAP 13 (5-19); BLOOD UREA NITROGEN 14 mg/dL (7-20); CALCIUM 8.7 mg/dL (8.4-10.2); CARBON DIOXIDE 22 mmol/L (22-30); CHLORIDE 102 mmol/L (98-107); GLUCOSE 99 mg/dL (75-110); POTASSIUM 3.8 mmol/L (3.6-5.0)
[2020-02-18] MEDS ORDERED: (PENDING PHARMACY ID) (Atenolol [Tenormin] 25 MG) PO SCH (10:00)
[2020-02-18] MEDS ORDERED: QUININE SULFATE 324 MG CAPSULE PO SCH (10:00)
[2020-02-18] MEDS ORDERED: ATENOLOL 50 MG TABLET PO SCH (10:00)
[2020-02-18] MEDS: LORAZEPAM 0.5 MG TABLET PO SCH (10:34)
[2020-02-18] MEDS: PREGABALIN 75 MG CAPSULE PO SCH (10:38)
[2020-02-18] MEDS: LUBIPROSTONE 8 MCG CAPSULE PO SCH (10:40)
--- NOTE | 2020-02-18 13:22 | PDOC DISCHARGE SUMMARY ---
Impression - Admit/DC Date/PCP Admission Date/Primary Care Provider: 02/16/20 18:18 FABIAN BLISS MD Discharge Date: 02/18/20 - Discharge Diagnosis (1) Hypotension due to hypovolemia Is this a current diagnosis for this admission?: Yes (2) RAMANA (acute kidney injury) Is this a current diagnosis for this admission?: Yes (3) Hypovolemia due to dehydration Is this a current diagnosis for this admission?: Yes (4) Hyponatremia Is this a current diagnosis for this admission?: Yes (5) Ambulatory dysfunction Is this a current diagnosis for this admission?: Yes (6) Leukocytosis Is this a current diagnosis for this admission?: Yes (7) Chronic low back pain Is this a current diagnosis for this admission?: Yes (8) Hip pain, bilateral Is this a current diagnosis for this admission?: Yes (9) Hypothyroid Is this a current diagnosis for this admission?: Yes (10) Osteoarthritis Is this a current diagnosis for this admission?: Yes (11) Weakness Is this a current diagnosis for this admission?: Yes - Additional Information Discharge Diet: Regular Discharge Activity: Supervised Activity Referrals: FABIAN BLISS MD [Primary Care Provider] - Follow up as needed Home Medications: Lansoprazole 30 mg PO Q6AM 06/30/12 Celecoxib [Celebrex 200 mg Capsule] 200 mg PO DAILY 12/29/15 Atenolol [Tenormin] 25 mg PO DAILY 09/03/19 Levothyroxine Sodium 25 mcg PO Q6AM 09/03/19 Diclofenac Sodium 100 gm TP ASDIR PRN 01/31/20 Hydrocodone/Acetaminophen [[place] 5-325 mg Tablet] 1 tab PO QIDP PRN 01/31/20 Lorazepam [Ativan 0.5 mg Tablet] 0.5 mg PO BID 01/31/20 Pregabalin [Lyrica 75 mg Capsule] 75 mg PO Q12 01/31/20 Quinine Sulfate 324 mg PO DAILY 01/31/20 Sennosides [Senna] 8.6 mg PO DAILYP PRN 01/31/20 Simethicone [Gas-X] 125 mg PO DAILYP PRN 01/31/20 Cefdinir 300 mg PO Q12 5 Days #10 capsule 02/02/20 Hydrocortisone [Hydrocortisone 1% Ointment 28.35 gm] 1 applic TP BID tube 02/02/20 Lubiprostone [Amitiza 8 Mcg Capsule] 1 cap PO BID #14 capsule 02/02/20 Pantot AC/Min Oil/Pet Hy-Phl [Aquaphor W-Jane Heal Oint 50 gm] 1 applic TOP BID tube 02/02/20 History of Present Illiness History of Present Illness: According to admitting provider: ANA FELTON is a 79 year old female who has been admitted a couple of times this year for an infectious process, and typically whenever she comes in this way she feels poorly and she is dehydrated. She was just discharged from this hospital about 2 weeks ago after being admitted for UTI and dehydration. She went home and completed a course of antibiotics. Its not on her medication list, but she says she takes a "fluid pill "at home because she says her feet swell sometimes. She could not remember the name of it, but she says that she takes it in about an hour later she winds up having to urinate. She said her primary care doctor gave it to her. She does have a history of grade 2 diastolic dysfunction and increased right ventricular systolic pressure indicative of mild pulmonary hypertension along with a mildly dilated right ventricle on her echocardiogram that was done here about 5 years ago and so she may take a diuretic for this purpose. She said she ate a sausage biscuit with gravy yesterday morning and her had the same thing. She said she ate it fine, but she did not eat anything for lunch and she did not eat anything for dinner. She said yesterday evening she started to feel poorly and has vomited a couple times overnight. She has not run a fever. She is not had any cough or shortness of breath. She has not noticed any breaks in her skin or anything that would be consistent with a cellulitis. She does not have any sacral buttocks sores. She was hypotensive when she came in via EMS and her blood pressure has responded to some IV fluids. She initially did not put out any urine but after couple liters of fluid she produced a little bit of urine. Her chest x-ray and urinalysis were unremarkable. She did have a leukocytosis but after some fluid her vital signs were otherwise stable. She had an elevated BUN and creatinine substantially elevated above her baseline at 2.58. Her sodium was down to 128. She has not had any diarrhea. No abdominal pain. She says she is generally weak and was getting physical therapy at home. Hospital Course Hospital Course: Patient was admitted to the hospital for evaluation of weakness and ambulatory dysfunction. Vital signs were notable for hypotension. Blood work revealed acute kidney injury with creatinine of 2.5 which is significantly elevated from patient's baseline. Patient was also hyponatremic at 128. Patient's symptoms were thought to be due to dehydration and hypovolemia. Patient's also notes that patient does not eat or drink much and just essentially lays in bed all day. Patient was started on IV fluids in the hospital with resolution of patient electrolyte abnormalities and resolution of patient's RAMANA. Hypovolemia has also resolved and blood pressure is adequate. Today I discussed with patient and patient's about disposition. Patient's makes most of her decisions as she does have some frequent episodes of confusion which he says is chronic and waxes and wanes. She was however able to engage in the discussion and is at her baseline mental status. I discussed my recommendation to discharge patient to SNF for rehabilitation given patient's poor performance with physical therapist yesterday. Patient and patient's have however declined placement at SNF and requesting to go back home with the usual PT and OT at home. I have explained the risks and my safety concerns but they still request to be discharged home. I will respect their wishes and discharge him home. Encourage patient to stay hydrated. Physical Exam Vital Signs: Temp Pulse Resp BP Pulse Ox 99 F 90 21 H 146/91 H 96 02/18/20 08:00 02/18/20 08:00 02/18/20 08:00 02/18/20 08:00 02/18/20 08:00 Intake & Output 02/17/20 02/18/20 02/19/20 06:59 06:59 06:59 Intake Total 3000 1120 1000 Output Total 1325 875 Balance 1523 265 8420 Weight 64 kg 66.7 kg General appearance: PRESENT: no acute distress, cooperative Neck exam: ABSENT: JVD Respiratory exam: PRESENT: clear to auscultation deja, unlabored. ABSENT: wheezes Cardiovascular exam: PRESENT: +S1, +S2 GI/Abdominal exam: PRESENT: soft. ABSENT: tenderness Neurological exam: PRESENT: alert, awake Results Laboratory Results: WBC 9.0 10^3/uL (4.0-10.5) 02/18/20 06:56 RBC 3.63 10^6/uL (3.72-5.28) L 02/18/20 06:56 Hgb 10.6 g/dL (12.0-15.5) L 02/18/20 06:56 Hct 31.1 % (36.0-47.0) L 02/18/20 06:56 MCV 86 fl (80-97) 02/18/20 06:56 MCH 29.3 pg (27.0-33.4) 02/18/20 06:56 MCHC 34.1 g/dL (32.0-36.0) 02/18/20 06:56 RDW 14.2 % (11.5-14.0) H 02/18/20 06:56 Plt Count 241 10^3/uL (150-450) 02/18/20 06:56 Lymph % (Auto) 11.6 % (13-45) L 02/16/20 15:20 [place] % (Auto) 3.8 % (3-13) 02/16/20 15:20 Eos % (Auto) 1.5 % (0-6) 02/16/20 15:20 Baso % (Auto) 0.3 % (0-2) 02/16/20 15:20 Absolute Neuts (auto) 13.0 10^3/uL (1.7-8.2) H 02/16/20 15:20 Absolute Lymphs (auto) 1.8 10^3/uL (0.5-4.7) 02/16/20 15:20 Absolute Monos (auto) 0.6 10^3/uL (0.1-1.4) 02/16/20 15:20 Absolute Eos (auto) 0.2 10^3/uL (0.0-0.6) 02/16/20 15:20 Absolute Basos (auto) 0.1 10^3/uL (0.0-0.2) 02/16/20 15:20 Seg Neutrophils % 82.8 % (42-78) H 02/16/20 15:20 Sodium 137.0 mmol/L (137-145) 02/18/20 06:56 Potassium 3.8 mmol/L (3.6-5.0) 02/18/20 06:56 Chloride 102 mmol/L (98-107) 02/18/20 06:56 Carbon Dioxide 22 mmol/L (22-30) 02/18/20 06:56 Anion Gap 13 (5-19) 02/18/20 06:56 BUN 14 mg/dL (7-20) 02/18/20 06:56 Creatinine 0.78 mg/dL (0.52-1.25) 02/18/20 06:56 Est GFR ( Amer) > 60 (>60) 02/18/20 06:56 Est GFR (MDRD) Non-Af > 60 (>60) 02/18/20 06:56 Glucose 99 mg/dL (75-110) 02/18/20 06:56 Lactic Acid 1.4 mmol/L (0.7-2.1) 02/16/20 15:20 Calcium 8.7 mg/dL (8.4-10.2) 02/18/20 06:56 Total Bilirubin 0.7 mg/dL (0.2-1.3) 02/16/20 15:20 Direct Bilirubin 0.3 mg/dL (0.0-0.4) 02/16/20 15:20 Neonat Total Bilirubin Not Reportable 02/16/20 15:20 Neonat Direct Bilirubin Not Reportable 02/16/20 15:20 Neonat Indirect Bili Not Reportable 02/16/20 15:20 AST 33 U/L (14-36) 02/16/20 15:20 ALT 13 U/L (<35) 02/16/20 15:20 Alkaline Phosphatase 84 U/L (38-126) 02/16/20 15:20 Creatine Kinase 369 U/L (30-135) H 02/16/20 15:20 CK-MB (CK-2) 5.64 ng/mL (<4.55) H 02/16/20 15:20 Troponin I 0.018 ng/mL 02/16/20 18:00 Total Protein 6.2 g/dL (6.3-8.2) L 02/16/20 15:20 Albumin 3.7 g/dL (3.5-5.0) 02/16/20 15:20 Urine Color YELLOW 02/16/20 17:35 Urine Appearance CLEAR 02/16/20 17:35 Urine pH 5.0 (5.0-9.0) 02/16/20 17:35 Ur Specific [place] 1.011 02/16/20 17:35 Urine Protein NEGATIVE mg/dL (NEGATIVE) 02/16/20 17:35 Urine Glucose (UA) NEGATIVE mg/dL (NEGATIVE) 02/16/20 17:35 Urine Ketones NEGATIVE mg/dL (NEGATIVE) 02/16/20 17:35 Urine Blood NEGATIVE (NEGATIVE) 02/16/20 17:35 Urine Nitrite NEGATIVE (NEGATIVE) 02/16/20 17:35 Urine Bilirubin NEGATIVE (NEGATIVE) 02/16/20 17:35 Urine Urobilinogen NEGATIVE mg/dL (<2.0) 02/16/20 17:35 Ur Leukocyte Esterase NEGATIVE (NEGATIVE) 02/16/20 17:35 Urine WBC (Auto) 0 /HPF 02/16/20 17:35 Urine Bacteria (Auto) TRACE /HPF 02/16/20 17:35 Squamous Epi Cells Auto <1 /HPF 02/16/20 17:35 Urine Mucus (Auto) RARE /LPF 02/16/20 17:35 Urine Ascorbic Acid NEGATIVE (NEGATIVE) 02/16/20 17:35 02/16/20 02/16/20 15:20 18:00 CK-MB (CK-2) 5.64 H Troponin I 0.028 0.018 Impressions: Chest X-Ray 02/16/20 15:25 IMPRESSION: NO ACUTE RADIOGRAPHIC FINDING IN THE CHEST. Plan Time Spent: Less than 30 Minutes Stroke Is this a Stroke Patient?: No Acute Heart Failure Is this a Heart Failure Patient?: No
[2020-02-18 14:55] VITALS: BP 146/91
== END 2020-02-18 15:30 | disposition home health service (06) | DRG 683 ==
LOC: ER 15:03 → EH 18:18 → 5 21:34
PROVIDERS: ADMIT Family Medicine; ATTEND Internal Medicine
DX: N17.9 Acute kidney failure, unspecified (principal); E87.1 Hypo-osmolality and hyponatremia; E86.0 Dehydration; I95.89 Other hypotension; E86.1 Hypovolemia; G89.29 Other chronic pain; M54.5 Low back pain; E03.9 Hypothyroidism, unspecified; E78.5 Hyperlipidemia, unspecified; I10 Essential (primary) hypertension; M16.0 Bilateral primary osteoarthritis of hip; Z96.652 Presence of left artificial knee joint; Z79.899 Other long term (current) drug therapy; Z82.49 Family history of ischemic heart disease and other diseases of the circulatory system; Z83.3 Family history of diabetes mellitus; Z80.9 Family history of malignant neoplasm, unspecified; Z79.891 Long term (current) use of opiate analgesic; Z88.6 Allergy status to analgesic agent; Z88.8 Allergy status to other drugs, medicaments and biological substances
CPT/HCPCS: 36415; 71045; 80048; 80053; 81001; 82550; 82553; 83605; 84484; 85025; 85027; 87040; 87086; 93005; 93010; 96360; 96361; 99285; J1644; J3490; J7030

== ENCOUNTER 2020-04-28 18:07 | Inpatient (IN) | payer MEDICARE, BC ==
[2020-04-28] MEDS: DEXTROSE 5%-WATER 250 ML with NOREPINEPHRINE BITARTRATE 4 MG IV PRN ×2 (18:24)
--- NOTE | 2020-04-28 18:29 | ER Document Report ---
ED General - General Stated Complaint: POSSIBLE SEPSIS Time Seen by Provider: 04/28/20 18:28 TRAVEL OUTSIDE OF THE [place] IN LAST 30 DAYS: No - HPI Notes: 79-year-old female arrives from home. Per EMS report, patient has not had any p.o. intake for the past 4 days. She is also had diarrhea for the past 4 days, however per the home health nurse her stool was more formed today. Patient is reportedly usually alert and oriented x4 at baseline, today she was only oriented to self. Initial blood pressure on arrival was 60 over palp, they administered 300 mL LR and blood pressure did not improve, therefore they started Levophed at 4 and uptitrated to 6. She is also 88% on room air, increased to 95% with 4L nasal cannula. Her glucose was 90, her lactic was 4. 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 - Related Data Allergies/Adverse Reactions: hydromorphone HCl [From Dilaudid] Allergy (Severe, Verified 01/26/16 09:58) too sleepy lisinopril [Lisinopril] Allergy (Severe, Verified 01/26/16 09:58) heart races Past Medical History - General Information source: Emergency Med Personnel - Social History Smoking Status: Unknown if Ever Smoked Family History: CAD - Aunts, DM - Mother, Hypertension - Father, Malignancy - Brother - Past Medical History Cardiac Medical History: Reports: Hx Hypercholesterolemia, Hx Hypertension - on meds Denies: Hx Coronary Artery Disease, Hx Heart Attack Pulmonary Medical History: Denies: Hx Asthma, Hx Bronchitis, Hx COPD, Hx Pneumonia Neurological Medical History: Denies: Hx Cerebrovascular Accident, Hx Seizures Endocrine Medical History: Denies: Hx Diabetes Mellitus Type 1, Hx Diabetes Mellitus Type 2, Hx Hyperthyroidism, Hx Hypothyroidism GI Medical History: Denies: Hx Cirrhosis, Hx Crohn's Disease, Hx Hepatitis, Hx Ulcerative Colitis Musculoskeletal Medical History: Reports Hx Arthritis - back, hips, Denies Hx Gout Skin Medical History: Denies Hx Eczema, Denies Hx Psoriasis Psychiatric Medical History: Denies: Hx Depression Infectious Medical History: Denies: Hx Hepatitis Past Surgical History: Reports: Hx Genitourinary Surgery - bladder sling, Hx Hysterectomy, Hx Orthopedic Surgery - Left knee replacement, left shoulder repair - Immunizations Hx Diphtheria, Pertussis, Tetanus Vaccination: Yes Hx Pneumococcal Vaccination: 04/17/13 Review of Systems - Review of Systems -: Yes ROS unobtainable due to patient's medical condition Physical Exam - Vital signs Vitals: Resp BP 13 88/26 L 04/28/20 22:00 04/28/20 22:00 - General General appearance: Other - Chronically ill-appearing, will mumble an attempt to answer questions - HEENT Head: Normocephalic, Atraumatic Pupils: PERRL Mucous membranes: Dry - Respiratory Respiratory status: No: Tachypnea Breath sounds: Rhonchi - Cardiovascular Rhythm: Regular Heart sounds: Normal auscultation Murmur: Yes Pulses: Normal: Radial, Dorsalis pedis Decreased capillary refill in seconds: 4 - Abdominal Distension: No distension Bowel sounds: Normal Tenderness: Nontender - Extremities General lower extremity: No: Edema - Neurological Notes: Face is symmetric, moves upper extremities, lower extremities known to be paralyzed - Psychological Associated symptoms: Other - Unable to fully assess - Skin Skin Temperature: Cool Course - Re-evaluation Re-evalutation: 79-year-old female arrives via EMS from home, hypotensive and started on a Levophed drip. No p.o. intake and diarrhea x4 days. On exam patient will attempt to answer questions but mostly mumbles, she is afebrile and not tachycardic, she is notably hypotensive. Her mucous membranes are incredibly dry. She has some coarse rhonchi in her lung rabago. Abdomen is soft without focal area of tenderness. Extremities are cool. The patient is presenting in shock. Concern for us likely combination of septic and hypovolemic. Suspecting metabolic abnormalities as well. She will undergo marked fluid resuscitation with 3L of LR. Check chest x-ray for consolidation, UA for UTI. Patient has bowel movement will send for culture and C. difficile. Continue on Levophed. 04/28/20 18:48 Patient is more lucid. We talked about her home environment, she states that she does not have any pets at home, her daughter has a cat at her house. 04/28/20 19:33 Chemistry is back. Patient has significant metabolic acidosis with bicarb of 5 and anion gap of 26. Marked RAMANA, creatinine 4.28. Lactic of 5. Hyperkalemia, no EKG changes, calcium gluconate ordered which will also address her hypocalcemia. 04/28/20 20:12 Patient's is at bedside, I updated him on results so far. States that she does not have a spinal tumor. Rather she has severe degenerative disc disease, underwent surgery and had disc collapse resulting in the paralysis, this was a fairly recent diagnosis in January. He provided consent to place a central line. Patient is remarkably still alert and able to communicate. 04/28/20 20:52 Central line placed, chest x-ray ordered for verification 04/28/20 23:16 Patient remains alert, she was able to swallow 2 Tylenols for her back pain. Blood pressure has responded well to intervention. Fourth liter of LR about to be hung given how collapsible her IVC/IJ was. She has good urine output, though it is notably nohemi pyuria. Repeat labs have been ordered 04/29/20 00:29 Lactic acid has down trended to 3.5. Hyperkalemia has resolved. BUN and creatinine have much improved as well. Sodium essentially about the same 04/29/20 00:31 Reassessed patient, she continues to complain of back pain and being uncomfortable in bed, will trial Donaldson, I see this in her med list. Her blood pressure continues to be in the 100s, she is undergoing Levophed wean. Still with good urine output. 04/29/20 00:33 Respiratory panel which includes Covid is negative 04/29/20 00:43 Discussed with ICU for admission - Vital Signs Vital signs: Temp Pulse Resp BP Pulse Ox 11 L 115/95 H 04/28/20 23:55 04/28/20 23:55 - Laboratory Results Result Diagrams: 04/28/20 18:35 04/28/20 23:47 Laboratory Results Interpreted: 04/28/20 04/28/20 04/28/20 18:35 18:35 18:35 WBC 52.5 H* RBC 3.44 L Hgb 8.6 L Hct 27.6 L MCH 25.1 L MCHC 31.4 L RDW 16.7 H Plt Count 629 H Seg Neuts % (Manual) 86 H Band Neutrophils % 2 L Lymphocytes % (Manual) 3 L Abs Neuts (Manual) 46.2 H Abs Monocytes (Manual) 4.7 H Sodium 121.0 L Potassium 6.8 H* Chloride 90 L Carbon Dioxide 5 L* Anion Gap 26 H BUN 100 H Creatinine 4.28 H Est GFR ( Amer) 12 L Est GFR (MDRD) Non-Af 10 L Glucose Lactic Acid 5.1 H Calcium 6.9 L* AST 41 H Alkaline Phosphatase 144 H Creatine Kinase 272 H Total Protein 5.1 L Albumin 2.4 L Urine Protein Urine Blood Ur Leukocyte Esterase 04/28/20 04/28/20 04/28/20 20:50 23:47 23:47 WBC RBC Hgb Hct MCH MCHC RDW Plt Count Seg Neuts % (Manual) Band Neutrophils % Lymphocytes % (Manual) Abs Neuts (Manual) Abs Monocytes (Manual) Sodium 119.7 L* Potassium Chloride 90 L Carbon Dioxide 12 L Anion Gap BUN 78 H D Creatinine 2.88 H Est GFR ( Amer) 19 L Est GFR (MDRD) Non-Af 16 L Glucose 200 H Lactic Acid 3.5 H Calcium 7.1 L AST Alkaline Phosphatase Creatine Kinase Total Protein Albumin Urine Protein 100 H Urine Blood MODERATE H Ur Leukocyte Esterase MODERATE H Critical Laboratory Results Reviewed: Yes Attending or Supervising Physician who Reviewed Labs: SANTOS JEAN - Radiology Results Critical Radiology Results Reviewed: No Critical Results - EKG Interpretation by Me Additional EKG results interpreted by me: EKG is interpreted by me. Sinus rhythm, rate 83. First-degree block with CT interval 256. Narrow QRS, QTC within normal limits. Low voltage. Nonspecific ST abnormalities seen on previous EKG. No STEMI. Procedures - Central Line Right Internal jugular Consent obtained: Yes Central line pre-insertion: Sterile PPE donned, Chloraprep applied, Sterile drapes applied Central line size (Fr.): 7 Central line lumen type: Triple Anesthetic type: 1% Lidocaine mL's of anesthesia: 3 Ultrasound guided: Yes Line secured with sutures: Yes Central line post-insertion: Blood return from lumens, Biopatch applied, Sutured, Sterile dressing applied, Position confirmed w/ CXR Number of attempts: 1 Complications: No Critical Care Note - Critical Care Note Total time excluding time spent on procedures (mins): 120 - Critical care time related to management of septic shock, multiple infections, multiple electrolyte abnormalities, multiple reassessments and coronation of care. Discharge - Discharge Clinical Impression: Septic shock, UTI (urinary tract infection) with pyuria, RAMANA (acute kidney injury), Hyperkalemia, Hypocalcemia, Hyponatremia, Metabolic acidosis CAP (community acquired pneumonia) Qualifiers: Laterality: left Lung location: unspecified part of lung Qualified Code(s): J18.9 - Pneumonia, unspecified organism Disposition: ADMITTED INPATIENT Unit Admitted: ICU
[2020-04-28] MEDS ORDERED: PIPERACILLIN/TAZOBACTAM 3.375 GM VIAL IV ONE ×2 (18:31→22:00)
--- NOTE | 2020-04-28 19:05 | RADIOLOGY REPORT (SQ) ---
EXAM DESCRIPTION: CHEST SINGLE VIEW IMAGES COMPLETED DATE/TIME: 04/28/2020 6:56 pm REASON FOR STUDY: eval consolidation COMPARISON: 02/16/2020 EXAM PARAMETERS: NUMBER OF VIEWS: One view. TECHNIQUE: Single frontal radiographic view of the chest acquired. RADIATION DOSE: NA LIMITATIONS: None. FINDINGS: LUNGS AND PLEURA: Fairly dense perihilar opacification on the left. MEDIASTINUM AND HILAR STRUCTURES: Hiatal hernia. HEART AND VASCULAR STRUCTURES: Heart normal in size. Normal vasculature. BONES: No acute findings. HARDWARE: Neurostimulator electrodes in the thoracic spine. OTHER: No other significant finding. IMPRESSION: Cannot exclude fairly dense perihilar consolidation on the left. Cannot exclude perihil ar mass, except that this is not seen on the prior study from February. Hiatal hernia. TECHNICAL DOCUMENTATION: JOB ID: [id number] 2010 [employer]- All Rights Reserved Reading location - IP/workstation name: [email or web address]
[2020-04-28 19:09] LABS: HEMATOCRIT 27.6 % (36.0-47.0); HEMOGLOBIN 8.6 g/dL (12.0-15.5); MEAN CORPUSCULAR HEMOGLOBIN 25.1 pg (27.0-33.4); MEAN CORPUSCULAR HGB CONC 31.4 g/dL (32.0-36.0); MEAN CORPUSCULAR VOLUME 80 fl (80-97); RED BLOOD COUNT 3.44 10^6/uL (3.72-5.28); RED CELL DISTRIBUTION WIDTH 16.7 % (11.5-14.0)
[2020-04-28 19:19] LABS: ALBUMIN 2.4 g/dL (3.5-5.0); ALKALINE PHOSPHATASE 144 U/L (38-126); ASPARTATE AMINO TRANSFERASE 41 U/L (14-36); BILIRUBIN,DIRECT 0.4 mg/dL (0.0-0.4); BILIRUBIN,TOTAL 0.4 mg/dL (0.2-1.3); BLOOD UREA NITROGEN 100 mg/dL (7-20); CREATINE KINASE 272 U/L (30-135); GLUCOSE 79 mg/dL (75-110); TOTAL PROTEIN 5.1 g/dL (6.3-8.2)
[2020-04-28 19:20] LABS: CHLORIDE 90 mmol/L (98-107)
[2020-04-28 19:23] LABS: ANION GAP 26 (5-19)
[2020-04-28 19:25] LABS: CALCIUM 6.9 mg/dL (8.4-10.2)
[2020-04-28 19:26] LABS: CARBON DIOXIDE 5 mmol/L (22-30); POTASSIUM 6.8 mmol/L (3.6-5.0)
[2020-04-28 19:27] LABS: ABSOLUTE LYMPHOCYTES# (MANUAL) 1.6 10^3/uL (0.5-4.7); ABSOLUTE MONOCYTES # (MANUAL) 4.7 10^3/uL (0.1-1.4); BAND NEUTROPHILS % (MANUAL) 2 % (3-5); BASOPHILS % (MANUAL) 0 % (0-2); EOSINOPHILS % (MANUAL) 0 % (0-6); LYMPHOCYTES % (MANUAL) 3 % (13-45); MONOCYTES % (MANUAL) 9 % (3-13); SEGMENTED NEUTROPHILS % (MAN) 86 % (42-78); TOTAL CELLS COUNTED 100
[2020-04-28 19:28] LABS: PLATELET CLUMPS PC; PLATELET COMMENT INCREASED
[2020-04-28] MEDS ORDERED: CALCIUM GLUCONATE 1000 MG/10 ML INJ IV ONE ×2 (19:29→22:00)
[2020-04-28] MEDS ORDERED: DEXTROSE 5%-WATER 1000 ML 1,000 ML with SODIUM BICARBONATE 150 MEQ IV PRN ×2 (19:37)
[2020-04-28 19:42] LABS: ANISOCYTOSIS 2+; BURR CELLS 2+; HYPOCHROMASIA SLIGHT; POIKILOCYTOSIS 1+
[2020-04-28 19:43] LABS: PLATELET COUNT 629 10^3/uL (150-450)
[2020-04-28 19:44] LABS: WHITE BLOOD COUNT 52.5 10^3/uL (4.0-10.5)
[2020-04-28] MEDS ORDERED: RINGERS SOLUTION,LACTATED 1,000 ML IV ONE ×2 (19:44→22:36)
[2020-04-28] MEDS ORDERED: LINEZOLID 600 MG/300 ML RTUPB IV ONE (20:00)
[2020-04-28] MEDS ORDERED: NOREPINEPHRINE BITARTRATE INJ/PF 4 MG/4 ML SDV IV ONE (21:04)
[2020-04-28] MEDS: RINGERS SOLUTION,LACTATED 1,000 ML IV PRN ×2 (21:15→22:27)
[2020-04-28 21:21] LABS: APPEARANCE,URINE TURBID; BILIRUBIN,URINE NEGATIVE (NEGATIVE); COLOR,URINE YELLOW; GLUCOSE, URINE NEGATIVE (NEGATIVE); KETONES,URINE NEGATIVE (NEGATIVE); LEUKOCYTE ESTERASE,URINE MODERATE (NEGATIVE); NITRITE,URINE NEGATIVE (NEGATIVE); PROTEIN,URINE 100 mg/dL (NEGATIVE); URINE SPECIFIC GRAVITY 1.014; UROBILINOGEN,URINE NEGATIVE mg/dL (<2.0)
--- NOTE | 2020-04-28 21:47 | RADIOLOGY REPORT (SQ) ---
EXAM DESCRIPTION: CHEST SINGLE VIEW 04/28/2020 8:51 PM ELECTRIC NEEDLE SPECIALIST CLINICAL HISTORY: 79 years Female, CVC placement; ; COMPARISON: Prior study from 04/28/2020 FINDINGS: Interval effacement of right IJ approach central venous catheter with its tip located in the SVC. Spinal stimulator device leads project over the mediastinum. Cardiac and mediastinal contours are stable. Confluent left mid to lower lung zone opacity is evident. Right lung is overall clear. No pneumothorax or large pleural effusion. Postsurgical changes are evident within the lumbar spine. Hiatal hernia. IMPRESSION: Confluent left mid to lower lung zone opacity. Consider atelectasis or pneumonia to include aspiration. Recommend follow-up to clearing or definitive assessment with CT. Right IJ approach central venous catheter tip is located within the SVC.
[2020-04-28] MEDS ORDERED: CALCIUM GLUCONATE 1 GM/NS 50 ML RTU IV ONE (22:00)
[2020-04-28] MEDS ORDERED: ACETAMINOPHEN 325 MG TABLET PO ONE (22:36)
[2020-04-28] MEDS ORDERED: SODIUM BICARBONATE 8.4% INJ 50 MEQ/50 ML DISP.SYRIN ONE (22:55)
--- NOTE | 2020-04-28 23:38 | EKG REPORT ---
SEVERITY:- ABNORMAL ECG - SINUS RHYTHM FIRST DEGREE AV BLOCK BORDERLINE LEFT AXIS DEVIATION LOW VOLTAGE THROUGHOUT BORDERLINE R WAVE PROGRESSION, ANTERIOR LEADS NONSPECIFIC T ABNORMALITIES, LATERAL LEADS : Confirmed by: Bebe Castillo MD 28-Apr-2020 23:38:00
[2020-04-29 00:12] LABS: ANION GAP 18 (5-19); CALCIUM 7.1 mg/dL (8.4-10.2); CARBON DIOXIDE 12 mmol/L (22-30); CHLORIDE 90 mmol/L (98-107); GLUCOSE 200 mg/dL (75-110)
[2020-04-29 00:24] LABS: BLOOD UREA NITROGEN 78 mg/dL (7-20)
[2020-04-29] MEDS ORDERED: HYDROCODONE/ACETAMINOPHEN 5-325 MG TABLET PO ONE (00:31)
[2020-04-29] MEDS ORDERED: DEXTROSE 50%-WATER 25 GM/50 ML DISP.SYRIN IV PRN ×4 (01:28→01:37)
[2020-04-29] MEDS ORDERED: DEXTROSE 40% GEL 15 GM TUBE PO PRN ×4 (01:28→01:37)
[2020-04-29] MEDS ORDERED: GLUCAGON,HUMAN RECOMB 1 MG INJ SUBCUT PRN (01:28)
[2020-04-29] MEDS ORDERED: ONDANSETRON HCL INJ/PF 4 MG/2 ML SDV IV PRN (01:28)
[2020-04-29] MEDS ORDERED: ACETAMINOPHEN 325 MG TABLET PO PRN (01:28)
[2020-04-29] MEDS ORDERED: GLUCAGON,HUMAN RECOMB 1 MG INJ IM PRN (01:37)
--- NOTE | 2020-04-29 02:09 | CRITICAL CARE ADMISSION REPORT ---
HPI Date:: 04/29/20 Time:: 01:53 Reason for ICU Reason:: sepsis Admission Date/Time & PCP: Admission Date/Time: 04/29/20 01:11 Primary Care Provider: FABIAN BLISS MD Admitted to Dr. Heriberto sethi MD. HPI: 79 year old female who presented to the ED tonight by EMS. Per ER records patient has no PO intake for 4 daysand has had diarrhea per home health nurse. The family reports patient is nrmally alert oriented x 4 but has become increasingly confused. Per EMS report upon arival the patient was hypotensive and did not respond to a fluid bolus and lovephed was started per EMS. The patient was seen and evaluated y the ED provider and was found to be hypotensive and was given a total of 4 liters lactated ringers with improvement in BP. The patient was also found to be in ARF, hyponatremic, and hyperkalemic. The chest XRAY revealed left pneumonia as well. Repeat labs showed improvement of her ARF and hyperkalemia. The patients mentation improved as well. Critical care was consulted for admission and management of this patient. - Diagnosis/Plan (1) RAMANA (acute kidney injury) Is this a current diagnosis for this admission?: Yes (2) CAP (community acquired pneumonia) Qualifiers: Laterality: left Lung location: unspecified part of lung Qualified Code(s): J18.9 - Pneumonia, unspecified organism Is this a current diagnosis for this admission?: Yes (3) Hyperkalemia Is this a current diagnosis for this admission?: Yes (4) Hypocalcemia Is this a current diagnosis for this admission?: Yes (5) Hyponatremia Is this a current diagnosis for this admission?: Yes (7) Septic shock Is this a current diagnosis for this admission?: Yes (8) Urinary tract infection with pyuria Is this a current diagnosis for this admission?: Yes Past Medical History Cardiac Medical History: Reports: Hyperlipidema, Hypertension - on meds Denies: Coronary Artery Disease, Myocardial Infarction Pulmonary Medical History: Denies: Asthma, Bronchitis, Chronic Obstructive Pulmonary Disease (COPD), Intubation, Pneumonia, Respiratory Failure, Sleep Apnea, Tuberculosis EENT Medical History: Reports: None Neurological Medical History: Reports: Other - 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 Denies: Seizures Endocrine Medical History: Denies: Diabetes Mellitus Type 1, Diabetes Mellitus Type 2, Hyperthyroidism, Hypothyroidism Malignancy Medical History: Reports: None GI Medical History: Denies: Cirrhosis, Crohn's Disease, Hepatitis, Ulcerative Colitis Musculoskeltal Medical History: Reports: Arthritis - back, hips Denies: Gout Skin Medical History: Denies: Eczema, Psoriasis Psychiatric Medical History: Denies: Depression Hematology: Denies: Anemia, Bleeding Tendencies Past Surgical History Past Surgical History: Reports: Hysterectomy, Orthopedic Surgery - Left knee replacement, left shoulder repair Social/Family History - Social History Lives with: Family Smoking Status: Unknown if Ever Smoked Frequency of Alcohol Use: None Hx Recreational Drug Use: No Drugs: None Hx Prescription Drug Abuse: No - Family History Family History: Reviewed & Not Pertinent - Medication/Allergies Home Medications: Lansoprazole 30 mg PO Q6AM 06/30/12 Celecoxib [Celebrex 200 mg Capsule] 200 mg PO DAILY 12/29/15 Atenolol [Tenormin] 25 mg PO DAILY 09/03/19 Levothyroxine Sodium 25 mcg PO Q6AM 09/03/19 Diclofenac Sodium 100 gm TP ASDIR PRN 01/31/20 Hydrocodone/Acetaminophen [[place] 5-325 mg Tablet] 1 tab PO QIDP PRN 01/31/20 Lorazepam [Ativan 0.5 mg Tablet] 0.5 mg PO BID 01/31/20 Pregabalin [Lyrica 75 mg Capsule] 75 mg PO Q12 01/31/20 Quinine Sulfate 324 mg PO DAILY 01/31/20 Sennosides [Senna] 8.6 mg PO DAILYP PRN 01/31/20 Simethicone [Gas-X] 125 mg PO DAILYP PRN 01/31/20 Cefdinir 300 mg PO Q12 5 Days #10 capsule 02/02/20 Hydrocortisone [Hydrocortisone 1% Ointment 28.35 gm] 1 applic TP BID tube 02/02/20 Lubiprostone [Amitiza 8 Mcg Capsule] 1 cap PO BID #14 capsule 02/02/20 Pantot AC/Min Oil/Pet Hy-Phl [Aquaphor W-Jane Heal Oint 50 gm] 1 applic TOP BID tube 02/02/20 Allergies/Adverse Reactions: hydromorphone HCl [From Dilaudid] Allergy (Severe, Verified 01/26/16 09:58) too sleepy lisinopril [Lisinopril] Allergy (Severe, Verified 01/26/16 09:58) heart races Review of Systems Constitutional: PRESENT: as per HPI Eyes: PRESENT: other. ABSENT: as per HPI, visual disturbances Ears: ABSENT: as per HPI, hearing changes, other Nose, Mouth, and Throat: ABSENT: as per HPI, headache(s), mouth pain, sore throat, vertigo, other Breasts: ABSENT: as per HPI, other Cardiovascular: ABSENT: as per HPI, chest pain, dyspnea on exertion, edema, orthropnea, palpitations, other Respiratory: PRESENT: dyspnea Gastrointestinal: PRESENT: abdominal pain, diarrhea Genitourinary: PRESENT: as per HPI, dysuria Musculoskeletal: PRESENT: back pain Integumentary: PRESENT: as per HPI Neurological: PRESENT: confusion Endocrine: ABSENT: cold intolerance, heat intolerance Hematologic/Lymphatic: ABSENT: as per HPI, easy bleeding, easy bruising, lymphadenopathy, other Allergic/Immunologic: PRESENT: as per HPI Physical Exam Vital Signs: Temp Pulse Resp BP Pulse Ox 11 L 115/95 H 04/28/20 23:55 04/28/20 23:55 Intake & Output 04/27/20 04/28/20 04/29/20 06:59 06:59 06:59 Intake Total 4450 Balance 4450 General appearance: PRESENT: mild distress, well-developed, well-nourished Head exam: PRESENT: atraumatic, normocephalic Eye exam: PRESENT: conjunctiva pale, PERRLA Ear exam: PRESENT: normal external ear exam Mouth exam: PRESENT: dry mucosa, tongue midline Throat exam: ABSENT: post pharyngeal erythema, tonsillar erythema, tonsillar exudate, tonsillogmegaly, other Neck exam: ABSENT: carotid bruit, full ROM, JVD, lymphadenopathy, meningismus, tenderness, thyromegaly, tracheal deviation, tracheostomy, other Respiratory exam: PRESENT: decreased breath sounds Cardiovascular exam: PRESENT: +S1, +S2 Pulses: PRESENT: +2 pedal pulses bilateral Vascular exam: PRESENT: pallor GI/Abdominal exam: PRESENT: diminished bowel sounds, soft, tenderness Rectal exam: PRESENT: deferred Gentrourinary exam: PRESENT: indwelling catheter, other - pyuria Extremities exam: PRESENT: full ROM Laboratory/Radiographs Laboratory Results: 04/28/20 18:35 04/28/20 23:47 04/28/20 04/28/20 04/28/20 18:35 18:35 18:35 WBC 52.5 H* RBC 3.44 L Hgb 8.6 L Hct 27.6 L MCV 80 MCH 25.1 L MCHC 31.4 L RDW 16.7 H Plt Count 629 H Seg Neutrophils % Not Reportable Sodium 121.0 L Potassium 6.8 H* Chloride 90 L Carbon Dioxide 5 L* Anion Gap 26 H BUN 100 H Creatinine 4.28 H Est GFR ( Amer) 12 L Glucose 79 Lactic Acid 5.1 H Calcium 6.9 L* Total Bilirubin 0.4 AST 41 H Alkaline Phosphatase 144 H Total Protein 5.1 L Albumin 2.4 L Urine Color Urine Appearance Urine pH Ur Specific [place] Urine Protein Urine Glucose (UA) Urine Ketones Urine Blood Urine Nitrite Ur Leukocyte Esterase Urine WBC (Auto) Urine RBC (Auto) 04/28/20 04/28/20 04/28/20 20:50 23:47 23:47 WBC RBC Hgb Hct MCV MCH MCHC RDW Plt Count Seg Neutrophils % Sodium 119.7 L* Potassium 5.0 D Chloride 90 L Carbon Dioxide 12 L Anion Gap 18 BUN 78 H D Creatinine 2.88 H Est GFR ( Amer) 19 L Glucose 200 H Lactic Acid 3.5 H Calcium 7.1 L Total Bilirubin AST Alkaline Phosphatase Total Protein Albumin Urine Color YELLOW Urine Appearance TURBID Urine pH 5.0 Ur Specific [place] 1.014 Urine Protein 100 H Urine Glucose (UA) NEGATIVE Urine Ketones NEGATIVE Urine Blood MODERATE H Urine Nitrite NEGATIVE Ur Leukocyte Esterase MODERATE H Urine WBC (Auto) >182 Urine RBC (Auto) >182 04/28/20 18:35 Creatine Kinase 272 H Impressions: Chest X-Ray 04/28/20 20:51 IMPRESSION: Confluent left mid to lower lung zone opacity. Consider atelectasis or pneumonia to include aspiration. Recommend follow-up to clearing or definitive assessment with CT. Right IJ approach central venous catheter tip is located within the SVC. Critical Time Critical Time (minutes): 55 -: The care of a critically ill patient is dynamic. This note represents a static moment in the admission process. Orders and treatments may be given simultaneously and urgently, and time is not insurance healthcare representative of the treatment process. This patient requires Critical Care secondary to life threatening organ or limb dysfunction. Without Critical Care services, the patient is at risk for increased mortality and morbidity.
[2020-04-29] MEDS: FAMOTIDINE INJ/PF 20 MG/2 ML SDV IV SCH ×3 (02:15→22:33)
[2020-04-29] MEDS: ALBUMIN HUMAN 12.5 GM/50 ML RTUINJ IV SCH ×4 (02:18→04:17)
[2020-04-29] MEDS: IPRATROPIUM/ALBUTEROL 0.5-2.5 MG/3 ML AMPUL NEB SCH ×4 (02:20→21:45)
[2020-04-29] MEDS: INSULIN REG, HUMAN 100 UNIT/ML 3 ML VIAL (PYX) SUBCUT SCH ×6 (02:30→22:38)
[2020-04-29] MEDS ORDERED: NOREPINEPHRINE BITARTRATE INJ/PF 4 MG/4 ML SDV IV ONE ×3 (02:34→13:46)
[2020-04-29 02:43] LABS: PHOSPHORUS 6.7 mg/dL (2.5-4.5)
[2020-04-29] MEDS ORDERED: MAGNESIUM SULFATE 4 GM/100 ML RTUPB IV ONE ×2 (02:56→03:34)
[2020-04-29 03:00] LABS: ARTERIAL BLOOD BASE EXCESS -9.3 mmol/L; ARTERIAL BLOOD H2CO3 0.98 mmol/L (1.05-1.35); ARTERIAL BLOOD O2 SATURATION 25.3 % (94-98); ARTERIAL BLOOD PCO2 32.5 mmHg (35-45); ARTERIAL BLOOD PH 7.31 (7.35-7.45)
[2020-04-29 03:02] LABS: ARTERIAL BLOOD FIO2 32%
[2020-04-29] MEDS: DEXTROSE 5%-WATER 250 ML with NOREPINEPHRINE BITARTRATE 4 MG IV PRN ×6 (03:03→19:39)
[2020-04-29 03:10] LABS: ARTERIAL BLOOD PO2 18.5 mmHg (80-100)
[2020-04-29] MEDS ORDERED: ALBUMIN HUMAN 25.0 GM/100 ML RTUINJ IV ONE (03:22)
[2020-04-29] MEDS ORDERED: RINGERS SOLUTION,LACTATED 1,000 ML IV PRN (03:27)
[2020-04-29] MEDS: DEXTROSE 5%-WATER 1000 ML 1,000 ML with SODIUM BICARBONATE 150 MEQ IV PRN ×4 (04:12→16:50)
--- NOTE | 2020-04-29 04:29 | RADIOLOGY REPORT (SQ) ---
CT abdomen and pelvis without contrast on 04/29/2020 at 3:50 AM CLINICAL INDICATION: Generalized abdominal pain TECHNIQUE: Multiple axial images are obtained throughout the abdomen and pelvis without the administration of contrast. This exam was performed according to our departmental dose-optimization program, which includes automated exposure control, adjustment of the mA and/or kV according to patient size and/or use of iterative reconstruction technique. Total DLP is 928.2 mGy*cm. COMPARISON: None FINDINGS: Abdomen: There is left lower lobe airspace disease in the medial left lower lobe consistent with pneumonia. There is a trace left pleural effusion. There is a moderate-sized hiatal hernia. Vascular calcifications are noted. The patient is status post cholecystectomy. There are no renal or ureteral stones and no hydronephrosis. The unenhanced solid abdominal organs are otherwise unremarkable. There is no abdominal adenopathy. There is no free fluid or free air within the abdomen. There are some mildly dilated fluid-filled loops of mid small bowel with decompressed distal ileum consistent with an at least partial small bowel obstruction. Transition point appears to be in the right pelvis most likely related to an adhesion. Pelvis: Small amount of free fluid is noted in the pelvis. The patient is status post hysterectomy. [place] catheter is noted in the bladder. Pelvic portion of the GI tract is otherwise unremarkable. Degenerative and postsurgical changes are noted in the spine. There is grade 2 spondylolisthesis at L5-S1. The patient is status post L2-S1 laminectomies. No acute bony abnormality is noted. IMPRESSION: 1. Findings consistent with likely early or partial small bowel obstruction most likely related to an adhesion in the pelvis. Recommend NG tube placement and surgical consultation. 2. Left lower lobe pneumonia partially imaged. 3. Moderate size hiatal hernia.
[2020-04-29] MEDS: RINGERS SOLUTION,LACTATED 1,000 ML IV PRN ×2 (04:41→16:51)
[2020-04-29] MEDS ORDERED: SODIUM BICARBONATE 8.4% INJ 50 MEQ/50 ML DISP.SYRIN ONE ×2 (04:43→04:45)
[2020-04-29] MEDS ORDERED: PHARMACY COMMUNICATION ORDER MC NR (04:45)
[2020-04-29] MEDS ORDERED: PIPERACILLIN/TAZOBACTAM 3.375 GM VIAL IV ONE (05:22)
[2020-04-29] MEDS: HEPARIN SOD (PORCINE) 5,000 UNIT/ML 1 ML VIAL SUBCUT SCH ×3 (05:29→22:35)
[2020-04-29] MEDS: PIPERACILLIN SODIUM/TAZOBACTAM 3.375 GM in NORMAL SALINE 100 ML IV SCH ×3 (05:34→22:41)
[2020-04-29] MEDS ORDERED: PIPERACILLIN/TAZOBACTAM 3.375 GM VIAL IV PRN (06:00)
[2020-04-29 06:31] LABS: HEMATOCRIT 21.9 % (36.0-47.0); MEAN CORPUSCULAR HGB CONC 32.8 g/dL (32.0-36.0); MEAN CORPUSCULAR VOLUME 79 fl (80-97); PLATELET COUNT 472 10^3/uL (150-450); RED BLOOD COUNT 2.77 10^6/uL (3.72-5.28); RED CELL DISTRIBUTION WIDTH 16.6 % (11.5-14.0); WHITE BLOOD COUNT 26.7 10^3/uL (4.0-10.5)
[2020-04-29 06:46] LABS: HEMOGLOBIN 7.2 g/dL (12.0-15.5)
[2020-04-29 07:01] LABS: ABSOLUTE LYMPHOCYTES# (MANUAL) 3.7 10^3/uL (0.5-4.7); ABSOLUTE MONOCYTES # (MANUAL) 0.5 10^3/uL (0.1-1.4); BAND NEUTROPHILS % (MANUAL) 1 % (3-5); BASOPHILS % (MANUAL) 0 % (0-2); BURR CELLS SLIGHT; EOSINOPHILS % (MANUAL) 0 % (0-6); LYMPHOCYTES % (MANUAL) 14 % (13-45); MONOCYTES % (MANUAL) 2 % (3-13); PLATELET COMMENT INCREASED; POIKILOCYTOSIS SLIGHT; SEGMENTED NEUTROPHILS % (MAN) 83 % (42-78); TOTAL CELLS COUNTED 100
[2020-04-29 07:11] LABS: ALBUMIN 2.5 g/dL (3.5-5.0); ALKALINE PHOSPHATASE 90 U/L (38-126); ASPARTATE AMINO TRANSFERASE 46 U/L (14-36); BILIRUBIN,DIRECT 0.4 mg/dL (0.0-0.4); BILIRUBIN,TOTAL 0.4 mg/dL (0.2-1.3); BLOOD UREA NITROGEN 71 mg/dL (7-20); CALCIUM 7.1 mg/dL (8.4-10.2); GLUCOSE 203 mg/dL (75-110); POTASSIUM 4.7 mmol/L (3.6-5.0); TOTAL PROTEIN 4.4 g/dL (6.3-8.2)
[2020-04-29 07:16] LABS: CARBON DIOXIDE 13 mmol/L (22-30); CHLORIDE 87 mmol/L (98-107)
[2020-04-29 07:30] LABS: ANION GAP 23 (5-19)
[2020-04-29] MEDS ORDERED: NORMAL SALINE 250 ML IV PRN ×2 (07:46)
[2020-04-29] MEDS ORDERED: LINEZOLID 600 MG/300 ML RTUPB IV SCH (10:00)
--- NOTE | 2020-04-29 10:25 | EKG REPORT ---
SEVERITY:- BORDERLINE ECG - SINUS RHYTHM LOW VOLTAGE THROUGHOUT BORDERLINE R WAVE PROGRESSION, ANTERIOR LEADS : Confirmed by: Bebe Castillo MD 29-Apr-2020 10:24:48
[2020-04-29 12:10] LABS: PATH REVIEW PATHOLOGIST REVIEWED
--- NOTE | 2020-04-29 12:24 | PDOC CONSULTATION ---
Consultation Consult Date: 04/29/20 Attending physician:: RHONA RUIZ Provider Consulted: CARLOS SAM Consult reason:: r/o sbo History of Present Illness Admission Date/PCP: 04/29/20 01:11 FABIAN BLISS MD History of Present Illness: ANA FELTON is a 79 year old female8 arrives from home. Per EMS report, patient has not had any p.o. intake for the past 4 days. She is also had diarrhea for the past 4 days, however per the home health nurse her stool was more formed today. Patient is reportedly usually alert and oriented x4 at baseline, today she was only oriented to self. Initial blood pressure on arrival was 60 over palp, they administered 300 mL LR and blood pressure did not improve, therefore they started Levophed at 4 and uptitrated to 6. She is also 88% on room air, increased to 95% with 4L nasal cannula. Her glucose was 90, her lactic was 4. 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 Denies: Seizures Endocrine Medical History: Denies: Diabetes Mellitus Type 1, Diabetes Mellitus Type 2, Hyperthyroidism, Hypothyroidism Malignancy Medical History: Reports: None GI Medical History: Denies: Cirrhosis, Crohn's Disease, Hepatitis, Ulcerative Colitis Musculoskeltal Medical History: Reports: Arthritis - back, hips Denies: Gout Skin Medical History: Denies: Eczema, Psoriasis Psychiatric Medical History: Denies: Depression Hematology: Denies: Anemia, Bleeding Tendencies Past Surgical History Past Surgical History: Reports: Hysterectomy, Orthopedic Surgery - Left knee replacement, left shoulder repair Social History Lives with: Family Smoking Status: Unknown if Ever Smoked Frequency of Alcohol Use: None Hx Recreational Drug Use: No Drugs: None Hx Prescription Drug Abuse: No Family History Family History: Reviewed & Not Pertinent Parental Family History Reviewed: No Children Family History Reviewed: NA Sibling(s) Family History Reviewed.: NA Medication/Allergy Home Medications: Lansoprazole 30 mg PO Q6AM 06/30/12 Celecoxib [Celebrex 200 mg Capsule] 200 mg PO DAILY 12/29/15 Atenolol [Tenormin] 25 mg PO DAILY 09/03/19 Levothyroxine Sodium 25 mcg PO Q6AM 09/03/19 Hydrocodone/Acetaminophen [[place] 5-325 mg Tablet] 1 tab PO QIDP PRN 01/31/20 Cetirizine HCl [Zyrtec] 10 mg PO DAILY 04/29/20 Furosemide [Lasix] 40 mg PO DAILY 04/29/20 Irbesartan 300 mg PO DAILY 04/29/20 Pregabalin 150 mg PO DAILY 04/29/20 Allergies/Adverse Reactions: hydromorphone HCl [From Dilaudid] Allergy (Severe, Verified 01/26/16 09:58) too sleepy lisinopril [Lisinopril] Allergy (Severe, Verified 01/26/16 09:58) heart races Review of Systems ROS unobtainable: Due to mental status Physical Exam Vital Signs: Temp Pulse Resp BP Pulse Ox 98.6 F 77 13 94/58 L 95 04/29/20 09:35 04/29/20 09:11 04/29/20 09:35 04/29/20 09:35 04/29/20 08:01 Intake & Output 04/28/20 04/29/20 04/30/20 06:59 06:59 06:59 Intake Total 6930 Output Total 800 275 Balance 6130 -275 Weight 66.9 kg General appearance: PRESENT: disheveled Head exam: PRESENT: normocephalic Eye exam: PRESENT: EOMI Mouth exam: PRESENT: dry mucosa Teeth exam: PRESENT: edentulous Neck exam: PRESENT: full ROM Respiratory exam: PRESENT: clear to auscultation deja Cardiovascular exam: PRESENT: RRR Pulses: PRESENT: normal femoral pulses, normal dorsalis pedis pul Vascular exam: PRESENT: normal capillary refill Breast: PRESENT: Normal GI/Abdominal exam: PRESENT: diminished bowel sounds, soft Rectal exam: PRESENT: deferred Gentrourinary exam: PRESENT: indwelling catheter Extremities exam: PRESENT: full ROM Musculoskeletal exam: PRESENT: normal inspection Neurological exam: PRESENT: awake, oriented to person Psychiatric exam: PRESENT: appropriate affect Skin exam: PRESENT: dry Results Laboratory Results: 04/29/20 05:30 04/29/20 05:30 04/28/20 04/28/20 04/28/20 18:35 18:35 18:35 WBC 52.5 H* RBC 3.44 L Hgb 8.6 L Hct 27.6 L MCV 80 MCH 25.1 L MCHC 31.4 L RDW 16.7 H Plt Count 629 H Seg Neutrophils % Not Reportable Carbonic Acid HCO3/H2CO3 Ratio ABG pH ABG pCO2 ABG pO2 ABG HCO3 ABG O2 Saturation ABG Base Excess FiO2 Sodium 121.0 L Potassium 6.8 H* Chloride 90 L Carbon Dioxide 5 L* Anion Gap 26 H BUN 100 H Creatinine 4.28 H Est GFR ( Amer) 12 L Glucose 79 Lactic Acid 5.1 H Calcium 6.9 L* Phosphorus Magnesium Total Bilirubin 0.4 AST 41 H Alkaline Phosphatase 144 H Total Protein 5.1 L Albumin 2.4 L Amylase Lipase Urine Color Urine Appearance Urine pH Ur Specific [place] Urine Protein Urine Glucose (UA) Urine Ketones Urine Blood Urine Nitrite Ur Leukocyte Esterase Urine WBC (Auto) Urine RBC (Auto) Blood Type Antibody Screen 04/28/20 04/28/20 04/28/20 20:50 23:47 23:47 WBC RBC Hgb Hct MCV MCH MCHC RDW Plt Count Seg Neutrophils % Carbonic Acid HCO3/H2CO3 Ratio ABG pH ABG pCO2 ABG pO2 ABG HCO3 ABG O2 Saturation ABG Base Excess FiO2 Sodium 119.7 L* Potassium 5.0 D Chloride 90 L Carbon Dioxide 12 L Anion Gap 18 BUN 78 H D Creatinine 2.88 H Est GFR ( Amer) 19 L Glucose 200 H Lactic Acid 3.5 H Calcium 7.1 L Phosphorus Magnesium Total Bilirubin AST Alkaline Phosphatase Total Protein Albumin Amylase Lipase Urine Color YELLOW Urine Appearance TURBID Urine pH 5.0 Ur Specific [place] 1.014 Urine Protein 100 H Urine Glucose (UA) NEGATIVE Urine Ketones NEGATIVE Urine Blood MODERATE H Urine Nitrite NEGATIVE Ur Leukocyte Esterase MODERATE H Urine WBC (Auto) >182 Urine RBC (Auto) >182 Blood Type Antibody Screen 04/29/20 04/29/20 04/29/20 02:02 02:02 02:30 WBC RBC Hgb Hct MCV MCH MCHC RDW Plt Count Seg Neutrophils % Carbonic Acid 0.98 L HCO3/H2CO3 Ratio 16:1 ABG pH 7.31 L ABG pCO2 32.5 L ABG pO2 18.5 L* ABG HCO3 16.0 L ABG O2 Saturation 25.3 L ABG Base Excess -9.3 FiO2 32% Sodium 121.6 L Potassium Chloride Carbon Dioxide Anion Gap BUN Creatinine Est GFR ( Amer) Glucose Lactic Acid Calcium Phosphorus 6.7 H Magnesium 0.7 L* Total Bilirubin AST Alkaline Phosphatase Total Protein Albumin Amylase 226 H Lipase 1588.6 H Urine Color Urine Appearance Urine pH Ur Specific [place] Urine Protein Urine Glucose (UA) Urine Ketones Urine Blood Urine Nitrite Ur Leukocyte Esterase Urine WBC (Auto) Urine RBC (Auto) Blood Type Antibody Screen 04/29/20 04/29/20 04/29/20 05:30 05:30 07:54 WBC 26.7 H RBC 2.77 L Hgb 7.2 L Hct 21.9 L MCV 79 L MCH 26.0 L MCHC 32.8 RDW 16.6 H Plt Count 472 H Seg Neutrophils % Not Reportable Carbonic Acid HCO3/H2CO3 Ratio ABG pH ABG pCO2 ABG pO2 ABG HCO3 ABG O2 Saturation ABG Base Excess FiO2 Sodium 122.5 L Potassium 4.7 Chloride 87 L Carbon Dioxide 13 L Anion Gap 23 H BUN 71 H Creatinine 2.68 H Est GFR ( Amer) 21 L Glucose 203 H Lactic Acid Calcium 7.1 L Phosphorus Magnesium Total Bilirubin 0.4 AST 46 H Alkaline Phosphatase 90 Total Protein 4.4 L Albumin 2.5 L Amylase Lipase Urine Color Urine Appearance Urine pH Ur Specific [place] Urine Protein Urine Glucose (UA) Urine Ketones Urine Blood Urine Nitrite Ur Leukocyte Esterase Urine WBC (Auto) Urine RBC (Auto) Blood Type A POSITIVE Antibody Screen NEGATIVE 04/28/20 04/29/20 04/29/20 18:35 02:02 02:02 Creatine Kinase 272 H CK-MB (CK-2) 13.30 H Troponin I 0.167 04/29/20 07:54 Creatine Kinase CK-MB (CK-2) Troponin I 0.768 Impressions: Chest X-Ray 04/28/20 20:51 IMPRESSION: Confluent left mid to lower lung zone opacity. Consider atelectasis or pneumonia to include aspiration. Recommend follow-up to clearing or definitive assessment with CT. Right IJ approach central venous catheter tip is located within the SVC. Abdomen/Pelvis CT 04/29/20 03:35 IMPRESSION: 1. Findings consistent with likely early or partial small bowel obstruction most likely related to an adhesion in the pelvis. Recommend NG tube placement and surgical consultation. 2. Left lower lobe pneumonia partially imaged. 3. Moderate size hiatal hernia. Assessment & Plan - Plan Summary Plan Summary: Impression gout small bowel obstruction patient has been passing gas and stool in fact having diarrhea. Minimally dilated small bowel loops on the CT scan may be consistent with an ileus secondary to her sepsis related to her pyuria and UTI. Recommend a NG tube placement for control of nausea and vomiting and observation surgery will continue to follow.
[2020-04-29] MEDS: DEXAMETHASONE SOD PHOSPHATE INJ 4 MG/1 ML VIAL IV SCH ×2 (14:10→18:31)
--- NOTE | 2020-04-29 14:35 | RADIOLOGY REPORT (SQ) ---
EXAM DESCRIPTION: KUB/ABDOMEN (SINGLE VIEW) IMAGES COMPLETED DATE/TIME: 04/29/2020 12:54 pm REASON FOR STUDY: Check Placement of NG Tube COMPARISON: None. NUMBER OF VIEWS: One view. TECHNIQUE: Supine radiographic image of the abdomen acquired. LIMITATIONS: None. FINDINGS: BOWEL GAS PATTERN: Normal bowel gas pattern. No dilated loops. CALCIFICATIONS: No suspicious calcifications. SOFT TISSUES: Hiatal hernia. HARDWARE: NG tube is coiled in the herniated portion of the stomach above the diaphragm. Spinal hard vazquez is present. Neurostimulator is seen. Right-sided catheter has its tip near the right atrium. BONES: No acute fracture. No worrisome bone lesions. OTHER: No other significant finding. IMPRESSION: Hiatal hernia. Findings as described. TECHNICAL DOCUMENTATION: JOB ID: [id number] 2010 [employer]- All Rights Reserved Reading location - IP/workstation name: [email or web address]
[2020-04-30] MEDS: DEXAMETHASONE SOD PHOSPHATE INJ 4 MG/1 ML VIAL IV SCH ×4 (01:06→18:10)
[2020-04-30] MEDS: DEXTROSE 5%-WATER 250 ML with NOREPINEPHRINE BITARTRATE 4 MG IV PRN ×8 (01:13→18:56)
[2020-04-30] MEDS: IPRATROPIUM/ALBUTEROL 0.5-2.5 MG/3 ML AMPUL NEB SCH ×4 (02:01→19:29)
[2020-04-30] MEDS: INSULIN REG, HUMAN 100 UNIT/ML 3 ML VIAL (PYX) SUBCUT SCH ×6 (02:48→22:08)
[2020-04-30] MEDS: RINGERS SOLUTION,LACTATED 1,000 ML IV PRN ×3 (02:52→19:51)
[2020-04-30] MEDS: DEXTROSE 5%-WATER 1000 ML 1,000 ML with SODIUM BICARBONATE 150 MEQ IV PRN ×6 (02:52→22:35)
[2020-04-30] MEDS ORDERED: PIPERACILLIN/TAZOBACTAM 3.375 GM VIAL IV ONE (06:14)
[2020-04-30] MEDS: HEPARIN SOD (PORCINE) 5,000 UNIT/ML 1 ML VIAL SUBCUT SCH ×3 (06:33→22:10)
[2020-04-30] MEDS: PIPERACILLIN SODIUM/TAZOBACTAM 3.375 GM in NORMAL SALINE 100 ML IV SCH ×3 (06:34→22:09)
[2020-04-30 08:02] LABS: HEMATOCRIT 30.8 % (36.0-47.0); MEAN CORPUSCULAR HEMOGLOBIN 28.1 pg (27.0-33.4); MEAN CORPUSCULAR HGB CONC 34.6 g/dL (32.0-36.0); MEAN CORPUSCULAR VOLUME 81 fl (80-97); PLATELET COUNT 318 10^3/uL (150-450); RED CELL DISTRIBUTION WIDTH 16.8 % (11.5-14.0)
[2020-04-30 08:06] LABS: ALBUMIN 2.1 g/dL (3.5-5.0); ALKALINE PHOSPHATASE 107 U/L (38-126); ANION GAP 17 (5-19); ASPARTATE AMINO TRANSFERASE 47 U/L (14-36); BILIRUBIN,DIRECT 0.5 mg/dL (0.0-0.4); BILIRUBIN,TOTAL 0.8 mg/dL (0.2-1.3); BLOOD UREA NITROGEN 62 mg/dL (7-20); CARBON DIOXIDE 22 mmol/L (22-30); CHLORIDE 82 mmol/L (98-107); GLUCOSE 228 mg/dL (75-110); POTASSIUM 3.7 mmol/L (3.6-5.0); TOTAL PROTEIN 4.2 g/dL (6.3-8.2)
[2020-04-30 08:13] LABS: HEMOGLOBIN 10.7 g/dL (12.0-15.5)
[2020-04-30 08:17] LABS: ABSOLUTE MONOCYTES # (MANUAL) 0.3 10^3/uL (0.1-1.4); BAND NEUTROPHILS % (MANUAL) 5 % (3-5); BASOPHILS % (MANUAL) 0 % (0-2); EOSINOPHILS % (MANUAL) 0 % (0-6); LYMPHOCYTES % (MANUAL) 3 % (13-45); MONOCYTES % (MANUAL) 1 % (3-13); SEGMENTED NEUTROPHILS % (MAN) 91 % (42-78); TOTAL CELLS COUNTED 100
[2020-04-30 08:18] LABS: ANISOCYTOSIS 1+; PLATELET COMMENT ADEQUATE; PLATELET LARGE PRESENT; POLYCHROMASIA SLIGHT
[2020-04-30 08:21] LABS: CALCIUM 6.2 mg/dL (8.4-10.2)
[2020-04-30 08:22] LABS: FREE T4 (FREE THYROXINE) 1.78 ng/dL (0.78-2.19)
--- NOTE | 2020-04-30 08:33 | EKG REPORT ---
SEVERITY:- ABNORMAL ECG - SINUS TACHYCARDIA ANTERIOR INFARCT, ? Acute ? Recent BORDERLINE T ABNORMALITIES, INFERIOR LEADS : Confirmed by: Bebe Castillo MD 30-Apr-2020 08:32:19
[2020-04-30 08:36] LABS: THYROID STIMULATING HORMONE 0.48 uIU/mL (0.47-4.68)
[2020-04-30] MEDS ORDERED: LIDOCAINE 1% INJ-PF (10 MG/ML) 30 ML SDV ONE (10:17)
--- NOTE | 2020-04-30 11:03 | PDOC PROGRESS REPORT ---
Subjective Date:: 04/30/20 Reason For Visit: SEPTIC SHOCK,CAP,UTI,RAMANA,HYPERKALEMIA,HYPOCALCEMIA Patient seen in room 17 emergency department, remains disoriented, nasal cannula oxygen, hemodynamically stable. Right neck central line placed. Henderson catheter draining urine Physical Exam Vital Signs: Temp Pulse Resp BP Pulse Ox 100.1 F 107 H 13 98/69 L 89 L 04/30/20 06:02 04/30/20 02:01 04/30/20 06:02 04/30/20 06:02 04/30/20 03:01 Intake & Output 04/29/20 04/30/20 05/01/20 06:59 06:59 06:59 Intake Total 6930 5512 Output Total 800 1115 Balance 6130 4397 Weight 66.9 kg General appearance: PRESENT: other - Agitated Neck exam: PRESENT: other - The right neck IJ site inspected. Triple-lumen catheter hub far outside of dressing. GI/Abdominal exam: PRESENT: other - The abdomen is examined. Soft not distended no guarding. No peritoneal signs Results Laboratory Results: 04/30/20 07:41 04/30/20 07:41 04/28/20 04/29/20 04/30/20 20:50 07:54 07:41 WBC 34.0 H* RBC 3.80 Hgb 10.7 L D Hct 30.8 L MCV 81 MCH 28.1 MCHC 34.6 RDW 16.8 H Plt Count 318 Seg Neutrophils % Not Reportable Sodium Potassium Chloride Carbon Dioxide Anion Gap BUN Creatinine Est GFR ( Amer) Glucose Calcium Total Bilirubin AST Alkaline Phosphatase Total Protein Albumin TSH Free T4 Urine Color YELLOW Urine Appearance TURBID Urine pH 5.0 Ur Specific [place] 1.014 Urine Protein 100 H Urine Glucose (UA) NEGATIVE Urine Ketones NEGATIVE Urine Blood MODERATE H Urine Nitrite NEGATIVE Ur Leukocyte Esterase MODERATE H Urine WBC (Auto) >182 Urine RBC (Auto) >182 Blood Type A POSITIVE Antibody Screen NEGATIVE 04/30/20 04/30/20 07:41 07:41 WBC RBC Hgb Hct MCV MCH MCHC RDW Plt Count Seg Neutrophils % Sodium 121.2 L Potassium 3.7 Chloride 82 L Carbon Dioxide 22 Anion Gap 17 BUN 62 H Creatinine 1.69 H Est GFR ( Amer) 35 L Glucose 228 H Calcium 6.2 L* Total Bilirubin 0.8 AST 47 H Alkaline Phosphatase 107 Total Protein 4.2 L Albumin 2.1 L TSH 0.48 Free T4 1.78 Urine Color Urine Appearance Urine pH Ur Specific [place] Urine Protein Urine Glucose (UA) Urine Ketones Urine Blood Urine Nitrite Ur Leukocyte Esterase Urine WBC (Auto) Urine RBC (Auto) Blood Type Antibody Screen 04/28/20 21:07 Blood Blood Culture (PCR) - Final 04/28/20 04/29/20 04/29/20 18:35 02:02 02:02 Creatine Kinase 272 H CK-MB (CK-2) 13.30 H Troponin I 0.167 04/29/20 04/29/20 04/29/20 07:54 13:38 21:24 Creatine Kinase CK-MB (CK-2) Troponin I 0.768 1.060 1.490 Impressions: Chest X-Ray 04/28/20 20:51 IMPRESSION: Confluent left mid to lower lung zone opacity. Consider atelectasis or pneumonia to include aspiration. Recommend follow-up to clearing or definitive assessment with CT. Right IJ approach central venous catheter tip is located within the SVC. Abdomen/Pelvis CT 04/29/20 03:35 IMPRESSION: 1. Findings consistent with likely early or partial small bowel obstruction most likely related to an adhesion in the pelvis. Recommend NG tube placement and surgical consultation. 2. Left lower lobe pneumonia partially imaged. 3. Moderate size hiatal hernia. KUB X-Ray 04/29/20 04:41 IMPRESSION: Hiatal hernia. Findings as described. Assessment & Plan - Diagnosis (1) Septic shock Is this a current diagnosis for this admission?: Yes Plan: Impression: Persisting sepsis secondary to urinary tract infection; seriously doubt any acute intra-abdominal pathology quiring surgical intervention Plan: 1. Surgery will sign off; reconsult if clinically indicated 2. Dr. Pena has secured the triple-lumen central venous access catheter to reduce risk of catheter fall out. (2) RAMANA (acute kidney injury) Is this a current diagnosis for this admission?: Yes (3) Metabolic acidosis Is this a current diagnosis for this admission?: Yes (4) Urinary tract infection with pyuria Is this a current diagnosis for this admission?: Yes - Time Anticipated Discharge Disposition: TBD Anticipated Discharge Timeframe: TBD
[2020-04-30] MEDS: FAMOTIDINE INJ/PF 20 MG/2 ML SDV IV SCH ×2 (11:10→22:08)
[2020-04-30] MEDS: CALCIUM GLUC IN NACL, ISO-OSM 1 GM/50 ML RTUPB IV SCH ×2 (12:27→13:16)
[2020-04-30] MEDS ORDERED: NOREPINEPHRINE BITARTRATE INJ/PF 4 MG/4 ML SDV IV ONE (12:35)
--- NOTE | 2020-04-30 14:30 | CDI QUERY ---
CDI Query CDI Review: We are seeking further clarification of documentation to reflect the severity of illness of your patient. Per ED Notes: Initial blood pressure on arrival was 60 over palp, they administered 300 mL LR and blood pressure did not improve, therefore they started Levophed at 4 and uptitrated to 6. She is also 88% on room air, increased to 95% with 4L nasal cannula. Her glucose was 90, her lactic was 4. 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 Extremities are cool. The patient is presenting in shock. Concern for us likely combination of septic and hypovolemic Per Progress Notes: RAMANA (acute kidney injury) Is this a current diagnosis for this admission?: Yes Based on your medical judgement, can you further clarify in the Progress Notes and carry through to the Discharge Summary if the underlying cause of RAMANA was: Acute Tubular Necrosis Acute Cortical Necrosis Acute Glomerulonephritis Pre-Renal Acute Kidney Injury Other condition: (please specify) None of the above /Not applicable Thank you for your consideration. CAROL Hoskins RN Clinical [employer] Worker Physician Advisor [email or web address]
--- NOTE | 2020-04-30 14:56 | PDOC CRITICAL CARE PROG REPORT ---
General Date:: 04/30/20 ICU Day:: 2 Hospital Day:: 2 Resuscitation Status: Do Not Resuscitate Events in the past 12 to 24 Hours:: Still confused. More awake. WBC higher and still on levophed. Review of systems relevant to events:: CV, GI, Neurological Reason for ICU Addmission:: Hypovolemia, possible sepsis, ARF - Medications: Medications reviewed and adjusted accordingly: Yes Vasopressors:: Levophed Sedation:: None Physical Exam Vital Signs: Temp Pulse Resp BP Pulse Ox 100.1 F 107 H 12 101/72 89 L 04/30/20 06:02 04/30/20 02:01 04/30/20 13:01 04/30/20 13:01 04/30/20 03:01 Intake & Output 04/29/20 04/30/20 05/01/20 06:59 06:59 06:59 Intake Total 6930 5512 2237 Output Total 800 1115 680 Balance 6130 4397 1557 Weight 66.9 kg 73.5 kg Weight/Height Weight 73.5 kg Height 5 ft 5 in General appearance: PRESENT: no acute distress Head exam: PRESENT: atraumatic, normocephalic Eye exam: PRESENT: conjunctiva pink, EOMI, PERRLA. ABSENT: scleral icterus Ear exam: PRESENT: normal external ear exam Mouth exam: PRESENT: dry mucosa Respiratory exam: PRESENT: clear to auscultation deja, decreased breath sounds. ABSENT: rales, rhonchi, wheezes Cardiovascular exam: PRESENT: RRR, tachycardia. ABSENT: diastolic murmur, rubs, systolic murmur GI/Abdominal exam: PRESENT: normal bowel sounds, soft. ABSENT: distended, guarding, mass, organolmegaly, rebound, tenderness Rectal exam: PRESENT: deferred Gentrourinary exam: PRESENT: indwelling catheter Extremities exam: PRESENT: full ROM, other - Some muscle wasting from. ABSENT: calf tenderness, clubbing, pedal edema Musculoskeletal exam: PRESENT: normal inspection Neurological exam: PRESENT: altered, other - Confused, hypoactive delirium. Skin exam: PRESENT: dry, intact, warm. ABSENT: cyanosis, rash Tubes/Lines: PRESENT: Central Line Laboratory/Radiographs Laboratory Results: 04/30/20 07:41 04/30/20 07:41 04/28/20 04/30/20 04/30/20 20:50 07:41 07:41 WBC 34.0 H* RBC 3.80 Hgb 10.7 L D Hct 30.8 L MCV 81 MCH 28.1 MCHC 34.6 RDW 16.8 H Plt Count 318 Seg Neutrophils % Not Reportable Sodium 121.2 L Potassium 3.7 Chloride 82 L Carbon Dioxide 22 Anion Gap 17 BUN 62 H Creatinine 1.69 H Est GFR ( Amer) 35 L Glucose 228 H Calcium 6.2 L* Total Bilirubin 0.8 AST 47 H Alkaline Phosphatase 107 Total Protein 4.2 L Albumin 2.1 L TSH Free T4 Urine Color YELLOW Urine Appearance TURBID Urine pH 5.0 Ur Specific [place] 1.014 Urine Protein 100 H Urine Glucose (UA) NEGATIVE Urine Ketones NEGATIVE Urine Blood MODERATE H Urine Nitrite NEGATIVE Ur Leukocyte Esterase MODERATE H Urine WBC (Auto) >182 Urine RBC (Auto) >182 04/30/20 07:41 WBC RBC Hgb Hct MCV MCH MCHC RDW Plt Count Seg Neutrophils % Sodium Potassium Chloride Carbon Dioxide Anion Gap BUN Creatinine Est GFR ( Amer) Glucose Calcium Total Bilirubin AST Alkaline Phosphatase Total Protein Albumin TSH 0.48 Free T4 1.78 Urine Color Urine Appearance Urine pH Ur Specific [place] Urine Protein Urine Glucose (UA) Urine Ketones Urine Blood Urine Nitrite Ur Leukocyte Esterase Urine WBC (Auto) Urine RBC (Auto) 04/28/20 21:07 Blood Blood Culture (PCR) - Final 04/28/20 04/29/20 04/29/20 18:35 02:02 02:02 Creatine Kinase 272 H CK-MB (CK-2) 13.30 H Troponin I 0.167 04/29/20 04/29/20 04/29/20 07:54 13:38 21:24 Creatine Kinase CK-MB (CK-2) Troponin I 0.768 1.060 1.490 04/30/20 11:40 Creatine Kinase CK-MB (CK-2) Troponin I 1.730 Impressions: Chest X-Ray 04/28/20 20:51 IMPRESSION: Confluent left mid to lower lung zone opacity. Consider atelectasis or pneumonia to include aspiration. Recommend follow-up to clearing or definitive assessment with CT. Right IJ approach central venous catheter tip is located within the SVC. Abdomen/Pelvis CT 04/29/20 03:35 IMPRESSION: 1. Findings consistent with likely early or partial small bowel obstruction most likely related to an adhesion in the pelvis. Recommend NG tube placement and surgical consultation. 2. Left lower lobe pneumonia partially imaged. 3. Moderate size hiatal hernia. KUB X-Ray 04/29/20 04:41 IMPRESSION: Hiatal hernia. Findings as described. EKG: ST, possible acute anterior infarct All labs, radiographs, diagnostic studies and EKGs were personally reviewed: Yes In addition, reports of radiographic and diagnostic studies were read: Yes Assessment and Plan - Diagnosis (1) Colitis Is this a current diagnosis for this admission?: Yes Plan: Given her presentation, a viral enteritis was entertained. She has had less diarrhea but her WBC has climbed to 34. UTI covered with Zosyn. Flagyl added for bowel coverage. (2) ARF (acute renal failure) Qualifiers: Acute renal failure type: unspecified Qualified Code(s): N17.9 - Acute kidney failure, unspecified Is this a current diagnosis for this admission?: Yes Plan: It is difficult to pinpoint cause of ARF but hypovolemia is a definite major factor. It has improved with volume but not at baseline (3) Delirium Is this a current diagnosis for this admission?: Yes Plan: She is rather sedate indicating a hypoactive delirium. She is confused but states she is normally oriented. (4) Urinary tract infection with pyuria Is this a current diagnosis for this admission?: Yes Plan: Covered with zosyn (5) SIRS (systemic inflammatory response syndrome) Is this a current diagnosis for this admission?: Yes Plan: She meets criteria for SIRS but SIRS is no longer diagnostic for sepsis. I ndeterminant whether septic v hypovolemic shock. (6) AMI (acute myocardial infarction) Qualifiers: Myocardial infarction type: non-ST elevation myocardial infarction Qualified Code(s): I21.4 - Non-ST elevation (NSTEMI) myocardial infarction Is this a current diagnosis for this admission?: Yes Plan: This is suggested by EKG and elevated troponin. Dr. Stockton to review echo and give opinion. Plan Summary: Continue to volume load. Dr. Stockton to review echo to determine if there is evidence of an AMI Critical Time Critical Time (minutes): 40 Level of Care: ICU Anticipated discharge: Other Anticipated DC Timeframe: Other -: 1. The care of a critical patient is a dynamic process. This note is a represe ntative synopsis but static in nature. The timeframe for treatments given in order is not necessarily the actual time these treatments may have been done. 2. This patient requires critical care secondary to ongoing requirements for therapy not offered or safe outside the critical care environment. Transfer to a lower level of care will result in altered life or limb morbidity and mortality. 3. Multidisciplinary rounds completed. 4. ABCDE bundle addressed.
[2020-04-30] MEDS ORDERED: ACETAMINOPHEN SOLN 325 MG/10.15 ML UDCUP NG PRN (14:58)
[2020-04-30] MEDS ORDERED: DEXTROSE 40% GEL 15 GM TUBE NG PRN ×2 (15:00)
[2020-04-30] MEDS: METRONIDAZOLE 500 MG/NS RTU 500 MG/100 ML RTUPB IV SCH ×2 (15:27→22:06)
[2020-04-30] MEDS ORDERED: ONDANSETRON HCL INJ/PF 4 MG/2 ML SDV IV PRN (15:30)
[2020-04-30] MEDS ORDERED: CALCIUM GLUCONATE 1000 MG/10 ML INJ IV ONE (18:34)
--- NOTE | 2020-04-30 18:40 | XCELERA REPORT ---
[address] [address] Transthoracic Echocardiogram Report Name: ANA FELTON Age: 79 yrs Gender: Female : 01/02/1941 Patient Status: Inpatient Patient Location: [place] [address]^A Study Date: 04/30/2020 11:53 AM Height: 65 in Weight: 147 lb BSA: 1.7 m2 Procedure: A two-dimensional transthoracic echocardiogram with color flow and Doppler was performed. Study Quality: Fair. Reason For Study: Posible AMI History: Acute GA. Ordering Physician: RHONA RUIZ Performed By: Daisy Davila Interpretation Summary The left ventricle is mildly dilated. There is global thinning of the left ventricular gustafson. LV EF is 20% Left ventricular systolic function is severely reduced. LV diastolic function could not be adequately assessed. The IV septum,anteroseptum,the apical and mid lateral,,he inferior gustafson , the apical and mid anterior gustafson are severely hypokinetic to akinetic.Restof the LV gustafson show mild hypokinesis.mid and apical There is no thrombus. Cannot assess ASD,VSD , or PFO. The right ventricle is moderately dilated. The right ventricular systolic function is moderate to severely reduced. Pacer lead in RV and RA Right atrium not well visualized secondary to technical limitations Probably mildly dilated. There is no aortic valvular vegetation. There is no aortic valve stenosis There is aortic sclerosis without aortic stenosis. There is a mild amount of aortic regurgitation There is no tricuspid stenosis. There is a mild to moderate amount of tricuspid regurgitation There is mild pulmonary hypertension by echo RVP is 31 to 36 mm of Hg ,with RA mean of 10 to 15. There is no pulmonic valvular stenosis. There is a mild amount of pulmonic regurgitation The inferior vena cava appeared normal and decreased < 50% with respiration (RAP 10-15 mmHg) No pericardial effusion. There is mild mitral annular calcification. There is mild mitral leaflet calcification. There is no evidence of mitral valve prolapse. There is no vegetation seen on the mitral valve. There is no mitral valve stenosis. There is a trace amount of mitral regurgitation MMode/2D Measurements & Calculations RVDd: 2.4 cm LVIDd: 4.2 cm FS: 9.2 % Ao root diam: 3.0 cm IVSd: 0.73 cm LVIDs: 3.8 cm EDV(Teich): 76.7 ml Ao root area: 7.2 cm2 LVPWd: 0.66 cm ESV(Teich): 61.0 ml EF(Teich): 20.5 % Doppler Measurements & Calculations MV E max yvrose: MV dec slope: Ao V2 max: AI max yvrose: 103.0 cm/sec 852.6 cm/sec2 84.2 cm/sec 280.4 cm/sec MV A max yvrose: MV dec time: Ao max PG: AI max P.5 mmHg 53.8 cm/sec 0.12 sec 2.8 mmHg AI dec slope: MV E/A: 1.9 129.1 cm/sec2 AI P1/2t: 636.4 msec LV V1 max PG: PI end-d yvrose: TR max yvrose: 1.8 mmHg 93.6 cm/sec 229.8 cm/sec LV V1 max: TR max P.4 cm/sec 21.2 mmHg Left Ventricle The left ventricle is mildly dilated. There is global thinning of the left ventricular gustafson. LV EF is 20%. Left ventricular systolic function is severely reduced. LV diastolic function could not be adequately assessed. The IV septum,anteroseptum,the apical and mid lateral,,he inferior gustafson , the apical and mid anterior gustafson are severely hypokinetic to akinetic.Restof the LV gustafson show mild hypokinesis.mid and apical. There is no thrombus. Cannot assess ASD,VSD , or PFO. Right Ventricle The right ventricle is moderately dilated. The right ventricular systolic function is moderate to severely reduced. Pacer lead in RV and RA. Atria Right atrium not well visualized secondary to technical limitations. Probably mildly dilated. Mitral Valve There is mild mitral annular calcification. There is mild mitral leaflet calcification. There is no evidence of mitral valve prolapse. There is no vegetation seen on the mitral valve. There is no mitral valve stenosis. There is a trace amount of mitral regurgitation. Aortic Valve There is no aortic valvular vegetation. There is no aortic valve stenosis. There is aortic sclerosis without aortic stenosis. There is a mild amount of aortic regurgitation. Tricuspid Valve There is no tricuspid stenosis. There is a mild to moderate amount of tricuspid regurgitation. There is mild pulmonary hypertension by echo. RVP is 31 to 36 mm of Hg ,with RA mean of 10 to 15. Pulmonic Valve There is no pulmonic valvular stenosis. There is a mild amount of pulmonic regurgitation. Great Vessels The aortic root is normal size. The inferior vena cava appeared normal and decreased < 50% with respiration (RAP 10-15 mmHg). Effusions No pericardial effusion. : RHONA RUIZ, Bebe
[2020-04-30] MEDS: CALCIUM GLUCONATE 1 GM/NS 50 ML RTU IV SCH ×2 (19:47→20:55)
--- NOTE | 2020-04-30 19:57 | EKG REPORT ---
SEVERITY:- ABNORMAL ECG - SINUS TACHYCARDIA ANTERIOR INFARCT, RECENT BORDERLINE T ABNORMALITIES, INFERIOR LEADS : Confirmed by: Bebe Castillo MD 30-Apr-2020 19:57:09
[2020-05-01] MEDS: DEXAMETHASONE SOD PHOSPHATE INJ 4 MG/1 ML VIAL IV SCH ×4 (00:12→18:34)
[2020-05-01] MEDS: IPRATROPIUM/ALBUTEROL 0.5-2.5 MG/3 ML AMPUL NEB SCH ×4 (01:07→20:51)
[2020-05-01] MEDS: RINGERS SOLUTION,LACTATED 1,000 ML IV PRN (02:11)
[2020-05-01] MEDS: METRONIDAZOLE 500 MG/NS RTU 500 MG/100 ML RTUPB IV SCH ×4 (02:11→21:00)
[2020-05-01] MEDS: INSULIN REG, HUMAN 100 UNIT/ML 3 ML VIAL (PYX) SUBCUT SCH ×6 (02:12→22:22)
[2020-05-01] MEDS: DEXTROSE 5%-WATER 250 ML with NOREPINEPHRINE BITARTRATE 4 MG IV PRN ×2 (04:22)
[2020-05-01 04:31] LABS: HEMOGLOBIN 10.3 g/dL (12.0-15.5); MEAN CORPUSCULAR HEMOGLOBIN 27.8 pg (27.0-33.4); MEAN CORPUSCULAR HGB CONC 34.2 g/dL (32.0-36.0); MEAN CORPUSCULAR VOLUME 81 fl (80-97); PLATELET COUNT 244 10^3/uL (150-450); RED BLOOD COUNT 3.68 10^6/uL (3.72-5.28); RED CELL DISTRIBUTION WIDTH 17.3 % (11.5-14.0)
[2020-05-01 04:52] LABS: ALKALINE PHOSPHATASE 107 U/L (38-126); ANION GAP 14 (5-19); ASPARTATE AMINO TRANSFERASE 43 U/L (14-36); BILIRUBIN,DIRECT 0.5 mg/dL (0.0-0.4); BILIRUBIN,TOTAL 0.6 mg/dL (0.2-1.3); BLOOD UREA NITROGEN 54 mg/dL (7-20); CARBON DIOXIDE 29 mmol/L (22-30); CHLORIDE 80 mmol/L (98-107); GLUCOSE 177 mg/dL (75-110); POTASSIUM 3.1 mmol/L (3.6-5.0)
[2020-05-01 04:55] LABS: ABSOLUTE LYMPHOCYTES# (MANUAL) 1.4 10^3/uL (0.5-4.7); ABSOLUTE MONOCYTES # (MANUAL) 0.3 10^3/uL (0.1-1.4); BASOPHILS % (MANUAL) 0 % (0-2); EOSINOPHILS % (MANUAL) 0 % (0-6); LYMPHOCYTES % (MANUAL) 4 % (13-45); MONOCYTES % (MANUAL) 1 % (3-13); SEGMENTED NEUTROPHILS % (MAN) 95 % (42-78); TOTAL CELLS COUNTED 100
[2020-05-01 04:56] LABS: ANISOCYTOSIS 1+; PLATELET COMMENT ADEQUATE; POLYCHROMASIA SLIGHT; TOXIC GRANULATION 1+; TOXIC VACUOLATION PRESENT
[2020-05-01 04:58] LABS: WHITE BLOOD COUNT 33.9 10^3/uL (4.0-10.5)
[2020-05-01 05:08] LABS: CALCIUM 6.7 mg/dL (8.4-10.2)
[2020-05-01] MEDS ORDERED: POTASSIUM CHLORIDE 10 MEQ TABLET.ER PO ONE (05:50)
[2020-05-01] MEDS ORDERED: RINGERS SOLUTION,LACTATED 1,000 ML with POTASSIUM CHLORIDE 20 MEQ IV PRN ×2 (05:52)
[2020-05-01] MEDS: HEPARIN SOD (PORCINE) 5,000 UNIT/ML 1 ML VIAL SUBCUT SCH ×3 (06:20→22:26)
[2020-05-01] MEDS: MAGNESIUM SULFATE/D5W 1 GM/100 ML RTUPB IV SCH ×5 (06:21→12:03)
[2020-05-01] MEDS: PIPERACILLIN SODIUM/TAZOBACTAM 3.375 GM in NORMAL SALINE 100 ML IV SCH ×3 (06:22→21:57)
[2020-05-01] MEDS: POTASSI CL 20 MEQ/50 ML RIDER 20 MEQ/50 ML RTUPB IV SCH ×4 (07:10→13:10)
[2020-05-01] MEDS ORDERED: VANCOMYCIN HCL 0 MG in DEXTROSE 5%-WATER 250 ML IV NR (09:00)
[2020-05-01] MEDS: FAMOTIDINE INJ/PF 20 MG/2 ML SDV IV SCH ×2 (10:29→22:26)
[2020-05-01] MEDS: MORPHINE SULFATE 10 MG/ML INJ IV PRN ×2 (10:51→13:24)
[2020-05-01] MEDS: VANCOMYCIN HCL 1,250 MG in DEXTROSE 5%-WATER 250 ML IV SCH (11:16)
[2020-05-01] MEDS ORDERED: MORPHINE SULFATE 10 MG/ML INJ IV ONE (14:30)
[2020-05-01] MEDS: POTASSI CL 20 MEQ/NS 1L 1,000 ML IV PRN (16:53)
[2020-05-01] MEDS ORDERED: NALOXONE HCL INJ/PF 0.4 MG/1 ML SDV ONE (17:16)
--- NOTE | 2020-05-01 20:54 | PDOC CRITICAL CARE PROG REPORT ---
General Date:: 05/01/20 ICU Day:: 3 Hospital Day:: 3 Resuscitation Status: Do Not Resuscitate Events in the past 12 to 24 Hours:: Still confused. More awake. WBC higher and still on levophed. 05/01: Afebrile. WBC 33.9. Sodium 123, potassium 3.1, magnesium 1.3. BUN 54, creatinine 1.3. Blood cultures isolating gram-positive cocci in clusters. Urine culture isolated E coli and E faecalis. Review of systems relevant to events:: CV, GI, Neurological Reason for ICU Addmission:: Hypovolemia, possible sepsis, ARF - Medications: Medications reviewed and adjusted accordingly: Yes Vasopressors:: Levophed Physical Exam Vital Signs: Temp Pulse Resp BP Pulse Ox 98.8 F 103 H 16 94/59 L 100 04/30/20 19:00 05/01/20 01:08 05/01/20 07:01 05/01/20 07:01 05/01/20 07:01 Intake & Output 04/30/20 05/01/20 05/02/20 06:59 06:59 06:59 Intake Total 5512 7325 93 Output Total 1115 1830 Balance 4397 5495 93 Weight 66.9 kg 73.5 kg 76.9 kg Weight/Height Weight 76.9 kg Height 1.65 m General appearance: PRESENT: no acute distress, well-developed, well-nourished Head exam: PRESENT: atraumatic, normocephalic Mouth exam: PRESENT: dry mucosa, tongue midline Neck exam: ABSENT: carotid bruit, JVD, lymphadenopathy, thyromegaly Respiratory exam: PRESENT: clear to auscultation deja. ABSENT: rales, rhonchi, wheezes Pulses: PRESENT: normal dorsalis pedis pul GI/Abdominal exam: PRESENT: normal bowel sounds, soft. ABSENT: distended, guarding, mass, organolmegaly, rebound, tenderness Extremities exam: PRESENT: full ROM. ABSENT: calf tenderness, clubbing, pedal edema Neurological exam: PRESENT: awake, reflexes normal, CN II-XII grossly intact. ABSENT: oriented to person, oriented to place, oriented to time, oriented to situation, motor sensory deficit Psychiatric exam: ABSENT: agitated, anxious Laboratory/Radiographs Laboratory Results: 05/01/20 04:06 05/01/20 04:06 04/28/20 05/01/20 05/01/20 20:50 04:06 04:06 WBC 33.9 H* RBC 3.68 L Hgb 10.3 L Hct 30.0 L MCV 81 MCH 27.8 MCHC 34.2 RDW 17.3 H Plt Count 244 Seg Neutrophils % Not Reportable Sodium 123.0 L Potassium 3.1 L Chloride 80 L Carbon Dioxide 29 Anion Gap 14 BUN 54 H Creatinine 1.33 H Est GFR ( Amer) 46 L Glucose 177 H Calcium 6.7 L* Magnesium 1.3 L Total Bilirubin 0.6 AST 43 H Alkaline Phosphatase 107 Total Protein 4.0 L Albumin 2.0 L Urine Color YELLOW Urine Appearance TURBID Urine pH 5.0 Ur Specific [place] 1.014 Urine Protein 100 H Urine Glucose (UA) NEGATIVE Urine Ketones NEGATIVE Urine Blood MODERATE H Urine Nitrite NEGATIVE Ur Leukocyte Esterase MODERATE H Urine WBC (Auto) >182 Urine RBC (Auto) >182 04/28/20 20:50 Catheterized Urine Urine Culture - Final Escherichia Coli Enterococcus Faecalis(Group D) 04/28/20 21:07 Blood Blood Culture (PCR) - Final 04/28/20 04/29/20 04/29/20 18:35 02:02 02:02 Creatine Kinase 272 H CK-MB (CK-2) 13.30 H Troponin I 0.167 04/29/20 04/29/20 04/29/20 07:54 13:38 21:24 Creatine Kinase CK-MB (CK-2) Troponin I 0.768 1.060 1.490 04/30/20 04/30/20 11:40 20:05 Creatine Kinase CK-MB (CK-2) Troponin I 1.730 1.530 Impressions: Chest X-Ray 04/28/20 20:51 IMPRESSION: Confluent left mid to lower lung zone opacity. Consider atelectasis or pneumonia to include aspiration. Recommend follow-up to clearing or definitive assessment with CT. Right IJ approach central venous catheter tip is located within the SVC. Abdomen/Pelvis CT 04/29/20 03:35 IMPRESSION: 1. Findings consistent with likely early or partial small bowel obstruction most likely related to an adhesion in the pelvis. Recommend NG tube placement and surgical consultation. 2. Left lower lobe pneumonia partially imaged. 3. Moderate size hiatal hernia. KUB X-Ray 04/29/20 04:41 IMPRESSION: Hiatal hernia. Findings as described. All labs, radiographs, diagnostic studies and EKGs were personally reviewed: Yes In addition, reports of radiographic and diagnostic studies were read: Yes Assessment and Plan - Diagnosis (1) Septic shock Is this a current diagnosis for this admission?: Yes Plan: * Maintenance IV fluids: NS +20 mEq KCl * Wean norepinephrine as tolerated. (2) CAP (community acquired pneumonia) Qualifiers: Laterality: left Lung location: unspecified part of lung Qualified Code(s): J18.9 - Pneumonia, unspecified organism Is this a current diagnosis for this admission?: Yes Plan: * Currently, on Zosyn/Flagyl. * Add vancomycin for empiric coverage of Enterococcus faecalis. (3) Urinary tract infection with pyuria Is this a current diagnosis for this admission?: Yes Plan: Covered with zosyn (4) RAMANA (acute kidney injury) Is this a current diagnosis for this admission?: Yes (5) Hypomagnesemia Is this a current diagnosis for this admission?: Yes Plan: Replete (6) Hyponatremia Is this a current diagnosis for this admission?: Yes Plan: * Overall, currently a hypovolemic hyponatremia but probably with a component of SIADH secondary to consolidated pneumonia. * NS + 20 mEq KCl @ 75 mL/hr (7) Hypokalemia Is this a current diagnosis for this admission?: Yes Plan: Replete (8) Chronic low back pain Qualifiers: Back pain laterality: bilateral Sciatica presence: without sciatica Qualified Code(s): M54.5 - Low back pain; G89.29 - Other chronic pain Is this a current diagnosis for this admission?: Yes Plan: * Currently, getting morphine 2 mg IV every 3 hours as needed for pain. Nurse reports that the patient is continuing to cry out in pain. Of note, she takes [place] 5/325 4 times daily at home. * Trial of morphine 4 mg IV test dose. Avoid any alteration in mental status. Critical Time Critical Time (minutes): 45 Level of Care: ICU -: 1. The care of a critical patient is a dynamic process. This note is a insurance sales representative synopsis but static in nature. The timeframe for treatments given in order is not necessarily the actual time these treatments may have been done. 2. This patient requires critical care secondary to ongoing requirements for therapy not offered or safe outside the critical care environment. Transfer to a lower level of care will result in altered life or limb morbidity and mortality. 3. Multidisciplinary rounds completed. 4. ABCDE bundle addressed.
[2020-05-01 21:53] LABS: POTASSIUM 4.6 mmol/L (3.6-5.0)
[2020-05-02] MEDS: DEXAMETHASONE SOD PHOSPHATE INJ 4 MG/1 ML VIAL IV SCH ×4 (00:13→18:12)
[2020-05-02] MEDS: IPRATROPIUM/ALBUTEROL 0.5-2.5 MG/3 ML AMPUL NEB SCH ×5 (01:50→21:08)
[2020-05-02] MEDS: INSULIN REG, HUMAN 100 UNIT/ML 3 ML VIAL (PYX) SUBCUT SCH ×6 (02:28→22:31)
[2020-05-02] MEDS: MORPHINE SULFATE 10 MG/ML INJ IV PRN (02:37)
[2020-05-02] MEDS: METRONIDAZOLE 500 MG/NS RTU 500 MG/100 ML RTUPB IV SCH ×4 (03:13→20:43)
[2020-05-02 04:42] LABS: ALKALINE PHOSPHATASE 121 U/L (38-126); ANION GAP 9 (5-19); ASPARTATE AMINO TRANSFERASE 33 U/L (14-36); BILIRUBIN,DIRECT 0.5 mg/dL (0.0-0.4); BILIRUBIN,TOTAL 0.5 mg/dL (0.2-1.3); BLOOD UREA NITROGEN 46 mg/dL (7-20); CARBON DIOXIDE 28 mmol/L (22-30); CHLORIDE 89 mmol/L (98-107); GLUCOSE 122 mg/dL (75-110); POTASSIUM 4.5 mmol/L (3.6-5.0)
[2020-05-02 04:56] LABS: CALCIUM 6.3 mg/dL (8.4-10.2)
[2020-05-02] MEDS: PIPERACILLIN SODIUM/TAZOBACTAM 3.375 GM in NORMAL SALINE 100 ML IV SCH ×3 (05:48→22:39)
[2020-05-02] MEDS: HEPARIN SOD (PORCINE) 5,000 UNIT/ML 1 ML VIAL SUBCUT SCH ×3 (06:02→22:39)
[2020-05-02 06:09] LABS: HEMATOCRIT 31.7 % (36.0-47.0); HEMOGLOBIN 10.7 g/dL (12.0-15.5); MEAN CORPUSCULAR HEMOGLOBIN 27.8 pg (27.0-33.4); MEAN CORPUSCULAR HGB CONC 33.6 g/dL (32.0-36.0); MEAN CORPUSCULAR VOLUME 83 fl (80-97); PLATELET COUNT 150 10^3/uL (150-450); RED BLOOD COUNT 3.83 10^6/uL (3.72-5.28); RED CELL DISTRIBUTION WIDTH 17.2 % (11.5-14.0); WHITE BLOOD COUNT 26.3 10^3/uL (4.0-10.5)
[2020-05-02] MEDS: POTASSI CL 20 MEQ/NS 1L 1,000 ML IV PRN ×2 (06:12→19:30)
[2020-05-02 07:40] LABS: ABSOLUTE LYMPHOCYTES# (MANUAL) 1.3 10^3/uL (0.5-4.7); ABSOLUTE MONOCYTES # (MANUAL) 0.5 10^3/uL (0.1-1.4); BASOPHILS % (MANUAL) 0 % (0-2); EOSINOPHILS % (MANUAL) 0 % (0-6); LYMPHOCYTES % (MANUAL) 5 % (13-45); MONOCYTES % (MANUAL) 2 % (3-13); SEGMENTED NEUTROPHILS % (MAN) 93 % (42-78); TOTAL CELLS COUNTED 100
[2020-05-02 07:42] LABS: ANISOCYTOSIS 1+; OVALOCYTES SLIGHT; PLATELET CLUMPS PRESENT; PLATELET COMMENT ADEQUATE
--- NOTE | 2020-05-02 10:34 | PDOC CRITICAL CARE PROG REPORT ---
General Date:: 05/02/20 Resuscitation Status: Do Not Resuscitate Reason for ICU Addmission:: Hypovolemia, possible sepsis, ARF - Medications: Vasopressors:: No events overnight, off pressors this am. Did not tolerate MS trial yesterday. Physical Exam Vital Signs: Temp Pulse Resp BP Pulse Ox 97.4 F 86 14 117/89 H 96 05/02/20 06:42 05/02/20 08:50 05/02/20 08:50 05/02/20 08:00 05/02/20 08:50 Intake & Output 05/01/20 05/02/20 05/03/20 06:59 06:59 06:59 Intake Total 7325 3889 Output Total 1830 1375 Balance 5495 2514 Weight 73.5 kg 83.2 kg Weight/Height Weight 83.2 kg Height 5 ft 5 in Exam: Resting comfortably Neuro: Opens eyes spont, follows commands with Left, answers yes/no appropriately CV: stable Resp: regular easy resps, clear Abd: soft, NT Ext: mild edema BLE Laboratory/Radiographs Laboratory Results: 05/02/20 05:50 05/02/20 04:15 05/01/20 05/02/20 05/02/20 21:10 04:15 04:15 WBC RBC Hgb Hct MCV MCH MCHC RDW Plt Count Seg Neutrophils % Sodium 126.3 L Potassium 4.6 D 4.5 Chloride 89 L Carbon Dioxide 28 Anion Gap 9 BUN 46 H Creatinine 1.26 H Est GFR ( Amer) 49 L Glucose 122 H Calcium 6.3 L* Magnesium 2.2 2.2 Total Bilirubin 0.5 AST 33 Alkaline Phosphatase 121 Total Protein 4.0 L Albumin 2.0 L 05/02/20 05:50 WBC 26.3 H RBC 3.83 Hgb 10.7 L Hct 31.7 L MCV 83 MCH 27.8 MCHC 33.6 RDW 17.2 H Plt Count 150 Seg Neutrophils % Not Reportable Sodium Potassium Chloride Carbon Dioxide Anion Gap BUN Creatinine Est GFR ( Amer) Glucose Calcium Magnesium Total Bilirubin AST Alkaline Phosphatase Total Protein Albumin 04/30/20 17:45 Blood Blood Culture (PCR) - Final Staphylococcus Species 04/28/20 21:07 Blood Blood Culture (PCR) - Final 04/28/20 21:07 Blood Blood Culture - Final Micrococcus Species 04/28/20 20:50 Catheterized Urine Urine Culture - Final Escherichia Coli Enterococcus Faecalis(Group D) 04/28/20 04/29/20 04/29/20 18:35 02:02 02:02 Creatine Kinase 272 H CK-MB (CK-2) 13.30 H Troponin I 0.167 04/29/20 04/29/20 04/29/20 07:54 13:38 21:24 Creatine Kinase CK-MB (CK-2) Troponin I 0.768 1.060 1.490 04/30/20 04/30/20 11:40 20:05 Creatine Kinase CK-MB (CK-2) Troponin I 1.730 1.530 Impressions: Chest X-Ray 04/28/20 20:51 IMPRESSION: Confluent left mid to lower lung zone opacity. Consider atelectasis or pneumonia to include aspiration. Recommend follow-up to clearing or definitive assessment with CT. Right IJ approach central venous catheter tip is located within the SVC. Abdomen/Pelvis CT 04/29/20 03:35 IMPRESSION: 1. Findings consistent with likely early or partial small bowel obstruction most likely related to an adhesion in the pelvis. Recommend NG tube placement and surgical consultation. 2. Left lower lobe pneumonia partially imaged. 3. Moderate size hiatal hernia. KUB X-Ray 04/29/20 04:41 IMPRESSION: Hiatal hernia. Findings as described. Assessment and Plan - Diagnosis (1) Septic shock due to urinary tract infection Is this a current diagnosis for this admission?: Yes (2) Weakness Is this a current diagnosis for this admission?: Yes Plan Summary: Neuro: arousable, weakly follows commands, minimal verbal. Takes norco at home- but somewhat opiod sensitive as evidenced yesterday with MS CV: off pressors, stable. Improving septic shock- will follow PULM: h/o COPD- on nebulizers FEN: on MIVF, may need TF next 24 hrs. Hyponatremia-improving to 126. Hypocalcemia- will check iCa and replete. Renal: RAMANA- improving overall, Cr 1.26 Heme/ID: Leukocytosis-improving. Blood Cx: Staphylococcus Species, Micrococcus Species. Urine Culture: Escherichia Coli, Enterococcus Faecalis On Vanco until 05/08, Flagyl to 05/07, Zosyn to 05/06 Endo: No hypo/hyperglycemia Critical Time Critical Time (minutes): 30 Level of Care: ICU -: 1. The care of a critical patient is a dynamic process. This note is a veterans service representative synopsis but static in nature. The timeframe for treatments given in order is not necessarily the actual time these treatments may have been done. 2. This patient requires critical care secondary to ongoing requirements for therapy not offered or safe outside the critical care environment. Transfer to a lower level of care will result in altered life or limb morbidity and mortality. 3. Multidisciplinary rounds completed. 4. ABCDE bundle addressed.
[2020-05-02] MEDS: FAMOTIDINE INJ/PF 20 MG/2 ML SDV IV SCH ×2 (10:35→22:39)
[2020-05-02] MEDS: VANCOMYCIN HCL 1,250 MG in DEXTROSE 5%-WATER 250 ML IV SCH (12:05)
[2020-05-02] MEDS ORDERED: CALCIUM CHLORIDE 10% PF/INJ 1000 MG/10 ML SDV IV ONE (12:54)
[2020-05-02] MEDS ORDERED: CALCIUM GLUCONATE 1 GM/NS 50 ML RTU IV ONE (14:00)
--- NOTE | 2020-05-02 21:49 | Progress Note ---
Provider Note Provider Note: This is an 79-year-old female with a history of hypothyroidism, osteoarthritis and chronic low back pain who was admitted to ICU on 04/29 on account of sepsis with septic shock, community-acquired pneumonia, UTI, acute kidney injury, hyperkalemia, hypocalcemia and hyponatremia after she presented with altered mental status. Patient was also reported to have watery diarrhea and had nothing p.o. for 4 days before presentation. On arrival to the ER patient was altered and hypotensive. Labs were significant for a WBC count of 52.5 with left shift, H&H was 8.6/27.6. Sodium was 122, potassium 6.8 and BUN/creatinine was 100/4.28 on arrival. UA had large leukocyte esterase and multiple WBCs per high-power field. Chest x-ray was significant for left mid to lower lung opacity concerning for pneumonia. Patient was aggressively hydrated at the ED and received 4 L of LR. Right IJ access was obtained and patient was started on Levophed. She was also placed on broad-spectrum antibiotics with vancomycin, Zosyn and Flagyl. Over the course of treatment kidney function improved with a BUN/creatinine of 46/1.26, potassium level dropped to 4.5 and sodium was 126 this morning. She has been off of Levophed for more than 24 hours and blood pressure has stayed stable. Patient continues to be altered but is able to follow command and protect her airway. She is deemed to be stable enough to be stepdown to [facility] for further care. Physical examination Vital signs: BP: 116/81, [place]: 94, RR: 16, temp: 97.2, POx: 94% on room air GENERAL APPEARANCE: Is lethargic but arousable with verbal stimuli, follows command, in no acute distress HEENT: Normocephalic and atraumatic. No scleral icterus. Dry oral mucosa NECK: Supple. No JVD CHEST: Symmetric. Nontender to palpation. LUNGS: Has good air entry bilaterally, has crackles in the left lower lung field HEART: Regular rate and rhythm with normal S1 and S2. No murmurs, gallops, or rubs. ABDOMEN: soft, active bowel sounds, no direct or rebound tenderness. No organomegaly detected. EXTREMITIES: No cyanosis, clubbing, or edema. MUSCULOSKELETAL: No deformity, atrophy or swelling noted SKIN: Warm, dry, and well perfused. NEUROLOGIC: Difficult to perform full neurologic exam due to patient's altered mental status but patient is able to follow command. Assessment and plan: 1. Septic shock/resolved 2. Sepsis 3. Community-acquired pneumonia 4. Urinary tract infection 5. Acute kidney injury/improved 6. Hyperkalemia/resolved 7. Hyponatremia/improving 8. Hypocalcemia 9. Acute metabolic encephalopathy At this point patient appears to be hemodynamically stable. Despite interval improvement in here mental status patient still appears lethargic and not at baseline. Continue antibiotics, IV hydration. Patient has not been able to feed well since ICU admission about 4 days back and may need dietary supplements possibly TPN and would consider dietitian consult. Continue monitoring CBC, BMP and follow-up with blood culture/sensitivity and adjust antibiotics accordingly.
[2020-05-02] MEDS ORDERED: RINGERS SOLUTION,LACTATED 1,000 ML IV PRN (21:56)
[2020-05-03] MEDS: DEXAMETHASONE SOD PHOSPHATE INJ 4 MG/1 ML VIAL IV SCH ×2 (01:52→07:06)
[2020-05-03] MEDS: IPRATROPIUM/ALBUTEROL 0.5-2.5 MG/3 ML AMPUL NEB SCH ×4 (02:28→20:45)
[2020-05-03] MEDS: INSULIN REG, HUMAN 100 UNIT/ML 3 ML VIAL (PYX) SUBCUT SCH ×4 (04:35→15:25)
[2020-05-03] MEDS: METRONIDAZOLE 500 MG/NS RTU 500 MG/100 ML RTUPB IV SCH (05:00)
[2020-05-03 05:44] LABS: HEMATOCRIT 31.4 % (36.0-47.0); HEMOGLOBIN 10.6 g/dL (12.0-15.5); MEAN CORPUSCULAR HEMOGLOBIN 28.2 pg (27.0-33.4); MEAN CORPUSCULAR HGB CONC 33.9 g/dL (32.0-36.0); MEAN CORPUSCULAR VOLUME 83 fl (80-97); PLATELET COUNT 152 10^3/uL (150-450); RED BLOOD COUNT 3.78 10^6/uL (3.72-5.28); RED CELL DISTRIBUTION WIDTH 17.5 % (11.5-14.0); WHITE BLOOD COUNT 29.8 10^3/uL (4.0-10.5)
[2020-05-03 05:59] LABS: ABSOLUTE LYMPHOCYTES# (MANUAL) 0.9 10^3/uL (0.5-4.7); ABSOLUTE MONOCYTES # (MANUAL) 0.6 10^3/uL (0.1-1.4); BASOPHILS % (MANUAL) 0 % (0-2); EOSINOPHILS % (MANUAL) 0 % (0-6); LYMPHOCYTES % (MANUAL) 3 % (13-45); MONOCYTES % (MANUAL) 2 % (3-13); NUCLEATED RED BLOOD CELLS 4 /100 WBC (0); SEGMENTED NEUTROPHILS % (MAN) 95 % (42-78); TOTAL CELLS COUNTED 100
[2020-05-03 06:00] LABS: ANISOCYTOSIS 1+; PLATELET COMMENT ADEQUATE; POLYCHROMASIA SLIGHT
[2020-05-03] MEDS: MORPHINE SULFATE 10 MG/ML INJ IV PRN ×2 (06:18→17:14)
[2020-05-03 06:19] LABS: ALBUMIN 2.1 g/dL (3.5-5.0); ALKALINE PHOSPHATASE 137 U/L (38-126); ANION GAP 9 (5-19); ASPARTATE AMINO TRANSFERASE 35 U/L (14-36); BILIRUBIN,DIRECT 0.5 mg/dL (0.0-0.4); BILIRUBIN,TOTAL 0.5 mg/dL (0.2-1.3); BLOOD UREA NITROGEN 40 mg/dL (7-20); CARBON DIOXIDE 26 mmol/L (22-30); CHLORIDE 92 mmol/L (98-107); GLUCOSE 118 mg/dL (75-110); POTASSIUM 4.2 mmol/L (3.6-5.0); TOTAL PROTEIN 4.1 g/dL (6.3-8.2)
[2020-05-03 06:34] LABS: CALCIUM 6.2 mg/dL (8.4-10.2)
[2020-05-03] MEDS: HEPARIN SOD (PORCINE) 5,000 UNIT/ML 1 ML VIAL SUBCUT SCH ×2 (07:06→15:25)
[2020-05-03] MEDS: PIPERACILLIN SODIUM/TAZOBACTAM 3.375 GM in NORMAL SALINE 100 ML IV SCH ×3 (07:07→21:35)
[2020-05-03 08:25] LABS: C DIFFICILE GDH NEGATIVE (NEGATIVE)
[2020-05-03] MEDS ORDERED: CALCIUM GLUCONATE 1000 MG/10 ML INJ IV ONE (09:00)
[2020-05-03] MEDS ORDERED: LEVOTHYROXINE SODIUM INJ/PF 0.1 MG SDV IV SCH (10:00)
--- NOTE | 2020-05-03 10:00 | RADIOLOGY REPORT (SQ) ---
EXAM DESCRIPTION: CHEST SINGLE VIEW IMAGES COMPLETED DATE/TIME: 05/03/2020 9:39 am REASON FOR STUDY: change in o2 sat COMPARISON: 04/28/2020, 02/16/2020, 01/30/2020 EXAM PARAMETERS: NUMBER OF VIEWS: One view. TECHNIQUE: Single frontal radiographic view of the chest acquired. RADIATION DOSE: NA LIMITATIONS: None. FINDINGS: LUNGS AND PLEURA: Improved aeration of the left upper lobe. Persistent perihilar opacitie s (left greater than right). No large pleural effusion or pneumothorax. MEDIASTINUM AND HILAR STRUCTURES: Stable. HEART AND VASCULAR STRUCTURES: Cardiac silhouette is normal in size. BONES: No acute findings. HARDWARE: Right IJ terminates in the region of the superior vena cava. Partially imaged epidural rian rostimulator leads and lumbar fusion hardware. OTHER: No other significant finding. IMPRESSION: 1. Improved aeration of the left upper lobe with persistent bilateral perihilar opaciti es. 2. Right internal jugular vascular access catheter without evidence of complication. TECHNICAL DOCUMENTATION: JOB ID: [id number] 2010 [employer]- All Rights Reserved Reading location - IP/workstation name: [email or web address]
[2020-05-03] MEDS: DEXTROSE 5%-NORMAL SALINE 1,000 ML IV PRN (10:24)
[2020-05-03] MEDS: FAMOTIDINE INJ/PF 20 MG/2 ML SDV IV SCH (10:25)
[2020-05-03] MEDS ORDERED: DOPAMINE HCL/DEXTROSE 5%-WATER 0 MG/0 ML RTUINJ IV ONE (10:53)
[2020-05-03] MEDS ORDERED: LORAZEPAM 1 MG TABLET PO PRN (14:00)
--- NOTE | 2020-05-03 14:01 | PDOC PROGRESS REPORT ---
Subjective Date:: 05/03/20 Subjective:: Patient is still quite altered and not able to give any significant history. Álvaro hernandez is able to let me know that she is not experiencing pain currently. She denies shortness of breath this morning but was noted to be tachypneic. Reason For Visit: SEPTIC SHOCK,CAP,UTI,RAMANA,HYPERKALEMIA,HYPOCALCEMIA Physical Exam Vital Signs: Temp Pulse Resp BP Pulse Ox 98.5 F 97 18 118/90 H 100 05/03/20 03:04 05/03/20 13:17 05/03/20 13:17 05/03/20 03:04 05/03/20 13:17 Intake & Output 05/02/20 05/03/20 05/04/20 06:59 06:59 06:59 Intake Total 3889 1759 Output Total 1375 1625 Balance 2514 134 Weight 83.2 kg 83.2 kg General appearance: PRESENT: cooperative, mild distress Head exam: PRESENT: normocephalic Neck exam: ABSENT: JVD Respiratory exam: PRESENT: crackles - bilateral lung rabago, symmetrical, tachypnea, unlabored. ABSENT: accessory muscle use, wheezes Cardiovascular exam: PRESENT: +S1, +S2, tachycardia. ABSENT: irregular rhythm GI/Abdominal exam: PRESENT: soft. ABSENT: rebound, rigid, tenderness Extremities exam: ABSENT: pedal edema Neurological exam: PRESENT: altered, awake, oriented to person, other - somnolent. confused.. ABSENT: alert, oriented to place, oriented to time, oriented to situation Psychiatric exam: ABSENT: agitated, anxious Focused psych exam: ABSENT: pressured speech Skin exam: ABSENT: jaundice Results Laboratory Results: 05/03/20 05:00 05/03/20 05:00 05/03/20 05/03/20 05:00 05:00 WBC 29.8 H RBC 3.78 Hgb 10.6 L Hct 31.4 L MCV 83 MCH 28.2 MCHC 33.9 RDW 17.5 H Plt Count 152 Seg Neutrophils % Not Reportable Sodium 127.4 L Potassium 4.2 Chloride 92 L Carbon Dioxide 26 Anion Gap 9 BUN 40 H Creatinine 1.17 Est GFR ( Amer) 54 L Glucose 118 H Calcium 6.2 L* Magnesium 1.8 Total Bilirubin 0.5 AST 35 Alkaline Phosphatase 137 H Total Protein 4.1 L Albumin 2.1 L 04/30/20 17:45 Blood Blood Culture (PCR) - Final Staphylococcus Species 04/30/20 17:45 Blood Blood Culture - Final Staphylococcus Epidermidis 04/28/20 04/29/20 04/29/20 18:35 02:02 02:02 Creatine Kinase 272 H CK-MB (CK-2) 13.30 H Troponin I 0.167 04/29/20 04/29/20 04/29/20 07:54 13:38 21:24 Creatine Kinase CK-MB (CK-2) Troponin I 0.768 1.060 1.490 04/30/20 04/30/20 11:40 20:05 Creatine Kinase CK-MB (CK-2) Troponin I 1.730 1.530 Impressions: Abdomen/Pelvis CT 04/29/20 03:35 IMPRESSION: 1. Findings consistent with likely early or partial small bowel obstruction most likely related to an adhesion in the pelvis. Recommend NG tube placement and surgical consultation. 2. Left lower lobe pneumonia partially imaged. 3. Moderate size hiatal hernia. KUB X-Ray 04/29/20 04:41 IMPRESSION: Hiatal hernia. Findings as described. Chest X-Ray 05/03/20 00:00 IMPRESSION: 1. Improved aeration of the left upper lobe with persistent bilateral perihilar opacities. 2. Right internal jugular vascular access catheter without evidence of complication. Assessment and Plan - Diagnosis (1) Acute metabolic encephalopathy Is this a current diagnosis for this admission?: Yes (2) UTI (urinary tract infection) Qualifiers: Urinary tract infection type: site unspecified Hematuria presence: without hematuria Qualified Code(s): N39.0 - Urinary tract infection, site not specified Is this a current diagnosis for this admission?: Yes (3) HFrEF (heart failure with reduced ejection fraction) Is this a current diagnosis for this admission?: Yes (4) Hypotension Qualifiers: Hypotension type: unspecified hypotension type Qualified Code(s): I95.9 - Hypotension, unspecified Is this a current diagnosis for this admission?: Yes (5) CAP (community acquired pneumonia) Qualifiers: Laterality: left Lung location: lower lobe of lung Qualified Code(s): J18.9 - Pneumonia, unspecified organism Is this a current diagnosis for this admission?: Yes (6) RAMANA (acute kidney injury) Is this a current diagnosis for this admission?: Yes (7) Hypocalcemia Is this a current diagnosis for this admission?: Yes (8) Hyponatremia Is this a current diagnosis for this admission?: Yes (9) Septic shock Is this a current diagnosis for this admission?: Yes (10) Debilitated Is this a current diagnosis for this admission?: Yes (11) Chronic, continuous use of opioids Is this a current diagnosis for this admission?: Yes - Plan Summary Summary: Blood pressure was low this morning in the 80s systolic. Improved later.. It was hard to get accurate readings on her pulse oximetry which was noted to be initially low but could be falls due to cold extremities. Notably her echocardiogram shows severe cardiomyopathy with remarkable hypokinesis EF of 20%, mildly elevated RVSP. On exam she is also is in heart failure acute [from septic shock] or acute on chronic with diffuse bilateral crackles and more chronic findings of some swelling in her arms and legs. She received fluids earlier in admission due to initially dehydrated state and septic shock. Currently, she is net +18L in past 4 days in terms of her fluid balance. She is still very altered though she is able to voice some words. I suspect some of her persisting encephalopathy is from low output heart failure. Cold extremities. However, her renal function did improve. Check BNP. Initially planned to initiate dopamine drip. Still on antibiotics IV for Enterococcus/E. coli UTI and left lower lobe pneumonia. 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 He reemphasized that she is a DNR/DNI. He also told me that he is already working with [facility]iative care/hospice program in [place] were in the process of evaluating her. Advance care planning 20mins I subsequently had a prolonged conversation with him about her heart failure, Encephalopathy, debility, limited mobility, the terms of hospice, palliative care, comfort care or full treatment and he states that he wants her to be made hospice. I have contacted our delinquency prevention social worker to look into setting this up for home. We will monitor patient here over the next day or 2 to see if she deteriorates rapidly. She will be on hospice care. We will hold off on dopamine. - Time Time Spent with patient: 25-34 minutes Anticipated Discharge Disposition: Home with Hospice Anticipated Discharge Timeframe: within 36 hours
[2020-05-03] MEDS: VANCOMYCIN HCL 1,250 MG in DEXTROSE 5%-WATER 250 ML IV SCH (15:25)
[2020-05-03] MEDS ORDERED: VANCOMYCIN HCL 1,250 MG in DEXTROSE 5%-WATER 250 ML IV ONE (17:00)
[2020-05-04] MEDS: IPRATROPIUM/ALBUTEROL 0.5-2.5 MG/3 ML AMPUL NEB SCH ×4 (01:38→20:54)
[2020-05-04] MEDS: MORPHINE SULFATE 10 MG/ML INJ IV PRN ×3 (04:14→16:25)
[2020-05-04] MEDS: PIPERACILLIN SODIUM/TAZOBACTAM 3.375 GM in NORMAL SALINE 100 ML IV SCH ×3 (06:07→21:57)
[2020-05-04] MEDS: DEXTROSE 5%-NORMAL SALINE 1,000 ML IV PRN (06:12)
[2020-05-04] MEDS ORDERED: FUROSEMIDE 20 MG TABLET PO SCH (10:00)
[2020-05-04] MEDS ORDERED: CEPHALEXIN 500 MG CAPSULE PO SCH (12:00)
[2020-05-04] MEDS ORDERED: LORAZEPAM INJ 2 MG/1 ML VIAL IV PRN (13:29)
[2020-05-04] MEDS ORDERED: PIPERACILLIN/TAZOBACTAM 3.375 GM VIAL IV SCH (13:30)
--- NOTE | 2020-05-04 13:46 | PDOC PROGRESS REPORT ---
Subjective Date:: 05/04/20 Subjective:: Patient remains very much altered. We did try to see if she was going to be abl e to swallow but she is way too drowsy to even try to engage in food intake. Also primary nurse assessed her swallowing and states she can cannot swallow at all to even tolerate comfort feeds. Reason For Visit: SEPTIC SHOCK,CAP,UTI,RAMANA,HYPERKALEMIA,HYPOCALCEMIA Physical Exam Vital Signs: Temp Pulse Resp BP Pulse Ox 97.8 F 101 H 22 H 100/68 95 05/04/20 08:59 05/04/20 08:11 05/04/20 08:11 05/04/20 07:23 05/04/20 08:11 Intake & Output 05/03/20 05/04/20 05/05/20 06:59 06:59 06:59 Intake Total 1759 990 Output Total 1625 1100 Balance 134 -110 Weight 83.2 kg 83.4 kg General appearance: PRESENT: no acute distress, cooperative Respiratory exam: PRESENT: crackles - Diffuse crackles bilaterally in all lung rabago, symmetrical, tachypnea, unlabored. ABSENT: wheezes Cardiovascular exam: PRESENT: irregular rhythm, +S1, +S2, tachycardia. ABSENT: bradycardia GI/Abdominal exam: PRESENT: soft. ABSENT: rebound, rigid, tenderness Neurological exam: PRESENT: altered - somnolent. Awakens with stimulation and able to answer some questions but then drifts back to sleep shortly after, oriented to person. ABSENT: oriented to place, oriented to time, oriented to situation Results Laboratory Results: 05/03/20 05:00 05/03/20 05:00 05/03/20 06:00 Stool - Stool - Final 04/28/20 20:58 Blood Blood Culture - Final NO GROWTH IN 5 DAYS 04/30/20 17:45 Blood Blood Culture (PCR) - Final Staphylococcus Species 04/30/20 17:45 Blood Blood Culture - Final Staphylococcus Epidermidis 04/28/20 04/29/20 04/29/20 18:35 02:02 02:02 Creatine Kinase 272 H CK-MB (CK-2) 13.30 H Troponin I 0.167 NT-Pro-B Natriuret Pep 04/29/20 04/29/20 04/29/20 07:54 13:38 21:24 Creatine Kinase CK-MB (CK-2) Troponin I 0.768 1.060 1.490 NT-Pro-B Natriuret Pep 04/30/20 04/30/20 05/03/20 11:40 20:05 05:00 Creatine Kinase CK-MB (CK-2) Troponin I 1.730 1.530 NT-Pro-B Natriuret Pep 67313 H Impressions: Abdomen/Pelvis CT 04/29/20 03:35 IMPRESSION: 1. Findings consistent with likely early or partial small bowel obstruction most likely related to an adhesion in the pelvis. Recommend NG tube placement and surgical consultation. 2. Left lower lobe pneumonia partially imaged. 3. Moderate size hiatal hernia. KUB X-Ray 04/29/20 04:41 IMPRESSION: Hiatal hernia. Findings as described. Chest X-Ray 05/03/20 00:00 IMPRESSION: 1. Improved aeration of the left upper lobe with persistent bilateral perihilar opacities. 2. Right internal jugular vascular access catheter without evidence of complication. Assessment and Plan - Diagnosis (1) Acute metabolic encephalopathy Is this a current diagnosis for this admission?: Yes (2) UTI (urinary tract infection) Qualifiers: Urinary tract infection type: site unspecified Hematuria presence: without hematuria Qualified Code(s): N39.0 - Urinary tract infection, site not specified Is this a current diagnosis for this admission?: Yes (3) HFrEF (heart failure with reduced ejection fraction) Is this a current diagnosis for this admission?: Yes (4) Hypotension Qualifiers: Hypotension type: unspecified hypotension type Qualified Code(s): I95.9 - Hypotension, unspecified Is this a current diagnosis for this admission?: Yes (5) CAP (community acquired pneumonia) Qualifiers: Laterality: left Lung location: lower lobe of lung Qualified Code(s): J18.9 - Pneumonia, unspecified organism Is this a current diagnosis for this admission?: Yes (6) RAMANA (acute kidney injury) Is this a current diagnosis for this admission?: Yes (7) Hypocalcemia Is this a current diagnosis for this admission?: Yes (8) Hyponatremia Is this a current diagnosis for this admission?: Yes (9) Septic shock Is this a current diagnosis for this admission?: Yes (10) Debilitated Is this a current diagnosis for this admission?: Yes (11) Chronic, continuous use of opioids Is this a current diagnosis for this admission?: Yes - Plan Summary Summary: This is an 79-year-old female with a history of hypothyroidism, osteoarthritis and chronic low back pain who was admitted to ICU on 04/29 on account of sepsis with septic shock, community-acquired pneumonia, UTI, acute kidney injury, hyperkalemia, hypocalcemia and hyponatremia after she presented with altered mental status. Patient was also reported to have watery diarrhea and had nothing p.o. for 4 days before presentation. On arrival to the ER patient was altered and hypotensive. Labs were significant for a WBC count of 52.5 with left shift, H&H was 8.6/27.6. Sodium was 122, potassium 6.8 and BUN/creatinine was 100/4.28 on arrival. UA had large leukocyte esterase and multiple WBCs per high-power field. Chest x-ray was significant for left mid to lower lung opacity concerning for pneumonia. Patient was aggressively hydrated at the ED and received 4 L of LR. Right IJ access was obtained and patient was started on Levophed. She was also placed on broad-spectrum antibiotics with vancomycin, Zosyn and Flagyl. Over the course of treatment kidney function improved with a BUN/creatinine of 46/1.26, potassium level dropped to 4.5 and sodium was 126 this morning. She has been off of Levophed for more than 24 hours and blood pressure has stayed stable. Patient continues to be altered but is able to follow command and protect her airway. She is deemed to be stable enough to be stepdown to [facility] for further care. 05/03 Blood pressure was low this morning in the 80s systolic. Improved later.. It was hard to get accurate readings on her pulse oximetry which was noted to be initially low but could be falls due to cold extremities. Notably her echocardiogram shows severe cardiomyopathy with remarkable hypokinesis EF of 20%, mildly elevated RVSP. On exam she is also is in heart failure acute [from septic shock] or acute on chronic with diffuse bilateral crackles and more chronic findings of some swelling in her arms and legs. She received fluids earlier in admission due to initially dehydrated state and septic shock from UTI+CAP. Currently, she is net +18L in past 4 days in terms of her fluid balance. She is still very altered though she is able to voice some words. I suspect some of her persisting encephalopathy is from low output heart failure. Cold extremities. However, her renal function did improve. Check BNP. Initially planned to initiate dopamine drip. Still on antibiotics IV for Enterococcus/E. coli UTI and left lower lobe pneumonia. 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 He reemphasized that she is a DNR/DNI. He also told me that he is already working with [facility] care/hospice program in [place] were in the process of evaluating her. Advance care planning 20mins I subsequently had a prolonged conversation with him about her heart failure, Encephalopathy, debility, limited mobility, the terms of hospice, palliative ca re, comfort care or full treatment and he states that he wants her to be made hospice. I have contacted our social science professor to look into setting this up for home. We will monitor patient here over the next day or 2 to see if she deteriorates rapidly. She will be on hospice care. We will hold off on dopamine. 05/04 C/w IV meds. C/w abx for 1 more day to complete tx for PNA and UTI. Blood Cxs growing contaminant. Plan for inpatient hospice. bilingual social worker has discussed with patient's about inpatient hospice facility for placement. IV Lasix to see if this helps her breathing. Continue with as needed IV morphine and Ativan. - Time Time Spent with patient: 15-24 minutes Anticipated Discharge Disposition: Hospice Center Anticipated Discharge Timeframe: when bed available
[2020-05-04] MEDS: METOPROLOL TARTRATE PF/INJ 5 MG/5 ML SDV IV PRN (14:16)
[2020-05-04] MEDS: FUROSEMIDE INJ/PF 20 MG/2 ML SDV IV SCH ×2 (14:16→21:57)
[2020-05-05] MEDS: IPRATROPIUM/ALBUTEROL 0.5-2.5 MG/3 ML AMPUL NEB SCH ×3 (02:05→14:05)
[2020-05-05] MEDS: PIPERACILLIN SODIUM/TAZOBACTAM 3.375 GM in NORMAL SALINE 100 ML IV SCH ×2 (03:51→11:44)
[2020-05-05] MEDS: METOPROLOL TARTRATE PF/INJ 5 MG/5 ML SDV IV PRN (06:07)
[2020-05-05] MEDS: FUROSEMIDE INJ/PF 20 MG/2 ML SDV IV SCH (09:49)
[2020-05-05] MEDS: MORPHINE SULFATE 10 MG/ML INJ IV PRN ×2 (09:49→16:52)
--- NOTE | 2020-05-05 11:25 | PDOC PROGRESS REPORT ---
Subjective Date:: 05/05/20 Subjective:: Awaiting Hospice consult. Family reports pain earlier today. Reason For Visit: SEPTIC SHOCK,CAP,UTI,RAMANA,HYPERKALEMIA,HYPOCALCEMIA Physical Exam Vital Signs: Temp Pulse Resp BP Pulse Ox 98.2 F 114 H 15 100/72 97 05/05/20 08:48 05/05/20 08:09 05/05/20 08:09 05/05/20 07:32 05/05/20 08:09 Intake & Output 05/04/20 05/05/20 05/06/20 06:59 06:59 06:59 Intake Total 990 628 Output Total 1100 2175 Balance -110 -1547 Weight 83.4 kg 88.7 kg Results Laboratory Results: 05/03/20 05:00 05/03/20 05:00 05/03/20 06:00 Stool - Stool - Final 05/03/20 06:00 Stool - Stool Stool Culture - Final C.albicans/C.dubliniensis 04/28/20 04/29/20 04/29/20 18:35 02:02 02:02 Creatine Kinase 272 H CK-MB (CK-2) 13.30 H Troponin I 0.167 NT-Pro-B Natriuret Pep 04/29/20 04/29/20 04/29/20 07:54 13:38 21:24 Creatine Kinase CK-MB (CK-2) Troponin I 0.768 1.060 1.490 NT-Pro-B Natriuret Pep 04/30/20 04/30/20 05/03/20 11:40 20:05 05:00 Creatine Kinase CK-MB (CK-2) Troponin I 1.730 1.530 NT-Pro-B Natriuret Pep 65665 H Impressions: Abdomen/Pelvis CT 04/29/20 03:35 IMPRESSION: 1. Findings consistent with likely early or partial small bowel obstruction most likely related to an adhesion in the pelvis. Recommend NG tube placement and surgical consultation. 2. Left lower lobe pneumonia partially imaged. 3. Moderate size hiatal hernia. KUB X-Ray 04/29/20 04:41 IMPRESSION: Hiatal hernia. Findings as described. Chest X-Ray 05/03/20 00:00 IMPRESSION: 1. Improved aeration of the left upper lobe with persistent deja ateral perihilar opacities. 2. Right internal jugular vascular access catheter without evidence of complication. Assessment and Plan - Diagnosis (1) Acute metabolic encephalopathy Is this a current diagnosis for this admission?: Yes (2) UTI (urinary tract infection) Qualifiers: Urinary tract infection type: site unspecified Hematuria presence: without hematuria Qualified Code(s): N39.0 - Urinary tract infection, site not specified Is this a current diagnosis for this admission?: Yes (3) HFrEF (heart failure with reduced ejection fraction) Is this a current diagnosis for this admission?: Yes (4) CAP (community acquired pneumonia) Qualifiers: Laterality: left Lung location: lower lobe of lung Qualified Code(s): J18.9 - Pneumonia, unspecified organism Is this a current diagnosis for this admission?: Yes (5) Hypotension Qualifiers: Hypotension type: unspecified hypotension type Qualified Code(s): I95.9 - Hypotension, unspecified Is this a current diagnosis for this admission?: Yes (6) RAMANA (acute kidney injury) Is this a current diagnosis for this admission?: Yes (7) Hypocalcemia Is this a current diagnosis for this admission?: Yes (8) Hyponatremia Is this a current diagnosis for this admission?: Yes (9) Septic shock Is this a current diagnosis for this admission?: Yes (10) Debilitated Is this a current diagnosis for this admission?: Yes (11) Chronic, continuous use of opioids Is this a current diagnosis for this admission?: Yes - Plan Summary Summary: This is an 79-year-old female with a history of hypothyroidism, osteoarthritis and chronic low back pain who was admitted to ICU on 04/29 on account of sepsis with septic shock, community-acquired pneumonia, UTI, acute kidney injury, hyperkalemia, hypocalcemia and hyponatremia after she presented with altered mental status. Patient was also reported to have watery diarrhea and had nothing p.o. for 4 days before presentation. On arrival to the ER patient was altered and hypotensive. Labs were significant for a WBC count of 52.5 with left shift, H&H was 8.6/27.6. Sodium was 122, potassium 6.8 and BUN/creatinine was 100/4.28 on arrival. UA had large leukocyte esterase and multiple WBCs per high-power field. Chest x-ray was significant for left mid to lower lung opacity concerning for pneumonia. Patient was aggressively hydrated at the ED and received 4 L of LR. Right IJ access was obtained and patient was started on Levophed. She was also placed on broad-spectrum antibiotics with vancomycin, Zosyn and Flagyl. Over the course of treatment kidney function improved with a BUN/creatinine of 46/1.26, potassium level dropped to 4.5 and sodium was 126 this morning. She has been off of Levophed for more than 24 hours and blood pr essure has stayed stable. Patient continues to be altered but is able to follow command and protect her airway. She is deemed to be stable enough to be stepdown to [facility] for further care. 05/03 Blood pressure was low this morning in the 80s systolic. Improved later.. It was hard to get accurate readings on her pulse oximetry which was noted to be initially low but could be falls due to cold extremities. Notably her echocardiogram shows severe cardiomyopathy with remarkable hypokinesis EF of 2 0%, mildly elevated RVSP. On exam she is also is in heart failure acute [from septic shock] or acute on chronic with diffuse bilateral crackles and more chronic findings of some swelling in her arms and legs. She received fluids earlier in admission due to initially dehydrated state and septic shock from UTI+CAP. Currently, she is net +18L in past 4 days in terms of her fluid balance. She is still very altered though she is able to voice some words. I suspect some of her persisting encephalopathy is from low output heart failure. Cold extremities. However, her renal function did improve. Check BNP. Initially planned to initiate dopamine drip. Still on antibiotics IV for Enterococcus/E. coli UTI and left lower lobe pneumonia. 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 He reemphasized that she is a DNR/DNI. He also told me that he is already working with [facility] in [place] were in the process of evaluating her. Advance care planning 20mins I subsequently had a prolonged conversation with him about her heart failure, Encephalopathy, debility, limited mobility, the terms of hospice, palliative care, comfort care or full treatment and he states that he wants her to be made hospice. I have contacted our web content & social media manager to look into setting this up for home. We will monitor patient here over the next day or 2 to see if she deter iorates rapidly. She will be on hospice care. We will hold off on dopamine. 05/04 C/w IV meds. C/w abx for 1 more day to complete tx for PNA and UTI. Blood Cxs growing contaminant. Plan for inpatient hospice. rigging worker has discussed with patient's about inpatient hospice facility for placement. IV Lasix to see if this helps her breathing. Continue with as needed IV morphine and A tivan. 05/05/2020 Patient is medicated. She was having pain earlier today. As needed morphine is only 2 mg every 3 hours as needed. Edema in all 4 extremities. She did receive a dose of IV furosemide yesterday. She did put out over 2 L of urine with the furosemide. Will monitor and dose furosemide if needed. Urinary tract infection-E. coli and Enterococcus. Several days of IV Zosyn adequate for urinary tract infection. Several IV medications available for pain, tachycardia, nausea and anxi ety/agitation. Weight availability of hospice bed as an inpatient. No further laboratory testing needed. - Time Time Spent with patient: 15-24 minutes Medications reviewed and adjusted accordingly: Yes Anticipated Discharge Disposition: Hospice Center Anticipated Discharge Timeframe: when bed available
--- NOTE | 2020-05-05 16:26 | PDOC TRANSFER SUMMARY ---
General - Admit/Disc Date/PCP Admission Date/Primary Care Provider: 04/29/20 01:11 FABIAN BLISS MD Discharge Date: 05/05/20 - Discharge Diagnosis (1) Acute metabolic encephalopathy Is this a current diagnosis for this admission?: Yes (2) UTI (urinary tract infection) Is this a current diagnosis for this admission?: Yes (3) HFrEF (heart failure with reduced ejection fraction) Is this a current diagnosis for this admission?: Yes (4) CAP (community acquired pneumonia) Is this a current diagnosis for this admission?: Yes (5) Hypotension Is this a current diagnosis for this admission?: Yes (6) RAMANA (acute kidney injury) Is this a current diagnosis for this admission?: Yes (7) Hypocalcemia Is this a current diagnosis for this admission?: Yes (8) Hyponatremia Is this a current diagnosis for this admission?: Yes (9) Septic shock Is this a current diagnosis for this admission?: Yes (10) Debilitated Is this a current diagnosis for this admission?: Yes (11) Chronic, continuous use of opioids Is this a current diagnosis for this admission?: Yes - Additional Information Resuscitation Status: Do Not Resuscitate Discharge Diet: As Tolerated, Other (Comments) - Doubt patient has ability to safely swallow Discharge Activity: Bedrest Home Medications: Lansoprazole 30 mg PO Q6AM 06/30/12 Celecoxib [Celebrex 200 mg Capsule] 200 mg PO DAILY 12/29/15 Atenolol [Tenormin] 25 mg PO DAILY 09/03/19 Levothyroxine Sodium 25 mcg PO Q6AM 09/03/19 Hydrocodone/Acetaminophen [Yolyn 5-325 mg Tablet] 1 tab PO QIDP PRN 01/31/20 Cetirizine HCl [Zyrtec] 10 mg PO DAILY 04/29/20 Furosemide [Lasix] 40 mg PO DAILY 04/29/20 Irbesartan 300 mg PO DAILY 04/29/20 Pregabalin 150 mg PO DAILY 04/29/20 History of Present Illness Admission Date/PCP: 04/29/20 01:11 FABIAN BLISS MD History of Present Illness: ANA FELTON is a 79 year old female who presented to the ED tonight by EMS. Per ER records patient has no PO intake for 4 daysand has had diarrhea per home health nurse. The family reports patient is nrmally alert oriented x 4 but has become increasingly confused. Per EMS report upon arival the patient was hypotensive and did not respond to a fluid bolus and lovephed was started per EMS. The patient was seen and evaluated y the ED provider and was found to be hypotensive and was given a total of 4 liters lactated ringers with improvement in BP. The patient was also found to be in ARF, hyponatremic, and hyperkalemic. The chest XRAY revealed left pneumonia as well. Repeat labs showed improvement of her ARF and hyperkalemia. The patients mentation improved as well. Critical care was consulted for admission and management of this patient. Hospital Course Hospital Course: (1) Acute metabolic encephalopathy Is this a current diagnosis for this admission?: Yes (2) UTI (urinary tract infection) Qualifiers: Urinary tract infection type: site unspecified Hematuria presence: without hematuria Qualified Code(s): N39.0 - Urinary tract infection, site not specified Is this a current diagnosis for this admission?: Yes (3) HFrEF (heart failure with reduced ejection fraction) Is this a current diagnosis for this admission?: Yes (4) CAP (community acquired pneumonia) Qualifiers: Laterality: left Lung location: lower lobe of lung Qualified Code(s): J18.9 - Pneumonia, unspecified organism Is this a current diagnosis for this admission?: Yes (5) Hypotension Qualifiers: Hypotension type: unspecified hypotension type Qualified Code(s): I95.9 - Hypotension, unspecified Is this a current diagnosis for this admission?: Yes (6) RAMANA (acute kidney injury) Is this a current diagnosis for this admission?: Yes (7) Hypocalcemia Is this a current diagnosis for this admission?: Yes (8) Hyponatremia Is this a current diagnosis for this admission?: Yes (9) Septic shock Is this a current diagnosis for this admission?: Yes (10) Debilitated Is this a current diagnosis for this admission?: Yes (11) Chronic, continuous use of opioids Is this a current diagnosis for this admission?: Yes - Plan Summary Summary: This is an 79-year-old female with a history of hypothyroidism, osteoarthritis and chronic low back pain who was admitted to ICU on 04/29 on account of sepsis with septic shock, community-acquired pneumonia, UTI, acute kidney injury, hyperkalemia, hypocalcemia and hyponatremia after she presented with altered mental status. Patient was also reported to have watery diarrhea and had nothing p.o. for 4 days before presentation. On arrival to the ER patient was altered and hypotensive. Labs were significant for a WBC count of 52.5 with left shift, H&H was 8.6/27.6. Sodium was 122, potassium 6.8 and BUN/creatinine was 100/4.28 on arrival. UA had large leukocyte esterase and multiple WBCs per high-power field. Chest x-ray was significant for left mid to lower lung opacity concerning for pneumonia. Patient was aggressively hydrated at the ED and received 4 L of LR. Right IJ access was obtained and patient was started on Levophed. She was also placed on broad-spectrum antibiotics with vancomycin, Zosyn and Flagyl. Over the course of treatment kidney function improved with a BUN/creatinine of 46/1.26, potassium level dropped to 4.5 and sodium was 126 this morning. She has been off of Levophed for more than 24 hours and blood pressure has stayed stable. Patient continues to be altered but is able to follow command and protect her airway. She is deemed to be stable enough to be stepdown to [facility] for further care. 05/03 Blood pressure was low this morning in the 80s systolic. Improved later.. It was hard to get accurate readings on her pulse oximetry which was noted to be initially low but could be falls due to cold extremities. Notably her echocardiogram shows severe cardiomyopathy with remarkable hypokinesis EF of 20%, mildly elevated RVSP. On exam she is also is in heart failure acute [from septic shock] or acute on chronic with diffuse bilateral crackles and more chronic findings of some swelling in her arms and legs. She received fluids earlier in admission due to initially dehydrated state and septic shock from UTI+CAP. Currently, she is net +18L in past 4 days in terms of her fluid balance. She is still very altered though she is able to voice some words. I suspect some of her persisting encephalopathy is from low output heart failure. Cold extremities. However, her renal function did improve. Check BNP. Initially planned to initiate dopamine drip. Still on antibiotics IV for Enterococcus/E. coli UTI and left lower lobe pneumonia. 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 He reemphasized that she is a DNR/DNI. He also told me that he is already working with [facility] in [place] were in the process of evaluating her. Advance care planning 20mins I subsequently had a prolonged conversation with him about her heart failure, Encephalopathy, debility, limited mobility, the terms of hospice, palliative care, comfort care or full treatment and he states that he wants her to be made hospice. I have contacted our director social service to look into setting this up for home. We will monitor patient here over the next day or 2 to see if she deteriorates rapidly. She will be on hospice care. We will hold off on dopamine. 05/04 C/w IV meds. C/w abx for 1 more day to complete tx for PNA and UTI. Blood Cxs growing contaminant. Plan for inpatient hospice. tent worker has discussed with patient's about inpatient hospice facility for placement. IV Lasix to see if this helps her breathing. Continue with as needed IV morphine and Ativan. 05/05/2020 Patient is medicated. She was having pain earlier today. As needed morphine is only 2 mg every 3 hours as needed. Edema in all 4 extremities. She did receive a dose of IV furosemide yesterday. She did put out over 2 L of urine with the furosemide. Will monitor and dose furosemide if needed. Urinary tract infection-E. coli and Enterococcus. Several days of IV Zosyn adequate for urinary tract infection. Several IV medications available for pain, tachycardia, nausea and anxiety/agitation. Weight availability of hospice bed as an inpatient. No further laboratory testing needed. Physical Exam Vital Signs: Temp Pulse Resp BP Pulse Ox 98.2 F 96 15 100/72 94 05/05/20 08:48 05/05/20 14:05 05/05/20 14:05 05/05/20 07:32 05/05/20 14:05 Intake & Output 05/04/20 05/05/20 05/06/20 06:59 06:59 06:59 Intake Total 990 628 Output Total 1100 2175 Balance -110 -1547 Weight 83.4 kg 88.7 kg 88.7 kg General appearance: PRESENT: other - Unresponsive Mouth exam: PRESENT: dry mucosa - Mouth breathing Respiratory exam: PRESENT: rales - Bases, symmetrical. ABSENT: rhonchi, tachypnea, wheezes Cardiovascular exam: PRESENT: RRR, +S1, +S2. ABSENT: bradycardia, diastolic murmur, irregular rhythm, systolic murmur, tachycardia GI/Abdominal exam: PRESENT: diminished bowel sounds, soft. ABSENT: tenderness Rectal exam: PRESENT: deferred Gentrourinary exam: PRESENT: indwelling catheter Extremities exam: PRESENT: +1 edema - Lower extremities, other - Edema bilateral upper extremities Musculoskeletal exam: ABSENT: ambulatory Neurological exam: ABSENT: awake Psychiatric exam: ABSENT: agitated Focused psych exam: ABSENT: restlessness Results Laboratory Results: 05/03/20 05:00 05/03/20 05:00 05/03/20 06:00 Stool - Stool - Final 05/03/20 06:00 Stool - Stool Stool Culture - Final C.albicans/C.dubliniensis 04/28/20 04/29/20 04/29/20 18:35 02:02 02:02 Creatine Kinase 272 H CK-MB (CK-2) 13.30 H Troponin I 0.167 NT-Pro-B Natriuret Pep 04/29/20 04/29/20 04/29/20 07:54 13:38 21:24 Creatine Kinase CK-MB (CK-2) Troponin I 0.768 1.060 1.490 NT-Pro-B Natriuret Pep 04/30/20 04/30/20 05/03/20 11:40 20:05 05:00 Creatine Kinase CK-MB (CK-2) Troponin I 1.730 1.530 NT-Pro-B Natriuret Pep 95146 H Impressions: Abdomen/Pelvis CT 04/29/20 03:35 IMPRESSION: 1. Findings consistent with likely early or partial small bowel obstruction most likely related to an adhesion in the pelvis. Recommend NG tube placement and surgical consultation. 2. Left lower lobe pneumonia partially imaged. 3. Moderate size hiatal hernia. KUB X-Ray 04/29/20 04:41 IMPRESSION: Hiatal hernia. Findings as described. Chest X-Ray 05/03/20 00:00 IMPRESSION: 1. Improved aeration of the left upper lobe with persistent bilateral perihilar opacities. 2. Right internal jugular vascular access catheter without evidence of complication. Transfer Plan - Disposition Transfer Plan: Transfer to inpatient hospice - Time Spent with Patient Time spent with patient: Greater than 30 Minutes Qualifiers PATIENT BEING DISCHARGED WITH ANY OF THE FOLLOWING DIAGNOSIS: No Plan Discharge Plan: Transfer to inpatient hospice Time Spent: Greater than 30 Minutes
[2020-05-05 17:04] VITALS: BP 100/62
== END 2020-05-05 19:55 | disposition hospice, inpatient (51) | DRG 871 ==
LOC: ER 18:07 → EH 04-29 01:11 → 3W 05-02 23:30
PROVIDERS: ADMIT Anesthesiology; ATTEND Hospitalist
PROC: 05HM33Z Insertion of Infusion Device into Right Internal Jugular Vein, Percutaneous Approach (ICD-10-PCS; principal; 2020-04-28)
PROC: B543ZZA Ultrasonography of Right Jugular Veins, Guidance (ICD-10-PCS; 2020-04-28)
PROC: 30233N1 Transfusion of Nonautologous Red Blood Cells into Peripheral Vein, Percutaneous Approach (ICD-10-PCS; 2020-04-29)
DX: A41.9 Sepsis, unspecified organism (principal); R65.21 Severe sepsis with septic shock; J18.9 Pneumonia, unspecified organism; G93.41 Metabolic encephalopathy; N39.0 Urinary tract infection, site not specified; N17.9 Acute kidney failure, unspecified; E87.1 Hypo-osmolality and hyponatremia; E87.2 Acidosis; G82.20 Paraplegia, unspecified; I42.9 Cardiomyopathy, unspecified; I50.22 Chronic systolic (congestive) heart failure; G89.29 Other chronic pain; M54.5 Low back pain; I95.9 Hypotension, unspecified; Z88.5 Allergy status to narcotic agent; I11.0 Hypertensive heart disease with heart failure; Z82.49 Family history of ischemic heart disease and other diseases of the circulatory system; B96.20 Unspecified Escherichia coli [E. coli] as the cause of diseases classified elsewhere; B95.2 Enterococcus as the cause of diseases classified elsewhere; E83.42 Hypomagnesemia; E78.00 Pure hypercholesterolemia, unspecified; Z96.652 Presence of left artificial knee joint; Z20.828 Contact with and (suspected) exposure to other viral communicable diseases; Z88.8 Allergy status to other drugs, medicaments and biological substances; E87.5 Hyperkalemia; E83.51 Hypocalcemia; Z79.891 Long term (current) use of opiate analgesic; Z66 Do not resuscitate; Z79.899 Other long term (current) drug therapy; Z99.3 Dependence on wheelchair
CPT/HCPCS: 0202U; 36415; 36430; 71045; 74018; 74176; 80053; 81001; 82150; 82330; 82533; 82550; 82553; 82803; 82962; 83605; 83690; 83735; 83880; 84100; 84132; 84145; 84295; 84439; 84443; 84484; 85025; 86850; 86900; 86901; 86920; 87040; 87045; 87077; 87086; 87088; 87150; 87186; 87205; 87324; 87449; 93005; 93010; 93306; 96360; 96361; 99285; 99291; J0610; J1100; J1265; J1644; J1815; J1940; J2020; J2060; J2270; J2405; J2543; J3370; J3475; J3480; J3490; J7042; J7050; J7060; J7120; P9016; P9047; S0028